=== PATIENT | female | born 1950 | race Caucasian/White ===

== ENCOUNTER 2020-10-11 08:01 | Outpatient (REF) | payer MEDICARE, SELFPAY ==
[2020-10-11 12:09] LABS: Thyroid Stimulating Hormone 1.07 uIU/mL (0.32-4.0)
== END 2020-10-11 08:02 | disposition home or self-care (01) ==
LOC: HO.HMGCLDS 08:01
PROVIDERS: PCP Internal Medicine; Visit Provider Internal Medicine Endocrinology, Diabetes & Metabolism
DX: E03.8 Other specified hypothyroidism (principal)
CPT/HCPCS: 36415; 84439; 84443

== ENCOUNTER → 2020-10-18 08:49 | Outpatient (BNVA) | payer MEDICARE, SELFPAY | PROVIDERS: PCP Internal Medicine; Referring Provider Internal Medicine; Visit Provider Internal Medicine Endocrinology, Diabetes & Metabolism | DX: Z76.89 Persons encountering health services in other specified circumstances (principal) | CPT/HCPCS: Q3014 ==

== ENCOUNTER 2021-04-11 07:48 | Outpatient (REF) | payer MEDICARE, SELFPAY ==
[2021-04-11 12:58] LABS: Free T4 (Free Thyroxine) 0.95 ng/dL (0.71-1.85); Thyroid Stimulating Hormone 1.12 uIU/mL (0.32-4.0)
== END 2021-04-11 07:49 | disposition home or self-care (01) ==
LOC: HO.HMGCLDS 07:48
PROVIDERS: PCP Internal Medicine; Visit Provider Internal Medicine Endocrinology, Diabetes & Metabolism
DX: E03.8 Other specified hypothyroidism (principal); E06.3 Autoimmune thyroiditis
CPT/HCPCS: 36415; 84439; 84443

== ENCOUNTER 2021-11-21 12:17 | Emergency (ER) | payer MEDICARE, SELFPAY ==
--- NOTE | ~2021-11-21 | CT_ITS ---
EXAMINATION: CT HEAD WITHOUT CONTRAST CLINICAL INFORMATION: Fall. Laceration to forehead. Headache. COMPARISON: Previous brain MRI August 2012 TECHNIQUE: Contiguous axial imaging was performed from the skull base to vertex without intravenous administration of contrast. This CT examination was performed using dose optimization techniques as appropriate, variously including the following: *Automated exposure control *Adjustment of mA and/or kV according to patient size (this includes techniques or standardized protocols for targeted exams where dose is matched to indication/reason for exam; i.e. extremities or head) *Use of iterative reconstruction technique DLP: 753 mGy-cm FINDINGS: There is no evidence of an extra-axial collection. There is no evidence of intra-axial or extra-axial hemorrhage. The ventricles and extra-axial CSF spaces are appropriate for age. Martinez-white matter differentiation is normal. No mass, mass effect or infarct is seen. Review of bone windows is normal. No skull fracture is seen. Visualized paranasal sinuses, mastoid air cells and middle ears are clear. There is soft tissue swelling over the left frontal bone. There is some soft tissue swelling and air seen over the bilateral midline frontal bones. CT/CT head/brain wo con IMPRESSION: No acute intracranial findings. No skull fracture. Soft tissue swelling over the frontal bones.
--- NOTE | ~2021-11-21 | CT_ITS ---
EXAMINATION: CT CERVICAL SPINE WITHOUT CONTRAST CLINICAL INFORMATION: Fall. Head injury. Neck pain. Rule out fracture. COMPARISON: None TECHNIQUE: Axial images through the cervical spine without contrast. Sagittal and coronal reconstructions on the technologist workstation were performed. This CT examination was performed using dose optimization techniques as appropriate, variously including the following: *Automated exposure control *Adjustment of mA and/or kV according to patient size (this includes techniques or standardized protocols for targeted exams where dose is matched to indication/reason for exam; i.e. extremities or head) *Use of iterative reconstruction technique DLP: 325 mGy-cm FINDINGS: Bone alignment is normal. No fracture or dislocation is seen. There is degenerative spondylosis and degenerative disc disease from C4-C5 to C6-C7. There are degenerative changes at the C1 dens articulation. There is bilateral facet arthritis. Prevertebral soft tissues are normal. There is bilateral carotid calcification. Visualized lung apices are clear. CT/CT cervical spine wo con IMPRESSION: Degenerative changes. No fracture or dislocation seen. Fleischner guidelines were followed.
[2021-11-21 12:32] VITALS: BP 139/66; PULSE 101; RESP 18; TEMP 36.8; O2SAT 100; BMI 25.8
--- NOTE | 2021-11-21 13:53 | ED_ITS ---
HPI - Fall General Chief Complaint: Fall Stated Complaint: Fall/head lac Time Seen by Provider: 11/21/21 12:28 Source: patient Mode of arrival: ambulatory Limitations: no limitations History of Present Illness HPI Narrative: 71-year-old female who presents emergency department for evaluation of a fall laceration to her forehead. The patient was walking her dog. She states she tripped and fell landing on her forehead. She denied any loss of consciousness. She states she was able to get up after the injury. She was brought to the emergency department by her brother. Here in the emergency department she has no complaints. She denies headache, nausea, vomiting, numbness, weakness, neck pain, chest pain, abdominal pain or extremity pain. The patient believes that her last tetanus shot was greater than 5 years prior but she is not certain. She is not on any blood thinners. complaint: fall Onset (ago): minute(s) (30) Fall from: standing Fall witnessed: no Place fall occurred: street Loss of consciousness: none Symptoms prior to fall: none Context: tripped/slipped Location of injury: head Associated symptoms (after fall): denies Related Data Home Medications Medication Instructions Recorded Confirmed fluoxetine 20 mg capsule mg PO 10/18/20 10/18/20 lamotrigine 200 mg tablet 200 mg PO BID 10/18/20 10/18/20 lorazepam 1 mg tablet 1 mg PO TID PRN 10/18/20 10/18/20 quetiapine 25 mg tablet 25 mg PO BEDTIME PRN 10/18/20 10/18/20 Previous Rx's Medication Instructions Recorded Levoxyl 112 mcg tablet 112 mcg PO DAILY 90 Days #60 tab NS 09/06/21 (levothyroxine) Allergies Allergy/AdvReac Type Severity Reaction Status Date / Time anasperine Allergy Unknown Unknown Uncoded 11/21/21 12:32 Review of Systems Review of Systems: Yes all other systems are reviewed and are negative COUNTS INCLUDE 234 BEDS AT THE [facility] Past Medical History COUNTS INCLUDE 234 BEDS AT THE [facility] Narrative: Past medical history: Depression, hypothyroidism. Past surgical history: Cholecystectomy, spinal surgery secondary to spinal stenosis. Social history: The patient denies tobacco, alcohol and drug use. Medical History Hypothyroidism Surgical History History of back surgery Hx of cholecystectomy Family History Family History (Updated 10/18/20 @ 08:11 by MIKE Cruz) Father Heart disease Mother Diabetes mellitus Social History Social History (Updated 10/18/20 @ 08:11 by MIKE Cruz) Advance Directives: No Advance Directives Information Provided: No Physical Exam Vital Signs: Vital Signs: Last Vital Signs Temp 98.2 F 11/21/21 15:22 Pulse 94 11/21/21 15:22 Resp 16 11/21/21 15:22 BP 119/58 L 11/21/21 15:22 Pulse Ox 96 11/21/21 15:22 BMI result Body Mass Index 25.8 Const: General: cooperative and no acute distress Orientation/co nsciousness: oriented to person and oriented to place Limitations: no limitations HENMT: Other: 13 cm C-shaped flap laceration to the forehead, it is not actively bleeding, she has tenderness with palpation around the area of the laceration with no hematoma and no depressed palpable skull fracture. Ears: external ears normal General nose exam: Normal external nose present Face and sinus: Yes normal facial exam Mouth: Normal oral and palatal mucosa present Throat: Yes posterior oropharynx normal Eyes: General: appearance normal, both eyes and all related structures Pupils: Equal, round and reactive pupils present Neck: Neck: Yes normal visual inspection, Yes no lymphadenopathy, Yes trachea midline and Yes supple Chest: Chest palpation & inspection: normal inspection of the chest and normal palpation of entire chest wall Resp: Effort & Inspection: normal respiratory effort and able to speak in c omplete sentences Auscultation: clear to auscultation bilaterally Cardio: Rate: regular rate Rhythm: regular rhythm Heart sounds: S1 normal heart sound present, S2 normal heart sound present and no murmurs GI: Inspection: Yes normal to inspection Palpation (GI): Soft to palpation, nontender and no guarding Auscultation: normal bowel sounds : General: Yes no CVA tenderness Back/Spine/Pelvis: Back: no CVA tenderness Skin: General skin exam: no rashes or lesions noted Neuro: General: oriented to person and oriented to place Cranial nerves: Yes CN's II-XII intact bilaterally and Yes Equal, round and reactive pupils present Cognition (Neuro): normal cognition Motor exam (neuro): 5/5 motor strength present throughout Extrem: General: Yes normal to inspection Psych: Appearance: grossly normal Speech and movement: Normal speech and movement present Affect: normal affect Attitude: cooperative Thought process: Normal thought process present Thought content: Normal thought content present Course Course Course Narrative: 71-year-old female who presents emergency department for evaluation of a trip and fall with a large flap laceration (12 cm) to her forehead. The patient had no loss of consciousness. She has no symptoms since the fall. Vital signs revealed an elevated pulse of 101 otherwise were unremarkable. Physical examination did reveal large flap laceration otherwise was unremarkable with a normal neurologic exam. Patient was ordered to get a Tdap vaccination IM. I also ordered a CT scan of the brain and cervical spine to rule out fracture/bleed. 1358: The patient's flap laceration was repaired by me, the patient required 15 Vicryl 5.0 internal stitches and 21 nylon 5.0 external stitches to close the wound. Patient tolerated the procedure well. CT scan of the head and cervical spine are still spending, the patient remained stable. 1529: CT scan of the head revealed soft tissue swelling over the frontal area but no acute fracture or bleed. CT scan of the cervical spine was consistent with degenerative arthritis otherwise unremarkable. The patient was discharged home. She was advised to contact her PCP to see if they can remove the stitches in 7-10 days, also refer her to the on-call surgeon in the event that her PCP is unable to remove the stitches or she can return to the emergency department. Procedures Laceration C-shaped flap laceration to forehead: Site: scalp and other (Forehead) Size (cm): 12 Description: flap Depth: involves muscle layer (Full skin thickness with exposure of underlying muscle/bone) Local Anesthetic: lidocaine 1% and bupivacaine 0.5% Amount of anesthesia used (mL): 10 Pre-repair: wound explored, irrigated extensively, deep structures intact and wound margins revised (Wound margins were undermined using scissors) Skin layer closed with: nylon Size (cm): 5-0 Number of sutures: 21 Technique: simple, interrupted Subcutaneous layer closed with: vicryl Size: 5-0 Number of sutures: 15 Technique: simple, interrupted Discharge Plan Discharge Clinical Impression: Fall, Complex laceration of forehead Patient Disposition: Home, Self-Care Instructions: Laceration (DC), Head Injury (ED) Additional Instructions: The CT scan of your head revealed no skull fracture and no bleeding in the brain. The CT scan of your neck revealed no broken bones. You had a complicated flap laceration to the scalp over your forehead. Your laceration was closed with 15 internal stitches and 21 external stitches. The external stitches will need to be removed in 7-10 days by your PCP. If your primary provider cannot remove the stitches, you then you can try our on-call surgeon (Dr. Braxton) to see if he can remove the stitches in his office or return to the emergency department. Apply bacitracin twice a day to the laceration until the stitches are removed. In order to reduce the scarring I want you to use vitamin-E. After the stitches are removed, purchased vitamin E capsules, break open the capsules and apply the liquid to the wound twice a day for 1 month. Vitamin-E slows down healing, scarring is caused by over healing. Try to keep sun off the wound since tanning the wound will also increase scarring. Follow-up with your doctor in 7-10 days. Please return to the emergency department if your symptoms get worse or if you develop any symptoms that are concerning to you. Please read the head injury instructions and the laceration instructions Prescriptions: No Action levothyroxine [Levoxyl] 112 mcg tablet 112 mcg PO DAILY 90 Days Qty: 60 0RF Rx Instructions: Dispense as written, brand medically necessary. Do not substitute. fluoxetine 20 mg capsule PO 0RF lamotrigine 200 mg tablet 200 mg PO BID 0RF lorazepam 1 mg tablet 1 mg PO TID PRN0RF quetiapine 25 mg tablet 25 mg PO BEDTIME PRN0RF Referrals: Joseluis Braxton MD [Physician] - 1 week
[2021-11-21] MEDS: Diphth,Pertus(ACell),Tet Adult 0.5 ML SYRINGE IM (14:09)
[2021-11-21] MEDS: Bacitracin Oint 14 GM TUBE 1 APPL TOPICAL (14:44)
[2021-11-21 15:22] VITALS: BP 119/58; PULSE 94; RESP 16; TEMP 36.8; O2SAT 96
--- NOTE | 2021-11-21 16:40 | PC.NURSE ---
HAIR CLEANED, AND DSD PLACED ON FOREHEAD LACERATION. NO ACTIVE BLEEDING GOOD WOUND APPROXIMATION, BACITRACIN NONSTICK WRAP
== END 2021-11-21 16:41 | disposition home or self-care (01) ==
PROVIDERS: Emergency Provider Emergency Medicine Emergency Medical Services; PCP Internal Medicine
DX: S01.81XA Laceration without foreign body of other part of head, initial encounter (principal); W01.0XXA Fall on same level from slipping, tripping and stumbling without subsequent striking against object, initial encounter; Y93.K1 Activity, walking an animal; Y92.480 Sidewalk as the place of occurrence of the external cause; Y99.9 Unspecified external cause status
CPT/HCPCS: 13132; 13133; 70450; 72125; 90471; 90715; 99283; 99284

== ENCOUNTER 2021-11-30 08:01 | Emergency (ER) | payer MEDICARE, SELFPAY ==
[2021-11-30 08:08] VITALS: BP 135/62; PULSE 88; RESP 17; TEMP 36.6; O2SAT 98; BMI 24.3
--- NOTE | 2021-11-30 09:02 | ED.GENADULT ---
HPI - General Adult General Chief complaint: General Medical Stated complaint: suture removal Time Seen by Provider: 11/30/21 08:22 Source: patient Mode of arrival: ambulatory History of Present Illness HPI narrative: 71-year-old female presenting to the ED for suture removal from forehead s/p mechanical slip and fall on 11/21. Patient was evaluated in our ED after incident where 21 external sutures were placed, imaging was unremarkable at that time. Patient denies complaints at present including fever, headache, nausea/vomiting, drainage from area, dehiscences. Onset (ago): day(s) Related Data Home Medications Medication Instructions Recorded Confirmed fluoxetine 20 mg capsule mg PO 10/18/20 10/18/20 lamotrigine 200 mg tablet 200 mg PO BID 10/18/20 10/18/20 lorazepam 1 mg tablet 1 mg PO TID PRN 10/18/20 10/18/20 quetiapine 25 mg tablet 25 mg PO BEDTIME PRN 10/18/20 10/18/20 Previous Rx's Medication Instructions Recorded Levoxyl 112 mcg tablet 112 mcg PO DAILY 90 Days #60 tab NS 09/06/21 (levothyroxine) Allergies Allergy/AdvReac Type Severity Reaction Status Date / Time anasperine Allergy Unknown Unknown Uncoded 11/21/21 12:32 Review of Systems Review of Systems: Constitutional: No Fever, No Chills ENT/Mouth: No Ear Pain, No Nasal Congestion, No sore throat, No Rhinorrhea, No Swallowing Difficulty Cardiovascular: No Chest Pain, No SOB Respiratory: No Cough, No Sputum, No Wheezing Gastrointestinal: No Nausea, No Vomiting, No Diarrhea, No Abdominal pain Genitourinary:No Dysuria, No Urinary Frequency, No Hematuria Musculoskeletal: No joint pain, No Myalgias, No Joint Swelling Skin: + Skin Lesions, No rash Neuro: No Weakness, No Numbness, No Paresthesias Yes all other systems are reviewed and are negative [facility] Past Medical History Attestation statement: The following information was validated with the patient. Medical History Hypothyroidism Surgical History History of back surgery Hx of cholecystectomy Family History Family History Father Heart disease Mother Diabetes mellitus Social History Social History Advance Directives: No Advance Directives Information Provided: Yes Physical Exam ED Vital Signs: Vital Signs - 24 hr 11/30/21 08:08 Temperature 97.9 F Pulse Rate 88 Respiratory Rate 17 Blood Pressure 135/62 Pulse Oximetry 98 BMI result Body Mass Index 24.3 Const General: cooperative and healthy appearing Orientation/consciousness: patient oriented x3 Limitations: no limitations HENMT Other: C-shaped laceration in noted to forehead with 21 sutures intact. Proper wound healing. No overlying cellulitis. No drainage. No fluctuance/induration Head: Yes normal to inspection Ears: hearing grossly normal bilaterally General nose exam: Normal external nose present Face and sinus: Yes normal facial exam Eyes General: appearance normal, both eyes and all related structures Eyelids: Yes eyelids normal Conjunctivae: conjunctivae normal Sclerae: sclerae normal EOM: EOMs intact bilaterally Neck Neck: Yes normal visual inspection and Yes no meningeal signs Resp Effort & Inspection: normal respiratory effort and no respiratory distress Auscultation: clear to auscultation bilaterally Cardio Rate: regular rate Heart sounds: S1 normal heart sound present and S2 normal heart sound present Skin Rashes: no rashes Wounds: no wounds Neuro General: patient oriented x3, gait normal, tone normal, moves all extremities, no meningeal signs and no focal motor deficits Gait exam (Neuro): Normal gait present Extrem General: Yes normal to inspection Procedures Procedure Narrative Procedure Narrative: Suture removal: 21 sutures removed from forehead. Mild central dehiscence, Steri-Strips applied. No overlying cellulitis/streaking, no drainage Medical Decision Making [facility] Narrative Medical decision making narrative: 71-year-old female presenting to the ED for suture removal from forehead s/p mechanical slip and fall on 11/21. On exam vital signs stable, NAD, 21 sutures intact to forehead, removed with mild dehiscence to central laceration. Steri-Strips applied. No overlying cellulitis. Discussed worrisome signs and symptoms and strict return precautions with patient. She verbalized understanding feel safe for discharge home at this time Medical Records Medical records reviewed: Yes I reviewed the patient's medical records. Lab Data Lab results reviewed: Yes I reviewed the patient's lab results. Discharge Plan Discharge Clinical Impression: Visit for suture removal, Skin wound closed with sterile strip Patient Disposition: Home, Self-Care Instructions: Stitches Removal (ED) Additional Instructions: Your stitches removed today in the emergency department, you may apply bacitracin or Neosporin and anti scar cream like Moderna Please avoid the sun as this will cause scarring, apply sunblock if you plan on being exposed to sunlight If area begins to look infected, is red, there is drainage or you have fever, headache, persistent nausea or vomiting please return to the emergency department Prescriptions: No Action levothyroxine [Levoxyl] 112 mcg tablet 112 mcg PO DAILY 90 Days Qty: 60 0RF Rx Instructions: Dispense as written, brand medically necessary. Do not substitute. fluoxetine 20 mg capsule PO 0RF lamotrigine 200 mg tablet 200 mg PO BID 0RF lorazepam 1 mg tablet 1 mg PO TID PRN0RF quetiapine 25 mg tablet 25 mg PO BEDTIME PRN0RF Referrals: Jami Mckeon MD [Primary Care Provider] - 2 days Eliezer Naranjo MD [Physician] - 2 days Interventions: ED Discharge Assessment Last Done: 11/30/21 09:24 Discharge Date/Time: 11/30/21 09:25
== END 2021-11-30 09:25 | disposition home or self-care (01) ==
PROVIDERS: Emergency Provider Emergency Medicine; PCP Internal Medicine
DX: Z48.02 Encounter for removal of sutures (principal); S01.81XD Laceration without foreign body of other part of head, subsequent encounter; W01.0XXD Fall on same level from slipping, tripping and stumbling without subsequent striking against object, subsequent encounter
CPT/HCPCS: 99283

== ENCOUNTER 2022-01-11 13:28 | Outpatient (REF) | payer MEDICARE, SELFPAY ==
[2022-01-11 16:58] LABS: Free T4 (Free Thyroxine) 1.18 ng/dL (0.71-1.85); Thyroid Stimulating Hormone 0.02 uIU/mL (0.32-4.0)
== END 2022-01-11 13:29 | disposition home or self-care (01) ==
LOC: HO.HMGCLDS 13:28
PROVIDERS: PCP Internal Medicine; Visit Provider Internal Medicine Endocrinology, Diabetes & Metabolism
DX: E03.8 Other specified hypothyroidism (principal); E06.3 Autoimmune thyroiditis
CPT/HCPCS: 36415; 84439; 84443

== ENCOUNTER 2022-02-28 13:53 | Outpatient (REF) | payer MEDICARE, SELFPAY ==
[2022-02-28 17:12] LABS: Free T4 (Free Thyroxine) 0.92 ng/dL (0.71-1.85); Thyroid Stimulating Hormone 0.11 uIU/mL (0.32-4.0)
== END 2022-02-28 13:54 | disposition home or self-care (01) ==
LOC: HO.HMGCLDS 13:53
PROVIDERS: Visit Provider Internal Medicine Endocrinology, Diabetes & Metabolism
DX: E03.8 Other specified hypothyroidism (principal); E06.3 Autoimmune thyroiditis
CPT/HCPCS: 36415; 84439; 84443

== ENCOUNTER 2022-03-26 10:32 | Outpatient (REF) | payer MEDICARE, SELFPAY ==
[2022-03-26 11:18] LABS: MANUAL DIFF FLAG NO
[2022-03-26 11:26] LABS: Basophils Absolute Auto 0.1 X10*3/uL (0.0-0.2); Basophils Percent Auto 0.9 % (0-2); Eosinophils Absolute Auto 0.2 X10*3/uL (0.0-0.4); Eosinophils Percent Auto 3.2 % (0-4); Hematocrit 40.1 % (37.0-47.0); Hemoglobin 13.2 g/dl (12.0-16.0); Imm Gran Abs Auto 0.02 X10*3/uL (0.00-0.03); Imm Gran Pct Auto 0.4 % (0.0-0.4); Lymphocytes Absolute Auto 1.4 X10*3/uL (1.2-4.9); Mean Corpuscular HGB Conc 32.9 g/dl (31.0-35.0); Mean Corpuscular Hemoglobin 31.1 pg (27.0-33.0); Mean Corpuscular Volume 94.6 fL (80.0-98.0); Mean Platelet Volume 9.6 fL (9.4-12.3); Monocytes Absolute Auto 0.5 X10*3/uL (0.1-1.2); Monocytes Percent Auto 9.7 % (2-11); Neutrophils Absolute Auto 3.4 x10*3/uL (2.0-8.3); Neutrophils Percent Auto 60.8 % (45-73); Platelet Count 255 X10*3/uL (160-400); Red Blood Count 4.24 X10*6/uL (4.20-5.50); White Blood Count 5.6 X10*3/uL (4.8-10.8)
[2022-03-26 11:55] LABS: Alanine Aminotransferase 6 U/L (0-31); Albumin Level 4.2 g/dL (3.5-5.0); Alkaline Phosphatase 90 U/L (39-117); Anion Gap 12 (12-20); Aspartate Amino Transferase 9 U/L (5-31); Bilirubin Total 0.7 mg/dL (0.0-1.0); Blood Urea Nitrogen 16 mg/dL (9-16); Calcium 9.3 mg/dL (8.4-10.2); Carbon Dioxide 27 mmol/L (22-29); Chloride 106 mmol/L (96-108); Cholesterol 186 mg/dL; Estimated Glomerular Filt Rate > 60; Glucose Fasting 99 mg/dL (60-99); HDL Cholesterol 60 mg/dL; LDL Cholesterol Calculated 108 mg/dl; Potassium 4.2 mmol/L (3.3-5.1); Sodium 141 mmol/L (135-145); Total Protein 6.6 g/dL (6.5-8.0); Triglycerides 91 mg/dL
[2022-03-26 12:23] LABS: Vitamin B12 228 pg/mL (200-900)
[2022-03-30 15:26] LABS: Vitamin D 25-OH, D2 <4 ng/mL; Vitamin D 25-OH, D3 33 ng/mL; Vitamin D 25-OH, Total 33 ng/mL (30-100)
== END 2022-03-26 10:33 | disposition home or self-care (01) ==
LOC: HO.HMGCLDS 10:32
PROVIDERS: PCP Internal Medicine; Visit Provider Internal Medicine
DX: Z00.01 Encounter for general adult medical examination with abnormal findings (principal); E03.8 Other specified hypothyroidism; Z86.39 Personal history of other endocrine, nutritional and metabolic disease
CPT/HCPCS: 36415; 80053; 80061; 82306; 82607; 85025

== ENCOUNTER → 2022-03-29 08:18 | Outpatient (BNVA) | payer MEDICARE, SELFPAY | PROVIDERS: PCP Internal Medicine; Visit Provider Internal Medicine Endocrinology, Diabetes & Metabolism | DX: E03.8 Other specified hypothyroidism (principal); E06.3 Autoimmune thyroiditis | CPT/HCPCS: 36415; 84439; 84443; 99212 ==

== ENCOUNTER 2022-03-29 08:54 | Outpatient (REF) | payer MEDICARE, SELFPAY ==
[2022-03-29 11:11] LABS: Free T4 (Free Thyroxine) 0.87 ng/dL (0.71-1.85); Thyroid Stimulating Hormone 0.29 uIU/mL (0.32-4.0)
== END 2022-03-29 08:55 | disposition home or self-care (01) ==
LOC: HO.10HDL 08:54
PROVIDERS: Visit Provider Internal Medicine Endocrinology, Diabetes & Metabolism
DX: Z13.89 Encounter for screening for other disorder (principal)
CPT/HCPCS: 36415; 84439; 84443

== ENCOUNTER 2022-04-03 12:29 | Outpatient (REF) | payer MEDICARE, SELFPAY ==
--- NOTE | ~2022-04-03 | MM_ITS ---
EXAMINATION: BONE DENSITOMETRY CLINICAL INDICATION: Menopause. COMPARISON: Baseline BD dated 01/27/2009. TECHNIQUE: Using a [employer] DXA System (software version: 13.1) manufactured by [employer], dual-energy x-ray absorptiometry was performed of the lumbar spine and left hip. The images are of good technical quality. Summary results are attached. FINDINGS: AP SPINE L1-L2 (excluding L3 and L4): The data of L1-L4 has been changed to exclude the L3 and L4 vertebral bodies, because degenerative changes at these levels may cause overestimation of lumbar spine density. Current: BMD 1.317 g/cm2, Z-score 2.6, T-score 1.3, normal, 5.1% decrease from baseline (<5% change is not significant). Baseline: BMD 1.388 g/cm2. LEFT FEMUR, NECK: Current: BMD 0.800 g/cm2, Z-score -0.2, T-score -1.7, osteopenia. LEFT FEMUR, TOTAL: Current: BMD 0.905 g/cm2, Z-score 0.5, T-score -0.8, normal. IDENTIFIED RISK FACTORS: Menopause, recurrent falls. HISTORY OF FRACTURE: None listed. MEDICATIONS: None listed. MM/XR DEXA axial skeleton IMPRESSION: 1. DIAGNOSIS: Osteopenia based on the lowest T-score value of -1.7 in the femoral neck applying World Health Organization criteria. 2. 10-YEAR FRACTURE RISK PREDICTION, FRAX: Major osteoporotic fracture (clinical spine, forearm, hip or shoulder) 10.8%. Hip fracture 1.9%. 3. Treatment Recommendations: NOF guidelines recommend consideration for treatment in postmenopausal women and men age 50 and older presenting with the following: -A hip or vertebral (clinical or morphometric) fracture. -T-score less than or equal to -2.5 at the femoral neck or spine after appropriate evaluation to exclude secondary causes. -Low bone mass at the hip or spine and a 10-year fracture probability by FRAX of greater than or equal to 3% for hip fracture or greater than or equal to 20% for major osteoporotic fracture based on the [place] adapted WHO algorithm. 4. Other Recommendations: All treatment decisions require clinical judgment and consideration of individual patient factors, including patient preferences, comorbidities, previous drug use, risk factors not captured in the FRAX model (e.g. frailty, falls, vitamin D deficiency, increased bone turnover, interval significant decline in bone density) and possible under or overestimation of fracture risk by FRAX. Additional medical evaluation for secondary cause of low bone mineral density may be appropriate. FUTURE SCAN RECOMMENDATION: People with diagnosed cases of osteoporosis or at high risk for fracture should have regular bone mineral density tests. For patients eligible for Medicare, routine testing is allowed once every 2 years. The testing frequency can be increased to one year for patients who have rapidly progressing disease, those who are receiving or discontinuing medical therapy to restore bone mass, or have additional risk factors.
--- NOTE | ~2022-04-03 | MM_ITS ---
EXAMINATION: MM SCREENING DIGITAL BREAST TOMOSYNTHESIS, BILATERAL CLINICAL INFORMATION: Screening. Asymptomatic. Benign right ultrasound-guided biopsy 10/06/2007 (fibroadenoma, no clip placed - measurements 1.2 x 0.6 x 1.0 cm). The lifetime risk of breast cancer based on the Tyrer-Cuzick Model is 6%. COMPARISON: Current exam is new baseline. Comparison is made with reports from prior purged imaging (no images for direct comparison): Mammography 01/27/2009, 10/01/2007, 09/22/2007, ultrasound right breast 10/01/2007, ultrasound-guided right breast biopsy 10/06/2007. TECHNIQUE: Digital breast tomosynthesis is performed in both the craniocaudal and mediolateral oblique views along with computer-aided detection (CAD). Synthesized 2D images are generated from the tomosynthesis. FINDINGS: There are scattered areas of fibroglandular density (ACR BI-RADS breast composition Category b). Left breast has a 1 cm probable intradermal mass with smooth margins posterior medial breast near the inframammary fold. The remainder of the breasts show no significant mass or architectural abnormality or abnormal calcification. The axilla are unremarkable. There is history of prior right breast biopsy 12:00 position in 2010 (fibroadenoma, no clips placed). MM/MM tomosynthesis screening BI IMPRESSION: Left: -Smooth 1 cm mass posterior inferior medial breast, likely intradermal lesion. Right: -No mammographic evidence of malignancy. ASSESSMENT: BI-RADS 0: Incomplete - Need Additional Imaging Evaluation RECOMMENDATION: 1. Targeted ultrasound left breast. 2. Radiology department staff will contact the patient for additional imaging. This patient's information was entered into a reminder system with a target due date for their next mammogram.
== END 2022-04-03 12:30 | disposition home or self-care (01) ==
LOC: HO.MAMMO 12:29
PROVIDERS: PCP Internal Medicine; Visit Provider Internal Medicine
DX: Z12.31 Encounter for screening mammogram for malignant neoplasm of breast (principal); Z13.820 Encounter for screening for osteoporosis; Z78.0 Asymptomatic menopausal state
CPT/HCPCS: 77063; 77067; 77080

== ENCOUNTER 2022-04-12 12:53 | Outpatient (REF) | payer MEDICARE, SELFPAY ==
--- NOTE | ~2022-04-12 | US_ITS ---
EXAMINATION: US DIAGNOSTIC ULTRASOUND BREAST, LEFT CLINICAL INFORMATION: Recall from new baseline mammography for smooth mass posterior inferior medial left breast, likely intradermal. COMPARISON: New baseline mammography 04/03/2022. TECHNIQUE: Ultrasound left breast is targeted to the area of mammographic interest using grayscale imaging and color Doppler without and with harmonics. FINDINGS: There is an intradermal hypoechoic circumscribed oval mass posterior inferior medial left breast measuring 1.1 x 0.6 x 1.0 cm. There are some heterogeneous internal echogenicity. Increased through-transmission of sound is present. There is claw sign with the deep dermis. There is no internal or peripheral color flow. Results are discussed with the patient at time of visit. The finding is consistent with intradermal cystic lesion, likely sebaceous cyst. Patient confirms that the finding has been present for several years and without significant change. If increasing, it would be amenable to simple surgical excision. US/US breast LT limited IMPRESSION: Cystic intradermal lesion posterior inferior medial left breast 1.1 cm consistent with sebaceous cyst. ASSESSMENT: BI-RADS 2: Benign RECOMMENDATION: 1. Patient may be managed based on the clinical impression. If clinically indicated, the lesion would be amenable to simple surgical excision. 2. Otherwise, routine annual screening mammography. This patient's information was entered into a reminder system with a target due date for their next mammogram.
== END 2022-04-12 12:54 | disposition home or self-care (01) ==
LOC: HO.MAMMO 12:53
PROVIDERS: PCP Internal Medicine; Visit Provider Internal Medicine
DX: N63.25 Unspecified lump in the left breast, overlapping quadrants (principal)
CPT/HCPCS: 76642

== ENCOUNTER 2022-05-15 11:38 | Outpatient (REF) | payer MEDICARE, SELFPAY ==
[2022-05-15 14:27] LABS: Free T4 (Free Thyroxine) 0.82 ng/dL (0.71-1.85); Thyroid Stimulating Hormone 1.72 uIU/mL (0.32-4.0)
== END 2022-05-15 11:39 | disposition home or self-care (01) ==
LOC: HO.HMGCLDS 11:38
PROVIDERS: PCP Internal Medicine; Visit Provider Internal Medicine Endocrinology, Diabetes & Metabolism
DX: E06.3 Autoimmune thyroiditis (principal); E03.8 Other specified hypothyroidism
CPT/HCPCS: 36415; 84439; 84443

== ENCOUNTER → 2022-09-27 08:52 | Outpatient (BNVA) | payer MEDICARE, SELFPAY | PROVIDERS: PCP Internal Medicine; Visit Provider Internal Medicine Endocrinology, Diabetes & Metabolism | DX: E03.8 Other specified hypothyroidism (principal); E06.3 Autoimmune thyroiditis | CPT/HCPCS: 99212 ==

== ENCOUNTER 2023-03-22 09:28 | Outpatient (REF) | payer MEDICARE, SELFPAY ==
[2023-03-22 11:24] LABS: MANUAL DIFF FLAG NO
[2023-03-22 11:27] LABS: Basophils Absolute Auto 0.1 X10*3/uL (0.0-0.2); Eosinophils Absolute Auto 0.2 X10*3/uL (0.0-0.4); Eosinophils Percent Auto 2.6 % (0-4); Hematocrit 41.5 % (37.0-47.0); Imm Gran Abs Auto 0.02 X10*3/uL (0.00-0.03); Imm Gran Pct Auto 0.3 % (0.0-0.4); Lymphocytes Absolute Auto 1.2 X10*3/uL (1.2-4.9); Lymphocytes Percent Auto 17.5 % (20-40); Mean Corpuscular HGB Conc 33.7 g/dl (31.0-35.0); Mean Corpuscular Hemoglobin 32.3 pg (27.0-33.0); Mean Corpuscular Volume 95.6 fL (80.0-98.0); Mean Platelet Volume 9.8 fL (9.4-12.3); Monocytes Absolute Auto 0.6 X10*3/uL (0.1-1.2); Neutrophils Absolute Auto 4.8 x10*3/uL (2.0-8.3); Neutrophils Percent Auto 70.6 % (45-73); Platelet Count 317 X10*3/uL (160-400); Red Blood Count 4.34 X10*6/uL (4.20-5.50); Red Cell Distribution Width 13.3 % (11.0-16.0); White Blood Count 6.9 X10*3/uL (4.8-10.8)
[2023-03-22 12:12] LABS: Alanine Aminotransferase 10 U/L (0-31); Albumin Level 4.3 g/dL (3.5-5.0); Alkaline Phosphatase 65 U/L (39-117); Anion Gap 16 (12-20); Aspartate Amino Transferase 14 U/L (5-31); Bilirubin Total 0.9 mg/dL (0.0-1.0); Blood Urea Nitrogen 20 mg/dL (9-16); Calcium 10.1 mg/dL (8.4-10.2); Carbon Dioxide 26 mmol/L (22-29); Chloride 103 mmol/L (96-108); Cholesterol 247 mg/dL; Estimated Glomerular Filt Rate 43; Glucose Fasting 95 mg/dL (60-99); HDL Cholesterol 62 mg/dL; LDL Cholesterol Calculated 165 mg/dl; Potassium 4.1 mmol/L (3.3-5.1); Sodium 141 mmol/L (135-145); Total Protein 7.2 g/dL (6.5-8.0); Triglycerides 100 mg/dL
[2023-03-22 12:21] LABS: TSH reflex Free T4 20.13 uIU/mL (0.32-4.0)
[2023-03-22 14:39] LABS: Free T4 (Free Thyroxine) 0.94 ng/dL (0.71-1.85)
== END 2023-03-22 09:29 | disposition home or self-care (01) ==
LOC: HO.HMGCLDS 09:28
PROVIDERS: PCP Internal Medicine; Visit Provider Internal Medicine
DX: Z00.01 Encounter for general adult medical examination with abnormal findings (principal); E03.8 Other specified hypothyroidism; F31.9 Bipolar disorder, unspecified; F41.1 Generalized anxiety disorder
CPT/HCPCS: 36415; 80053; 80061; 84439; 84443; 85025

== ENCOUNTER 2023-04-16 10:19 | Outpatient (REF) | payer MEDICARE, SELFPAY ==
--- NOTE | ~2023-04-16 | MM_ITS ---
EXAMINATION: MM SCREENING DIGITAL BREAST TOMOSYNTHESIS, BILATERAL CLINICAL INFORMATION: Screening. Asymptomatic. Patient has a known sebaceous cyst in the region of the left breast, 15 cm from the nipple. The lifetime risk of breast cancer based on the Tyrer-Cuzick Model is 4%. COMPARISON: Mammography: This study is compared with prior exams dating back to 2017. TECHNIQUE: Digital breast tomosynthesis is performed in both the craniocaudal and mediolateral oblique views along with computer-aided detection (CAD). Synthesized 2D images are generated from the tomosynthesis. FINDINGS: There are scattered areas of fibroglandular density (ACR BI-RADS breast composition Category b). There are no significant masses, abnormal calcifications, or other abnormalities. Scattered benign calcifications are present in each breast. The known sebaceous cyst in the medial aspect of the left breast is slightly larger. MM/MM tomosynthesis screening BI IMPRESSION: No mammographic evidence of malignancy. ASSESSMENT: BI-RADS BI-RADS 2 - Benign Findings RECOMMENDATION: Routine annual mammography screening. 1 year F/U This examination should not preclude the clinical evaluation of a suspicious palpable abnormality. This patient's information was entered into a reminder system with a target due date for their next mammogram.
== END 2023-04-16 10:20 | disposition home or self-care (01) ==
LOC: HO.MAMMO 10:19
PROVIDERS: PCP Internal Medicine; Visit Provider Internal Medicine
DX: Z12.31 Encounter for screening mammogram for malignant neoplasm of breast (principal)
CPT/HCPCS: 77063; 77067

== ENCOUNTER → 2023-04-16 11:00 | Outpatient (BNV) | payer MEDICARE, SELFPAY | PROVIDERS: PCP Internal Medicine; Visit Provider Radiology Diagnostic Radiology | DX: Z12.31 Encounter for screening mammogram for malignant neoplasm of breast (principal) | CPT/HCPCS: 77063; 77067 ==

== ENCOUNTER 2023-05-07 13:36 | Outpatient (REF) | payer MEDICARE, SELFPAY ==
[2023-05-07 17:20] LABS: TSH reflex Free T4 13.69 uIU/mL (0.32-4.0)
[2023-05-07 17:50] LABS: Free T4 (Free Thyroxine) 0.75 ng/dL (0.71-1.85)
== END 2023-05-07 13:37 | disposition home or self-care (01) ==
LOC: HO.HMGCLDS 13:36
PROVIDERS: PCP Internal Medicine; Visit Provider Internal Medicine
DX: E03.8 Other specified hypothyroidism (principal); E06.3 Autoimmune thyroiditis
CPT/HCPCS: 36415; 84439; 84443

== ENCOUNTER 2023-05-08 13:53 | Outpatient (AMB) | payer MEDICARE, SELFPAY ==
[2023-05-08 14:00] VITALS: BP 114/60; PULSE 94; O2SAT 93; BMI 30.3
--- NOTE | 2023-05-08 14:00 | MHC.PC.OV ---
Vital Signs 05/08/23 14:00 Height 5 ft 8 in Weight 199 lb 4 oz BMI 30.3 BP 114/60 Blood Pressure Location Rt brachial Position Sitting Pulse 94 Pulse Source Pulse Oximeter Pulse Oximetry (%) 93 Oxygen Delivery Method Room Air Intake Visit Reasons: Thyroid Allergies anasperine Allergy (Unknown, Uncoded 09/27/22 08:59) swelling Medication List - Last Reconciled 05/08/23 by Jami Mckeon MD fluoxetine 20 mg PO gabapentin 100 mg PO DAILY levothyroxine 75 mcg PO DAILY lorazepam 1 mg PO TID PRN Tobacco use date assessed: 05/08/23 Fall risk assessment: 1 Fall in past year Last assessed Fall Risk: 05/08/23 Dental Screening Dental Screen Date: 05/08/23 Did you have a dental visit in the last 12 months?: No Did you have a dental problem in the last 6 months where you did not have access to dental care?: No Was dental information given to patient?: No HPI Thyroid HPI Details TSH came back at 13.69 Patient is on levothyroxine 75 mcg She was seeing Dr. Richard and then she stopped going Patient is not taking medication as it is prescribed sometimes she take it in the afternoon sometimes in the morning sometimes at night Explained to patient that medication need to be taken on empty stomach and do not eat anything for 20 minutes at least so that the medication have a chance to be absorbed I am increasing the dose to 125 mcg as she tells me that she has been taking it regularly since March. Her TSH has improved from before but it is still very high. Side effect of hypothyroidism also discussed with the patient it seems as if she also have a very irregular sleep cycle which can be secondary to hypothyroidism Her LDL is also elevated, we will repeat that after TSH becomes normal. Patient is to repeat labs again in 6 weeks after starting 125 mcg of levothyroxine Follow-up 2 months [facility] Medical History Hypothyroidism Surgical History History of back surgery Hx of cholecystectomy Family History Father Heart disease Mother Diabetes mellitus Social History Housing: Other (mobile home) Patient Tobacco Use Status: Never used Tobacco e-Cigarette/Vaping Use: Never Used service: No Current occupational status: retired Cognitive needs: No Hearing needs: No Vision needs: No Questionnaire AUDIT C Alcohol Use Questionnaire (AUDIT-C) 1. How often do you have a drink containing alcohol?: Never 3. How often do you have six or more drinks on one occasion?: Never Total Score: 0 Score Reviewed/Action Taken: Yes Review of Systems Const Denies chills and Denies fever(s) ENT Denies epistaxis and Denies nasal discharge Card Denies chest pain Resp Denies chest congestion, Denies cough and Denies hemoptysis GI Denies diarrhea and Denies nausea Skin/Breast Denies rash Neuro Reports no additional complaints Psych Reports no additional complaints Endo Reports no additional complaints Physical exam (Primary Care) Vital Signs: Last Vital Signs Pulse 94 05/08/23 14:00 BP 114/60 05/08/23 14:00 Pulse Ox 93 05/08/23 14:00 Oxygen Delivery Method Room Air 05/08/23 14:00 BMI result Body Mass Index 30.3 Tobacco/Smoking Status: Tobacco use Status Tobacco use date assessed 05/08/23 05/08/23 14:01 Patient Tobacco Use Status Never used Tobacco 05/08/23 14:01 e-Cigarette/Vaping Use Never Used 05/08/23 14:01 Const General: cooperative, comfortable and no acute distress Orientation/consciousness: patient oriented x3 HENMT Head: Yes normocephalic Eyes General: appearance normal, both eyes and all related structures Neck Neck: Yes supple Resp Effort & Inspection: normal respiratory effort, no cough and no stridor Cardio Rhythm: regular rhythm Heart sounds: S1 normal heart sound present and S2 normal heart sound present Skin General skin exam: turgor normal Neuro General: patient oriented x3, tone normal and moves all extremities Extrem Right lower extremity: no edema Left lower extremity: no edema Assessment and Plan Assessment & Plan (1) Major depression, recurrent: Code(s): F33.9 - Major depressive disorder, recurrent, unspecified (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 Richard and then she stopped going Patient is not taking medication as it is prescribed sometimes she take it in the afternoon sometimes in the morning sometimes at night Explained to patient that medication need to be taken on empty stomach and do not eat anything for 20 minutes at least so that the medication have a chance to be absorbed I am increasing the dose to 125 mcg as she tells me that she has been taking it regularly since March. Her TSH has improved from before but it is still very high. Side effect of hypothyroidism also discussed with the patient it seems as if she also have a very irregular sleep cycle which can be secondary to hypothyroidism Her LDL is also elevated, we will repeat that after TSH becomes normal. Patient is to repeat labs again in 6 weeks after starting 125 mcg of levothyroxine Follow-up 2 months Orders: Orders TSH reflex Free T4 6 Weeks E03.9 - Hypothyroidism, unspecified Medications: Changed From levothyroxine 75 mcg PO DAILY 30 tabs 10RF To levothyroxine Take it on empty stomach and do not eat anything for 20 minutes 125 mcg PO DAILY 90 tabs 0RF 90 days Coding Level of Care Code Est Pt Level 4 (38806) Diagnoses Major depression, recurrent F33.9 Sleep-wake cycle disorder G47.20 Other specified hypothyroidism E03.8
== END 2023-05-08 14:27 | disposition home or self-care (01) ==
PROVIDERS: PCP Internal Medicine; Visit Provider Internal Medicine
DX: F33.9 Major depressive disorder, recurrent, unspecified (principal); G47.20 Circadian rhythm sleep disorder, unspecified type; E03.8 Other specified hypothyroidism
CPT/HCPCS: 99214

== ENCOUNTER 2023-06-26 12:26 | Outpatient (REF) | payer MEDICARE, SELFPAY ==
[2023-06-26 16:52] LABS: TSH reflex Free T4 0.04 uIU/mL (0.32-4.0)
[2023-06-26 19:07] LABS: Free T4 (Free Thyroxine) 1.15 ng/dL (0.71-1.85)
== END 2023-06-26 12:27 | disposition home or self-care (01) ==
LOC: HO.HMGCLDS 12:26
PROVIDERS: PCP Internal Medicine; Visit Provider Internal Medicine
DX: E03.9 Hypothyroidism, unspecified (principal)
CPT/HCPCS: 36415; 84439; 84443

== ENCOUNTER 2023-07-09 12:50 | Outpatient (AMB) | payer MEDICARE, SELFPAY ==
--- NOTE | 2023-07-09 12:58 | MHC.PC.OV ---
Vital Signs 07/09/23 12:59 Height 5 ft 8 in Weight 188 lb BMI 28.6 BP 110/64 Blood Pressure Location Rt brachial Position Sitting Pulse 104 H Pulse Source Pulse Oximeter Pulse Oximetry (%) 92 Oxygen Delivery Method Room Air Intake Visit Reasons: 2 month fu Allergies anasperine Allergy (Unknown, Uncoded 09/27/22 08:59) swelling Medication List - Last Reconciled 07/09/23 by Jami Mckeon MD fluoxetine 20 mg PO gabapentin 100 mg PO DAILY levothyroxine 100 mcg PO DAILY 90 days lorazepam 1 mg PO TID PRN Tobacco use date assessed: 07/09/23 Fall risk assessment: 1 Fall in past year Last assessed Fall Risk: 07/09/23 Dental Screening Dental Screen Date: 07/09/23 Did you have a dental visit in the last 12 months?: Yes Did you have a dental problem in the last 6 months where you did not have access to dental care?: No Was dental information given to patient?: Patient has dentist HPI 2 month fu HPI Details Patient is 73-year-old female with history of bipolar disorder Patient was seeing a psychiatrist who is no longer practicing Patient is taking Seroquel 300 mg at night and lorazepam 1 mg t.i.d. for years. Continued to feel jittery during the daytime. Recently she also found to have low TSH level and we adjusted her thyroid does Patient will repeat labs again end of next month. Meanwhile I have sent a gabapentin 300 mg she may take that 1 in the morning it will help her with her anxiety. Patient was notified that if she wants me to take over her psychiatric medications it is important that she be seen every 3 months for medication refill. Patient is aware of side effects like , this medication lorazepam, has a risk of being habit forming, slowing of relfexes, dizziness, and its controlled in nature, will need 3 M visit Patient says that she need to be reminded about her thyroid blood test for next month We will book a telemedicine visit for 2 weeks to see how she is doing with the gabapentin and will remind her regarding the blood test as well. Meanwhile I would recommend that she joint [employer] [facility] that will help her socialize and will help her with her depression symptoms. [facility] Medical History Hypothyroidism Surgical History History of back surgery Hx of cholecystectomy Family History Father Heart disease Mother Diabetes mellitus Social History Housing: Other (mobile home) Patient Tobacco Use Status: Never used Tobacco e-Cigarette/Vaping Use: Never Used service: No Current occupational status: retired Cognitive needs: No Hearing needs: No Vision needs: No Questionnaire PHQ-9 Over the last 2 weeks, how often have you been bothered by any of the following problems? 1. Little interest or pleasure in doing things: nearly every day 2. Feeling down, depressed, or hopeless: nearly every day 3. Trouble falling or staying asleep, or sleeping too much: more than half the days 4. Feeling tired or having little energy: nearly every day 5. Poor appetite or overeating: nearly every day 6. Feeling bad about yourself - or that you are a failure or have let yourself or your family down: nearly every day 7. Trouble concentrating on things, such as reading the newspaper or watching television: nearly every day 8. Moving or speaking so slowly that other people could have noticed. Or the opposite - being so fidgety or restless that you have been moving around a lot more than usual: nearly every day 9. Thoughts that you would be better off or of hurting yourself in some way: nearly every day Total score: 26 Depression Screening Interpretation: Positive Depression Screening Follow-up: Existing condition and In treatment Depression Screening Done: Yes [id number] - PHQ-9 Billing: Yes Source: Developed by Drs. Jason Malin, Yohana Fritz, Rei Trevino and colleagues, with an educational shonda from [employer]. Thrive Questionnaire Date Thrive assessed: 07/09/23 I am a: Patient What is your living situation today?: I have a steady place to live Within the past 12 months, did the food you bought not last and you didn't have the money to get more?: Never true Within the past 12 months, did you worry whether your food would run out before you got money to buy more?: Never true Do you have trouble paying for medicines?: No Do you have trouble getting transportation to medical appointments?: No Do you have trouble paying your heating and electricity bill?: No Do you have trouble taking care of your child, family member or friend?: No Do you have trouble with day-to-day activities such as bathing, preparing meals, shopping, managing finances, etc.?: No Are you currently unemployed and looking for a job?: No Are you interested in more education?: No Please select the resources that you would like help with: Food, Paying for medicine, Transportation, Utilities, Childcare, Care for elder or disabled, Daily support and Job search/training AUDIT C Alcohol Use Questionnaire (AUDIT-C) 1. How often do you have a drink containing alcohol?: Never 3. How often do you have six or more drinks on one occasion?: Never Total Score: 0 Score Reviewed/Action Taken: Yes BATSHEVA-7 AMB Questionnaire BATSHEVA-7 Date BATSHEVA - 7 assessed: 07/09/23 Source: Developed by Drs. Jason Malin, Yohana Fritz, Rei Trevino and colleagues, with an educational shonda from [employer]. BATSHEVA-7 Assessment Billing BATSHEVA-7 Assessment Tool: pt declined-do not bill Review of Systems Const Denies chills and Denies fever(s) ENT Denies epistaxis and Denies nasal discharge Card Denies chest pain Resp Denies chest congestion, Denies cough and Denies hemoptysis GI Denies diarrhea and Denies nausea Skin/Breast Denies rash Neuro Reports no additional complaints Psych Reports no additional complaints Endo Reports no additional complaints Physical exam (Primary Care) Vital Signs: Last Vital Signs Pulse 104 H 07/09/23 12:59 BP 110/64 07/09/23 12:59 Pulse Ox 92 07/09/23 12:59 Oxygen Delivery Method Room Air 07/09/23 12:59 BMI result Body Mass Index 28.6 Tobacco/Smoking Status: Tobacco use Status Tobacco use date assessed 07/09/23 07/09/23 13:02 Patient Tobacco Use Status Never used Tobacco 07/09/23 13:02 e-Cigarette/Vaping Use Never Used 07/09/23 13:02 PHQ-9: PHQ-9 Score PHQ-9: Total score 26 07/09/23 13:26 Depression Screening Interpretation: Positive Depression Screening Follow-up: Existing condition and In treatment Thrive Assessment: Date of Thrive Assessment Date Thrive assessed 07/09/23 07/09/23 13:26 Const General: cooperative, comfortable and no acute distress Orientation/consciousness: patient oriented x3 HENMT Head: Yes normocephalic Eyes General: appearance normal, both eyes and all related structures Neck Neck: Yes supple Resp Effort & Inspection: normal respiratory effort, no cough and no stridor Cardio Rhythm: regular rhythm Heart sounds: S1 normal heart sound present and S2 normal heart sound present Skin General skin exam: turgor normal Neuro General: patient oriented x3, tone normal and moves all extremities Extrem Right lower extremity: no edema Left lower extremity: no edema Assessment and Plan Assessment & Plan (1) Major depression, recurrent: Code(s): F33.9 - Major depressive disorder, recurrent, unspecified Qualifiers: Active/Remission status: in partial remission Qualified Code(s): F33.41 - Major depressive disorder, recurrent, in partial remission (2) Bipolar 1 disorder: Code(s): F31.9 - Bipolar disorder, unspecified (3) Anxiety, generalized: Code(s): F41.1 - Generalized anxiety disorder (4) Hypothyroidism: Code(s): E03.9 - Hypothyroidism, unspecified Qualifiers: 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 for years. Continued to feel jittery during the daytime. Recently she also found to have low TSH level and we adjusted her thyroid does Patient will repeat labs again end of next month. Meanwhile I have sent a gabapentin 300 mg she may take that 1 in the morning it will help her with her anxiety. Patient was notified that if she wants me to take over her psychiatric medications it is important that she be seen every 3 months for medication refill. Patient is aware of side effects like , this medication lorazepam, has a risk of being habit forming, slowing of relfexes, dizziness, and its controlled in nature, will need 3 M visit Patient says that she need to be reminded about her thyroid blood test for next month We will book a telemedicine visit for 2 weeks to see how she is doing with the gabapentin and will remind her regarding the blood test as well. Meanwhile I would recommend that she joint [employer] that will help her socialize and will help her with her depression symptoms. Orders: Orders Complete Blood Count Auto Diff Today E03.9 - Hypothyroidism, unspecified, F31.9 - Bipolar disorder, unspecified, F33.9 - Major depressive disorder, recurrent, unspecified, F41.1 - Generalized anxiety disorder Comprehensive Met. Panel Today E03.9 - Hypothyroidism, unspecified, F31.9 - Bipolar disorder, unspecified, F33.9 - Major depressive disorder, recurrent, unspecified, F41.1 - Generalized anxiety disorder LDL Cholesterol Direct Today E03.9 - Hypothyroidism, unspecified, F31.9 - Bipolar disorder, unspecified, F33.9 - Major depressive disorder, recurrent, unspecified, F41.1 - Generalized anxiety disorder TSH reflex Free T4 Today E03.9 - Hypothyroidism, unspecified, F31.9 - Bipolar disorder, unspecified, F33.9 - Major depressive disorder, recurrent, unspecified, F41.1 - Generalized anxiety disorder Medications: New gabapentin 300 mg PO DAILY 30 caps 0RF Coding Level of Care Code Est Pt Level 4 (93136) Diagnoses Recurrent major depressive disorder, in partial remission F33.41 Active/Remission status: in partial remission Bipolar 1 disorder F31.9 Anxiety, generalized F41.1 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
[2023-07-09 12:59] VITALS: BP 110/64; PULSE 104; O2SAT 92; BMI 28.6
== END 2023-07-09 13:51 | disposition home or self-care (01) ==
PROVIDERS: PCP Internal Medicine; Visit Provider Internal Medicine
DX: F31.9 Bipolar disorder, unspecified (principal); F41.1 Generalized anxiety disorder; E03.8 Other specified hypothyroidism; E06.3 Autoimmune thyroiditis
CPT/HCPCS: 99214

== ENCOUNTER 2023-08-01 08:16 | Outpatient (AMB) | payer MEDICARE, SELFPAY ==
--- NOTE | 2023-08-01 08:35 | A.OFFPC_ITS ---
Intake Visit Reasons: 2 week fu ([phone]) Allergies anasperine Allergy (Unknown, Uncoded 09/27/22 08:59) swelling Medication List - Last Reconciled 08/01/23 by Jami Mckeon MD fluoxetine 20 mg PO gabapentin 300 mg PO DAILY levothyroxine 100 mcg PO DAILY 90 days lorazepam 1 mg PO TID PRN Tobacco use date assessed: 08/01/23 Fall risk assessment: 1 Fall in past year Last assessed Fall Risk: 08/01/23 Dental Screening Dental Screen Date: 08/01/23 Did you have a dental visit in the last 12 months?: Yes Did you have a dental problem in the last 6 months where you did not have access to dental care?: No Was dental information given to patient?: Patient has dentist HPI 2 week fu ([phone]) HPI Details Patient is 73-year-old female with history of bipolar disorder this is telemed Video f.u Patient is having bad day as her dog is not doing well She was weeping when I initially started talking to her and then she calmed down Patient was seeing a psychiatrist who is no longer practicing Patient is taking Seroquel 300 mg at night and lorazepam 1 mg t.i.d. for years. Continued to feel jittery during the daytime. I started her on gabapentin 300 mg at night she did while with this medication I am adding 1 gabapentin the morning as Hypothyroidism: Pneumonia patient to repeat labs on a just does Her psychiatric medications were filled 3 months f/u 3 months PFSH Medical History Hypothyroidism Surgical History History of back surgery Hx of cholecystectomy Family History Father Heart disease Mother Diabetes mellitus Social History Housing: Other (mobile home) Patient Tobacco Use Status: Never used Tobacco e-Cigarette/Vaping Use: Never Used service: No Current occupational status: retired Cognitive needs: No Hearing needs: No Vision needs: No Questionnaire Thrive Questionnaire Date Thrive assessed: 07/09/23 AUDIT C Alcohol Use Questionnaire (AUDIT-C) 1. How often do you have a drink containing alcohol?: Never 3. How often do you have six or more drinks on one occasion?: Never Total Score: 0 Score Reviewed/Action Taken: Yes BATSHEVA-7 AMB Questionnaire BATSHEVA-7 Date BATSHEVA - 7 assessed: 07/09/23 Source: Developed by Drs. Jason Malin, Yohana Fritz, Rei Trevino and colleagues, with an educational shonda from [employer]. Review of Systems Const Denies chills and Denies fever(s) ENT Denies epistaxis and Denies nasal discharge Card Denies chest pain Resp Denies chest congestion, Denies cough and Denies hemoptysis GI Denies diarrhea and Denies nausea Skin/Breast Denies rash Neuro Reports no additional complaints Psych Reports no additional complaints Endo Reports no additional complaints Physical exam (Primary Care) Tobacco/Smoking Status: Tobacco use Status Tobacco use date assessed 08/01/23 08/01/23 08:36 Patient Tobacco Use Status Never used Tobacco 08/01/23 08:36 e-Cigarette/Vaping Use Never Used 08/01/23 08:36 Thrive Assessment: Date of Thrive Assessment Date Thrive assessed 07/09/23 08/01/23 08:36 Telehealth Telehealth Location of provider rendering services: practice address Location of patient: address on file Patient Identification confirmed using: Name, : Yes Telehealth method: voice only Patient verbally consented to treatment: Yes Patient verbally consented to billing insurance company: Yes Patient informed of any privacy concerns related to visit: Yes Assessment and Plan Assessment & Plan (1) Major depression, recurrent: Code(s): F33.9 - Major depressive disorder, recurrent, unspecified Qualifiers: Active/Remission status: in partial remission Qualified Code(s): F33.41 - Major depressive disorder, recurrent, in partial remission (2) Bipolar 1 disorder: Code(s): F31.9 - Bipolar disorder, unspecified (3) Anxiety, generalized: Code(s): F41.1 - Generalized anxiety disorder (4) Hypothyroidism: Code(s): E03.9 - Hypothyroidism, unspecified Qualifiers: 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 for years. Continued to feel jittery during the daytime. I started her on gabapentin 300 mg at night she did while with this medication I am adding 1 gabapentin the morning as Hypothyroidism: Pneumonia patient to repeat labs on a just does Her psychiatric medications were filled 3 months f/u 3 months Medications: Changed From lorazepam 1 mg PO TID PRN To lorazepam 1 mg PO TID PRN 90 tabs 0RF anxiety 30 days From fluoxetine 20 mg PO To fluoxetine 20 mg PO BID 180 caps 0RF 90 days From gabapentin 300 mg PO DAILY 30 caps 0RF To gabapentin 300 mg PO BID 180 caps 0RF 90 days Refilled levothyroxine Take it on empty stomach and do not eat anything for 20 minutes 100 mcg PO DAILY 90 tabs 0RF 90 days Coding Level of Care Code Tele Est Pt Level 4 (21103) Diagnoses Recurrent major depressive disorder, in partial remission F33.41 Active/Remission status: in partial remission Bipolar 1 disorder F31.9 Anxiety, generalized F41.1 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
== END 2023-08-01 14:07 | disposition home or self-care (01) ==
LOC: HO.HMGC 08:16
PROVIDERS: PCP Internal Medicine; Visit Provider Internal Medicine
DX: F31.9 Bipolar disorder, unspecified (principal); F41.1 Generalized anxiety disorder; E03.8 Other specified hypothyroidism; E06.3 Autoimmune thyroiditis
CPT/HCPCS: 99443

== ENCOUNTER 2023-08-05 14:46 | Outpatient (REF) | payer MEDICARE, SELFPAY ==
[2023-08-05 15:51] LABS: MANUAL DIFF FLAG NO
[2023-08-05 16:07] LABS: Basophils Absolute Auto 0.1 X10*3/uL (0.0-0.2); Eosinophils Absolute Auto 0.2 X10*3/uL (0.0-0.4); Eosinophils Percent Auto 4.5 % (0-4); Hematocrit 40.3 % (37.0-47.0); Hemoglobin 13.4 g/dl (12.0-16.0); Imm Gran Abs Auto 0.01 X10*3/uL (0.00-0.03); Imm Gran Pct Auto 0.2 % (0.0-0.4); Lymphocytes Absolute Auto 1.7 X10*3/uL (1.2-4.9); Lymphocytes Percent Auto 32.9 % (20-40); Mean Corpuscular HGB Conc 33.3 g/dl (31.0-35.0); Mean Corpuscular Hemoglobin 30.7 pg (27.0-33.0); Mean Corpuscular Volume 92.2 fL (80.0-98.0); Mean Platelet Volume 9.6 fL (9.4-12.3); Monocytes Absolute Auto 0.5 X10*3/uL (0.1-1.2); Monocytes Percent Auto 9.1 % (2-11); Neutrophils Absolute Auto 2.7 x10*3/uL (2.0-8.3); Neutrophils Percent Auto 52.3 % (45-73); Platelet Count 296 X10*3/uL (160-400); Red Blood Count 4.37 X10*6/uL (4.20-5.50); Red Cell Distribution Width 12.6 % (11.0-16.0); White Blood Count 5.1 X10*3/uL (4.8-10.8)
[2023-08-05 16:23] LABS: Alanine Aminotransferase 10 U/L (0-31); Alkaline Phosphatase 83 U/L (39-117); Anion Gap 12 (12-20); Aspartate Amino Transferase 12 U/L (5-31); Bilirubin Total 0.5 mg/dL (0.0-1.0); Blood Urea Nitrogen 16 mg/dL (9-16); Calcium 9.6 mg/dL (8.4-10.2); Carbon Dioxide 27 mmol/L (22-29); Chloride 107 mmol/L (96-108); Estimated Glomerular Filt Rate 55; Glucose Random 90 mg/dL (60-115); Potassium 3.8 mmol/L (3.3-5.1); Sodium 142 mmol/L (135-145); Total Protein 6.8 g/dL (6.5-8.0)
[2023-08-05 16:38] LABS: TSH reflex Free T4 0.21 uIU/mL (0.32-4.0)
[2023-08-05 17:10] LABS: Free T4 (Free Thyroxine) 0.85 ng/dL (0.71-1.85)
[2023-08-07 05:58] LABS: LDL Cholesterol Direct 135 mg/dL (<100)
== END 2023-08-05 14:47 | disposition home or self-care (01) ==
LOC: HO.HMGCLDS 14:46
PROVIDERS: PCP Internal Medicine; Visit Provider Internal Medicine
DX: E03.9 Hypothyroidism, unspecified (principal); F31.9 Bipolar disorder, unspecified; F41.1 Generalized anxiety disorder
CPT/HCPCS: 36415; 80053; 83721; 84439; 84443; 85025

== ENCOUNTER 2023-10-11 12:14 | Outpatient (AMB) | payer MEDICARE, SELFPAY ==
[2023-10-11 12:18] VITALS: BP 112/66; PULSE 101; O2SAT 96; BMI 28.1
--- NOTE | 2023-10-11 12:18 | MHC.PC.OV ---
Vital Signs 10/11/23 12:18 Height 5 ft 8 in Weight 185 lb BMI 28.1 BP 112/66 Blood Pressure Location Rt brachial Position Sitting Pulse 101 H Pulse Source Pulse Oximeter Pulse Oximetry (%) 96 Oxygen Delivery Method Room Air Intake Visit Reasons: 3 month fu Allergies anasperine Allergy (Unknown, Uncoded 09/27/22 08:59) swelling Medication List - Last Reconciled 10/11/23 by Jami Mckeon MD fluoxetine 20 mg PO BID 90 days gabapentin 300 mg PO BID 90 days levothyroxine 88 mcg PO DAILY 90 days lorazepam 1 mg PO TID PRN 30 days Tobacco use date assessed: 10/11/23 Fall risk assessment: No Falls in past year Last assessed Fall Risk: 10/11/23 Dental Screening Dental Screen Date: 10/11/23 Did you have a dental visit in the last 12 months?: Yes Did you have a dental problem in the last 6 months where you did not have access to dental care?: No Was dental information given to patient?: Patient has dentist HPI 3 month fu HPI Details Patient is 73-year-old female with history of bipolar disorder Presenting with severe depression and anxiety off and on and also difficulty sleeping She is doing very well taking Seroquel 300 mg at night Lorazepam 1 mg 3 times a day Fluoxetine 20 mg 2 times a day And gabapentin 300 mg b.i.d. Home medication refill sent Patient also have hypothyroidism her TSH level was elevated in July we adjusted the medication to 88 mcg She was supposed to have labs done 6 weeks after which she forgot She will be having labs done today. Follow-up 3 months [facility] Medical History Hypothyroidism Surgical History History of back surgery Hx of cholecystectomy Family History Father Heart disease Mother Diabetes mellitus Social History Housing: Other (mobile home) Patient Tobacco Use Status: Never used Tobacco e-Cigarette/Vaping Use: Never Used service: No Current occupational status: retired Cognitive needs: No Hearing needs: No Vision needs: No Questionnaire Thrive Questionnaire Date Thrive assessed: 07/09/23 AUDIT C Alcohol Use Questionnaire (AUDIT-C) 1. How often do you have a drink containing alcohol?: Never 3. How often do you have six or more drinks on one occasion?: Never Total Score: 0 Score Reviewed/Action Taken: Yes BATSHEVA-7 AMB Questionnaire BATSHEVA-7 Date BATSHEVA - 7 assessed: 07/09/23 Source: Developed by Drs. Jason Malin, Yohana Fritz, Rei Trevino and colleagues, with an educational shonda from [employer]. Review of Systems Const Denies chills and Denies fever(s) ENT Denies epistaxis and Denies nasal discharge Card Denies chest pain Resp Denies chest congestion, Denies cough and Denies hemoptysis GI Denies diarrhea and Denies nausea Skin/Breast Denies rash Neuro Reports no additional complaints Psych Reports no additional complaints Endo Reports no additional complaints Physical exam (Primary Care) Vital Signs: Last Vital Signs Pulse 101 H 10/11/23 12:18 BP 112/66 10/11/23 12:18 Pulse Ox 96 10/11/23 12:18 Oxygen Delivery Method Room Air 10/11/23 12:18 BMI result Body Mass Index 28.1 Tobacco/Smoking Status: Tobacco use Status Tobacco use date assessed 10/11/23 10/11/23 12:21 Patient Tobacco Use Status Never used Tobacco 10/11/23 12:21 e-Cigarette/Vaping Use Never Used 10/11/23 12:21 Thrive Assessment: Date of Thrive Assessment Date Thrive assessed 07/09/23 10/11/23 12:21 Const General: cooperative, comfortable and no acute distress Orientation/consciousness: patient oriented x3 HENMT Head: Yes normocephalic Eyes General: appearance normal, both eyes and all related structures Neck Neck: Yes supple Resp Effort & Inspection: normal respiratory effort, no cough and no stridor Cardio Rhythm: regular rhythm Heart sounds: S1 normal heart sound present and S2 normal heart sound present Skin General skin exam: turgor normal Neuro General: patient oriented x3, tone normal and moves all extremities Extrem Right lower extremity: no edema Left lower extremity: no edema Assessment and Plan Assessment & Plan (1) Bipolar 1 disorder: Code(s): F31.9 - Bipolar disorder, unspecified (2) Major depression, recurrent: Code(s): F33.9 - Major depressive disorder, recurrent, unspecified Qualifiers: Active/Remission status: in partial remission Qualified Code(s): F33.41 - Major depressive disorder, recurrent, in partial remission (3) Anxiety, generalized: Code(s): F41.1 - Generalized anxiety disorder (4) Hypothyroidism: Code(s): E03.9 - Hypothyroidism, unspecified Qualifiers: 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 Home medication refill sent Patient also have hypothyroidism her TSH level was elevated in July we adjusted the medication to 88 mcg She was supposed to have labs done 6 weeks after which she forgot She will be having labs done today. Follow-up 3 months Medications: Changed From quetiapine 100 mg PO BEDTIME To quetiapine 300 mg PO BEDTIME 90 days 90 tabs 0RF Refilled fluoxetine 20 mg PO BID 90 days 180 caps 0RF gabapentin 300 mg PO BID 90 days 180 caps 0RF levothyroxine Take it on empty stomach and do not eat anything for 20 minutes 88 mcg PO DAILY 90 days 90 tabs 0RF lorazepam 1 mg PO TID 30 days PRN 90 tabs 0RF anxiety Coding Level of Care Code Est Pt Level 4 (05743) Diagnoses Bipolar 1 disorder F31.9 Recurrent major depressive disorder, in partial remission F33.41 Active/Remission status: in partial remission Anxiety, generalized F41.1 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
== END 2023-10-11 12:53 | disposition home or self-care (01) ==
PROVIDERS: PCP Internal Medicine; Visit Provider Internal Medicine
DX: F33.41 Major depressive disorder, recurrent, in partial remission (principal); F41.1 Generalized anxiety disorder; E03.8 Other specified hypothyroidism; E06.3 Autoimmune thyroiditis
CPT/HCPCS: 99214

== ENCOUNTER 2023-10-11 12:47 | Outpatient (REF) | payer MEDICARE, SELFPAY | END 2023-10-11 12:48 | disposition home or self-care (01) | LOC: HO.HMGCLDS 12:47 | PROVIDERS: PCP Internal Medicine; Visit Provider Internal Medicine | DX: E03.8 Other specified hypothyroidism (principal) | CPT/HCPCS: 36415; 84443 ==

== ENCOUNTER 2023-11-21 22:22 | Emergency (ER) | payer MEDICARE, SELFPAY ==
--- NOTE | ~2023-11-21 | CT_ITS ---
EXAMINATION: CT facial bones wo IV con, CT head/brain wo IV con, CT cervical spine wo IV con CLINICAL INFORMATION: Reason for Exam fall, L sided pain COMPARISON: CT head and cervical spine 11/21/2021 TECHNIQUE: Contiguous axial imaging was performed from the skull base to vertex without intravenous contrast. Sagittal and coronal reformatted images were obtained. Helical noncontrast CT imaging was acquired through the facial bones and source images were reviewed along with axial reconstructions and sagittal and coronal MPRs. CT images of the cervical spine were acquired without intravenous contrast. This CT examination was performed using dose optimization techniques as appropriate, variously including the following: * Automated exposure control * Adjustment of mA and/or kV according to patient size (this includes techniques or standardized protocols for targeted exams where dose is matched to indication/reason for exam; i.e. extremities or head) Use of iterative reconstruction technique DLP: 1269.64 mGy-cm mGy-cm FINDINGS: CT HEAD: Stable rounded, partially calcified extra-axial focus in the parasagittal left frontal lobe which may represent a small meningioma. There is no evidence of acute intracranial hemorrhage. No mass-effect or ventricular shift is noted. No acute, territorial loss of machado-white differentiation. The ventricles and sulci are appropriate in size and configuration for the patient's stated age. Intracranial atherosclerotic calcification is noted. No depressed calvarial fracture. Osteoma along the left parietal calvarium. CT MAXILLOFACIAL: The pterygoid plates and zygomatic arches are intact. The globes are unremarkable. The orbits including the orbital floors are intact. The mandible is intact and both temporomandibular joints are located. Left sphenoid sinus mucus retention cyst/polyp. Trace mucus retention cyst/polyp in the left maxillary sinus with additional trace scattered paranasal sinus mucosal thickening. The mastoid air cells are well-aerated. Stable osseous remodeling along the right superior lateral orbit. CT CERVICAL SPINE: No prevertebral soft tissue swelling. The craniocervical junction is intact. The cervical lordosis is preserved. There is no significant spondylolisthesis. Vertebral body heights are normal without acute compression fracture. No suspicious osseous lesion. There is multilevel cervical spondylosis. Atrophic thyroid gland. CT/CT cervical spine wo IV con IMPRESSION: No acute intracranial hemorrhage. Stable subcentimeter extra-axial lesion along the parasagittal left frontal convexity which likely represents a meningioma. No acute, displaced fracture of the facial bones or cervical spine.
--- NOTE | 2023-11-21 22:32 | ECG_ITS ---
Test Reason : FALL Blood Pressure : / mmHG Vent. Rate : 094 BPM Atrial Rate : 094 BPM P-R Int : 208 ms QRS Dur : 074 ms QT Int : 380 ms P-R-T Axes : 051 031 053 degrees QTc Int : 475 ms Normal sinus rhythm Low voltage QRS Borderline ECG No previous ECGs available Referred By: Maite Ruiz Electronically Signed By:Marcelino Pang
--- NOTE | 2023-11-21 22:33 | ED.FALL ---
HPI - Fall General Chief Complaint: Fall Stated Complaint: Fall on face, slurred speech, questioning stroke Time Seen by Provider: 11/21/23 22:26 Source: patient and EMS Mode of arrival: EMS Limitations: altered mental status History of Present Illness HPI Narrative: Patient is a 73-year-old female who presents emergency department via EMS for evaluation after a fall. Upon asking patient why she presents to the emergency department today she states ?I was watching TV, I thought a show that off, maybe I did not? she then mentions a vague story about attempting to get out of bed and suddenly falling. She can not provide me much further history than that. She states that she typically does get weak at night. She reports that she was able to crawl to a phone to call 911. Reports that she lives alone. Endorses head strike with pain to the left side of her face and left lateral neck. Denies any numbness or tingling. Denies chest pain or shortness of breath. Denies dizziness/headache. EMS had expressed concern about slurred speech, at the time my examination she is speaking clearly. Related Data Previous Rx's Medication Instructions Recorded fluoxetine 20 mg capsule 20 mg PO BID 90 days #180 caps 10/11/23 gabapentin 300 mg capsule 300 mg PO BID 90 days #180 caps 10/11/23 levothyroxine 88 mcg tablet 88 mcg PO DAILY 90 days #90 tabs 10/11/23 quetiapine 300 mg tablet 300 mg PO BEDTIME 90 days #90 tabs 10/11/23 lorazepam 1 mg tablet 1 mg PO TID PRN anxiety 30 days 11/15/23 #90 tabs Allergies Allergy/AdvReac Type Severity Reaction Status Date / Time anasperine Allergy Unknown swelling Uncoded 09/27/22 08:59 Review of Systems Review of Systems: Yes all other systems are reviewed and are negative [facility] Past Medical History Attestation statement: The following information was validated with the patient. Source: old records reviewed Medical History Hypothyroidism Surgical History History of back surgery Hx of cholecystectomy Family History Family History Father Heart disease Mother Diabetes mellitus Social History Social History Housing: Other (mobile home) Patient Tobacco Use Status: Never used Tobacco Smoked in Last 30 Days: No e-Cigarette/Vaping Use: Never Used Use of substances other than those prescribed or required for medical reasons: No Advance Directives: No Advance Directives Information Provided: No service: No Current occupational status: retired Cognitive needs: No Hearing needs: No Vision needs: No Physical Exam Vital Signs: Vital Signs: Last Vital Signs Temp 97.7 F 11/21/23 22:54 Pulse 101 H 11/22/23 00:41 Resp 15 11/22/23 00:41 BP 125/80 11/22/23 00:41 Pulse Ox 96 11/22/23 00:41 O2 Del Method Room Air 11/22/23 00:41 BMI result Body Mass Index 26.4 Appearance: Alert.?Oriented to person, place and time. No acute distress.?Normal affect. Head: Normocephalic Eyes: Pupils equal, round and reactive to light. EOMI. Conjunctiva and sclera normal? No Love sign noted. No raccoon eyes noted ENT: No septal hematoma, nares patent bilaterally. External auditory canal normal tympanic membrane pearly machado and intact bilaterally. Dentition normal, no fractured teeth. No lesions or lacerations of oropharynx. Uvula midline. Moist mucous membranes. Neck: Normal inspection.? Neck supple.??No palpable tenderness, step-off, deformities. CVS: Heart sounds normal. Normal heart rate and rhythm.? Pulses normal.?? Respiratory: No respiratory distress.? Lung sounds clear to auscultation bilaterally?? Abdomen: Soft and non-tender. Normoactive bowel sounds. ?? Skin: Skin warm and dry.? Normal skin color.? Normal skin turgor.?? Extremities: No lower extremity edema.? Neuro: Moves all extremities spontaneously. Sensation intact bilaterally. CN II-XII intact. No focal neuro deficits. NIH Stroke Scale Internal: Initial- Upon Arrival Level of Consciousness: Alert Level of Consciousness Questions: Answers both questions correctly Level of Consciousness Commands: Performs both tasks correctly Best Gaze: Normal Visual: No visual loss Facial Palsy: Normal Motor Arm (Right): No drift Motor Arm (Left): No drift Motor Leg (Right): No drift Motor Leg (Left): No drift Limb Ataxia: Absent Sensory: Normal Best Language: No aphasia Dysarthia: Normal Extinction and Inattention: No abnormality Score: 0 Course Reevaluation(s) Reevaluation #1: CBC and CMP are overall unremarkable. EKG without acute ischemic changes. COVID-19/influ[address] head cervical spine inpatient bones are without acute pathology. She still does not recall events preceding the fall, she states ?no maybe I was going to bed or something . Attempted to make contact with her primary contact, brother, left voicemail for call back, hoping to determine whether at baseline she has any memory issues. She denies any additional falls recently. Ambulatory with steady gait up and down the delvalle in the department. Pending urinalysis at this time. Plan to have patient remain in the emergency department overnight under physician observation, for case management evaluation, pending collateral information from family reguarding mentation Time: 01:23 Medical Decision Making Medical Decision Making MDM Narrative: Patient is a 73-year-old female with past medical history of hypothyroidism, anxiety, bipolar, depression who presents to the emergency department for evaluation after a fall, etiology is unclear, patient is unable to provide me a clear history of the events surrounding the fall, concern for possible syncope, seizure, mechanical fall. Will obtain CBC to evaluate for leukocytosis/ anemia, CMP and lipase to evaluate for abnormal electrolytes /abnormal renal function/ abnormal hepatic/biliary function, EKG and ischemia/arrhythmia, CT head and cervical spine to evaluate for ICH, SDH, infarct, fracture, subluxation, Chest x-ray to evaluate for consolidation/ infiltrate/ mass/ pulmonary congestion and Urinalysis, viral screening. Differential Diagnosis Differential Diagnoses: The differential diagnosis associated with the presentation includes (As noted above) Admission/Observation Consideration of admission/observation: Escalation of care including admission/observation considered (See narrative above and course narrative for further detail) Lab Data MDM Lab Attestation statement: I reviewed the patient's lab results. (See course narrative) 11/21/23 22:41 11/21/23 22:41 Labs: Lab Results 11/21/23 Range/Units 22:41 WBC 3.4 L (4.8-10.8) X10*3/uL RBC 4.22 (4.20-5.50) X10*6/uL Hgb 13.3 (12.0-16.0) g/dl Hct 39.0 (37.0-47.0) % MCV 92.4 (80.0-98.0) fL MCH 31.5 (27.0-33.0) pg MCHC 34.1 (31.0-35.0) g/dl RDW 13.2 (11.0-16.0) % Plt Count 190 D (160-400) X10*3/uL MPV 10.2 (9.4-12.3) fL Immature Gran % (Auto) 0.3 (0.0-0.4) % Neut % (Auto) 54.3 (45-73) % Lymph % (Auto) 31.2 (20-40) % [place] % (Auto) 9.9 (2-11) % Eos % (Auto) 2.6 (0-4) % Baso % (Auto) 1.7 (0-2) % Lymph # (Auto) 1.1 L (1.2-4.9) X10*3/uL [place] # (Auto) 0.3 (0.1-1.2) X10*3/uL Eos # (Auto) 0.1 (0.0-0.4) X10*3/uL Baso # (Auto) 0.1 (0.0-0.2) X10*3/uL Abs Immat Gran (auto) 0.01 (0.00-0.03) X10*3/uL Absolute Neuts (auto) 1.9 L (2.0-8.3) x10*3/uL Absolute Nucleated RBC 0.000 (0.0-0.012) X10*3/uL Nucleated RBC % (auto) 0.0 (0.0-0.2) /100WBC PT 11.8 (11.1-13.3) SEC INR 1.0 (0.9-1.1) Sodium 139 (135-145) mmol/L Potassium 3.8 (3.3-5.1) mmol/L Chloride 104 (96-108) mmol/L Carbon Dioxide 26 (22-29) mmol/L Anion Gap 13 (12-20) BUN 17 H (9-16) mg/dL Creatinine 1.10 (0.5-1.4) mg/dL Estim Creat Clear Calc 50.9 Estimated GFR 49 Random Glucose 113 (60-115) mg/dL Calcium 9.6 (8.4-10.2) mg/dL Total Bilirubin 0.5 (0.0-1.0) mg/dL AST 11 (5-31) U/L ALT 6 (0-31) U/L Alkaline Phosphatase 69 (39-117) U/L Total Protein 6.5 (6.5-8.0) g/dL Albumin 3.9 (3.5-5.0) g/dL COVID-19 (COLT) Negative (Negative) COVID-19 Clin Com See Note Influenza Type A (LISSA) Negative (Negative) Influenza Type B (LISSA) Negative (Negative) Influenza A & B Note See Note Independent Interpretation I performed an independent interpretation of an: EKG and CT Scan (No fracture, no ICH) Interpretation: Rate: 94 Rhythm:? Normal sinus rhythm [place]:? Normal Normal P waves.? Normal NASIM.?? Normal QRS complex.?? ST T wave :??No ST elevation, no ST depression The study has been interpreted contemporaneously by me. Radiology Impression Discussion of test interpretation with radiology: I have reviewed the radiologist's reading. Radiologist Impression: CT/CT head/brain wo IV con IMPRESSION: No acute intracranial hemorrhage. Stable subcentimeter extra-axial lesion along the parasagittal left frontal convexity which likely represents a meningioma. No acute, displaced fracture of the facial bones or cervical spine. Independent Historian Clinical information obtained from an independent historian. History obtained from or confirmed by: EMS External Record Review External record reviewed: Outpatient record Critical Care Time Critical Care Time Critical Care Time: Yes Total Critical Care Time: 35 Attestation: I personally attest to this critical care time spent taking care of the patient exclusive of all other billable procedures was approximately 35 minutes including initial evaluation of patient, ordering tests, x-ray interpretation, EKG interpretation, medical consultation, documentation, re-evaluation. Discharge Plan Discharge Clinical Impression: Fall Patient Disposition: Still a Patient Prescriptions: No Action lorazepam 1 mg tablet 1 mg PO TID PRN (Reason: anxiety) 30 Days Qty: 90 0RF fluoxetine 20 mg capsule 20 mg PO BID 90 Days Qty: 180 0RF gabapentin 300 mg capsule 300 mg PO BID 90 Days Qty: 180 0RF levothyroxine 88 mcg tablet 88 mcg PO DAILY 90 Days Qty: 90 0RF Rx Instructions: Take it on empty stomach and do not eat anything for 20 minutes quetiapine 300 mg tablet 300 mg PO BEDTIME 90 Days Qty: 90 0RF
[2023-11-21 22:48] LABS: MANUAL DIFF FLAG NO
[2023-11-21 22:49] VITALS: BP 138/70; BP 92/62; PULSE 90; PULSE 96; RESP 16; TEMP 36.5; O2SAT 96; O2SAT 99; BMI 26.4
[2023-11-21 22:49] LABS: Basophils Absolute Auto 0.1 X10*3/uL (0.0-0.2); Basophils Percent Auto 1.7 % (0-2); Eosinophils Absolute Auto 0.1 X10*3/uL (0.0-0.4); Eosinophils Percent Auto 2.6 % (0-4); Hemoglobin 13.3 g/dl (12.0-16.0); Imm Gran Abs Auto 0.01 X10*3/uL (0.00-0.03); Imm Gran Pct Auto 0.3 % (0.0-0.4); Lymphocytes Absolute Auto 1.1 X10*3/uL (1.2-4.9); Lymphocytes Percent Auto 31.2 % (20-40); Mean Corpuscular HGB Conc 34.1 g/dl (31.0-35.0); Mean Corpuscular Hemoglobin 31.5 pg (27.0-33.0); Mean Corpuscular Volume 92.4 fL (80.0-98.0); Mean Platelet Volume 10.2 fL (9.4-12.3); Monocytes Absolute Auto 0.3 X10*3/uL (0.1-1.2); Monocytes Percent Auto 9.9 % (2-11); Neutrophils Absolute Auto 1.9 x10*3/uL (2.0-8.3); Neutrophils Percent Auto 54.3 % (45-73); Platelet Count 190 X10*3/uL (160-400); Red Blood Count 4.22 X10*6/uL (4.20-5.50); Red Cell Distribution Width 13.2 % (11.0-16.0); White Blood Count 3.4 X10*3/uL (4.8-10.8)
[2023-11-21 22:54] VITALS: BP 138/70; PULSE 96; RESP 16; TEMP 36.5; O2SAT 96
[2023-11-21 22:55] LABS: Prothrombin Time 11.8 SEC (11.1-13.3)
--- NOTE | 2023-11-21 22:59 | MHC.EDTECH ---
This Tech assumed care of this PT upon arrival. EKG completed and handed to a provided. REd fall precaution wristband and red socks put on pt. pt connected to a collar separator
[2023-11-21 23:02] LABS: Alanine Aminotransferase 6 U/L (0-31); Albumin Level 3.9 g/dL (3.5-5.0); Alkaline Phosphatase 69 U/L (39-117); Anion Gap 13 (12-20); Aspartate Amino Transferase 11 U/L (5-31); Bilirubin Total 0.5 mg/dL (0.0-1.0); Blood Urea Nitrogen 17 mg/dL (9-16); Calcium 9.6 mg/dL (8.4-10.2); Carbon Dioxide 26 mmol/L (22-29); Chloride 104 mmol/L (96-108); Creatinine Clr Calc Pharmacy 50.9; Estimated Glomerular Filt Rate 49; Glucose Random 113 mg/dL (60-115); Potassium 3.8 mmol/L (3.3-5.1); Sodium 139 mmol/L (135-145); Total Protein 6.5 g/dL (6.5-8.0)
[2023-11-21 23:04] LABS: COVID-19 Test Negative (Negative); IDNOW Serial# 58CA691E; IDNOW Serial# 6674DD1D; Influenza A Negative (Negative); Influenza B2 Negative (Negative)
--- NOTE | 2023-11-22 00:40 | PC.NURSE ---
C Collar removed, per [employer]IST. Pt resting comfortably in bed at this time
[2023-11-22 00:41] VITALS: BP 125/80; PULSE 101; RESP 15; O2SAT 96
--- NOTE | 2023-11-22 00:52 | PC.NURSE ---
Pt ambulated with tech with no complications. Steady gait, strong balance.
[2023-11-22 06:00] VITALS: BP 120/74; PULSE 77; RESP 14; TEMP 36.3; O2SAT 100
--- NOTE | 2023-11-22 08:54 | PC.NURSE ---
Resumed care of patient, she is currently sleeping, awaiting CM for a safe dispo home at this time.
[2023-11-22 09:13] VITALS: BP 120/74; PULSE 77; O2SAT 100
[2023-11-22 09:33] LABS: Appearance Urine Clear; Color Urine Yellow; Glucose Urine UA Negative (Negative); Leukocyte Esterase Urine Moderate (2+) (Negative); Nitrite Urine Negative (Negative); PH 5.5 (5.0-9.0); UMIC TRIGGER UACC YES; Urine Blood Negative (Negative); Urine Ketones Negative (Negative); Urine Protein Negative (Neg-Trace)
[2023-11-22 09:35] LABS: Bacteria Urine None Seen (None Seen); Hyaline Casts Urine 0-2 /LPF (0-2); RBC Urine 0-2 /HPF (0-2); UACC Culture Trigger YES
[2023-11-22 09:53] VITALS: BP 109/64; PULSE 77; RESP 14; TEMP 36.6; O2SAT 95
--- NOTE | 2023-11-22 09:57 | MHC.CM.ED ---
Addendum entered by Sona Alexander 11/22/23 13:57: [facility] is having difficulty finding a billable code. Referral broadcasted in [facility]. [facility] is able to accept patient. Original Note: Received case management consult overnight. Patient came to the ER due to a fall and found to have slurred speech. Work up essentially negative. Physical therapy eval completed. Home services are recommended. Met with patient in regards to discharge planning. Patient lives alone, ambulates independently and had no services prior to coming to the hospital. PCP verified. Patient feels she can safely go home and is agreeable to referral to [facility]. Lyft will be arranged for patient to get home. Patient, Cesia RN and Patty AUGUSTINE aware. Continue to monitor for d/c needs.
== END 2023-11-22 10:33 | disposition home or self-care (01) ==
PROVIDERS: Nurse Practitioner Family; Emergency Provider Emergency Medicine; PCP Internal Medicine
DX: R51.9 Headache, unspecified (principal); M54.2 Cervicalgia; Z91.81 History of falling; R29.700 NIHSS score 0; Z11.52 Encounter for screening for COVID-19; E03.9 Hypothyroidism, unspecified; F41.9 Anxiety disorder, unspecified; F31.9 Bipolar disorder, unspecified; Z79.899 Other long term (current) drug therapy
CPT/HCPCS: 70450; 70486; 72125; 80053; 81001; 85025; 85610; 87086; 87502; 87635; 93005; 97162; 99285

== ENCOUNTER → 2023-11-21 22:32 | Outpatient (BNV) | payer MEDICARE, SELFPAY | PROVIDERS: Emergency Provider Emergency Medicine; PCP Internal Medicine; Visit Provider Internal Medicine Cardiovascular Disease | DX: R94.31 Abnormal electrocardiogram [ECG] [EKG] (principal) | CPT/HCPCS: 93010 ==

== ENCOUNTER 2024-01-08 14:26 | Outpatient (AMB) | payer MEDICARE, SELFPAY ==
--- NOTE | 2024-01-08 14:29 | MHC.PC.OV ---
Vital Signs 01/08/24 14:30 Height 5 ft 8 in Weight 162 lb BMI 24.6 BP 116/76 Blood Pressure Location Rt brachial Position Sitting Pulse 88 Pulse Source Pulse Oximeter Pulse Oximetry (%) 98 Oxygen Delivery Method Room Air Intake Visit Reasons: 6 month fu Allergies anasperine Allergy (Unknown, Uncoded 09/27/22 08:59) swelling Medication List - Last Reconciled 01/08/24 by Jami Mckeon MD fluoxetine 20 mg PO BID 90 days gabapentin 300 mg PO BID 90 days levothyroxine 88 mcg PO DAILY 90 days lorazepam 1 mg PO TID PRN 30 days quetiapine 300 mg PO BEDTIME 90 days Tobacco use date assessed: 01/08/24 Fall risk assessment: 2 + Falls in past year Last assessed Fall Risk: 01/08/24 Dental Screening Dental Screen Date: 01/08/24 Did you have a dental visit in the last 12 months?: Yes Did you have a dental problem in the last 6 months where you did not have access to dental care?: No Was dental information given to patient?: Patient has dentist HPI 6 month fu HPI Details Patient is 73-year-old female with history of bipolar disorder Patient is doing well came in today for her regular follow-up appointment Presenting with severe depression and anxiety off and on and also difficulty sleeping She is doing very well taking Seroquel 300 mg at night Lorazepam 1 mg 3 times a day Fluoxetine 20 mg 2 times a day And gabapentin 300 mg b.i.d. medication refill sent Hypothyroidism: Continue levothyroxine 88 mcg Recently she had labs done reviewed Follow-up 3 months [facility] Medical History Hypothyroidism Surgical History History of back surgery Hx of cholecystectomy Family History Father Heart disease Mother Diabetes mellitus Social History Housing: Other (mobile home) Patient Tobacco Use Status: Never used Tobacco e-Cigarette/Vaping Use: Never Used service: No Current occupational status: retired Cognitive needs: No Hearing needs: No Vision needs: No Questionnaire PHQ-9 Over the last 2 weeks, how often have you been bothered by any of the following problems? 1. Little interest or pleasure in doing things: not at all 2. Feeling down, depressed, or hopeless: not at all 3. Trouble falling or staying asleep, or sleeping too much: not at all 4. Feeling tired or having little energy: not at all 5. Poor appetite or overeating: not at all 6. Feeling bad about yourself - or that you are a failure or have let yourself or your family down: not at all 7. Trouble concentrating on things, such as reading the newspaper or watching television: not at all 8. Moving or speaking so slowly that other people could have noticed. Or the opposite - being so fidgety or restless that you have been moving around a lot more than usual: not at all 9. Thoughts that you would be better off or of hurting yourself in some way: not at all Total score: 0 Depression Screening Interpretation: Negative Depression Screening Done: Yes 13539 - PHQ-9 Billing: Yes Source: Developed by Drs. Jason Malin, Yohana Fritz, Rei Trevino and colleagues, with an educational shonda from [employer]. Thrive Questionnaire Date Thrive assessed: 01/08/24 I am a: Patient What is your living situation today?: I have a steady place to live Within the past 12 months, did the food you bought not last and you didn't have the money to get more?: Never true Within the past 12 months, did you worry whether your food would run out before you got money to buy more?: Never true Do you have trouble paying for medicines?: No Do you have trouble getting transportation to medical appointments?: No Do you have trouble paying your heating and electricity bill?: No Do you have trouble taking care of your child, family member or friend?: No Do you have trouble with day-to-day activities such as bathing, preparing meals, shopping, managing finances, etc.?: No Are you currently unemployed and looking for a job?: No Are you interested in more education?: No Please select the resources that you would like help with: None Currently or been in a relationship where the following occur: no concerns reported THRIVE Score: 0 BATSHEVA-7 AMB Questionnaire BATSHEVA-7 Date BATSHEVA - 7 assessed: 01/08/24 Feeling nervous, anxious, or on edge: 0 = Not at all Not being able to stop or control worryin = Not at all Worrying too much about different things: 0 = Not at all Trouble relaxin = Not at all Being so restless that it is hard to sit still: 0 = Not at all Becoming easily annoyed or irritable: 0 = Not at all Feeling afraid as if something awful might happen: 0 = Not at all Total BATSHEVA-7 score (0-4 normal; 5-9 mild; 10-14 moderate; 15-21 severe): 0 Source: Developed by Drs. Jason Malin, Yohana Fritz, Rei Trevino and colleagues, with an educational shonda from [employer]. BATSHEVA-7 Assessment Billing BATSHEVA-7 Assessment Tool: BATSHEVA-7 Assessment 70860 Review of Systems Const Denies chills and Denies fever(s) ENT Denies epistaxis and Denies nasal discharge Card Denies chest pain Resp Denies chest congestion, Denies cough and Denies hemoptysis GI Denies diarrhea and Denies nausea Skin/Breast Denies rash Neuro Reports no additional complaints Psych Reports no additional complaints Endo Reports no additional complaints Physical exam (Primary Care) Vital Signs: Last Vital Signs Pulse 88 01/08/24 14:30 BP 116/76 01/08/24 14:30 Pulse Ox 98 01/08/24 14:30 Oxygen Delivery Method Room Air 01/08/24 14:30 BMI result Body Mass Index 24.6 Tobacco/Smoking Status: Tobacco use Status Tobacco use date assessed 01/08/24 01/08/24 14:31 Patient Tobacco Use Status Never used Tobacco 01/08/24 14:31 e-Cigarette/Vaping Use Never Used 01/08/24 14:31 PHQ-9: PHQ-9 Score PHQ-9: Total score 0 01/08/24 14:48 Depression Screening Interpretation: Negative Thrive Assessment: Date of Thrive Assessment Date Thrive assessed 01/08/24 01/08/24 14:48 Currently or been in a relationship where the following occur: no concerns reported Const General: cooperative, comfortable and no acute distress Orientation/consciousness: patient oriented x3 HENMT Head: Yes normocephalic Eyes General: appearance normal, both eyes and all related structures Neck Neck: Yes supple Resp Effort & Inspection: normal respiratory effort, no cough and no stridor Cardio Rhythm: regular rhythm Heart sounds: S1 normal heart sound present and S2 normal heart sound present Skin General skin exam: turgor normal Neuro General: patient oriented x3, tone normal and moves all extremities Extrem Right lower extremity: no edema Left lower extremity: no edema Assessment and Plan Assessment & Plan (1) Bipolar 1 disorder: Code(s): F31.9 - Bipolar disorder, unspecified (2) Major depression, recurrent: Code(s): F33.9 - Major depressive disorder, recurrent, unspecified Qualifiers: Active/Remission status: in partial remission Qualified Code(s): F33.41 - Major depressive disorder, recurrent, in partial remission (3) Anxiety, generalized: Code(s): F41.1 - Generalized anxiety disorder (4) Hypothyroidism: Code(s): E03.9 - Hypothyroidism, unspecified Qualifiers: 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 medication refill sent Hypothyroidism: Continue levothyroxine 88 mcg Recently she had labs done reviewed Follow-up 3 months Medications: Refilled gabapentin 300 mg PO BID 180 caps 0RF 90 days levothyroxine Take it on empty stomach and do not eat anything for 20 minutes 88 mcg PO DAILY 90 tabs 0RF 90 days lorazepam 1 mg PO TID PRN 90 tabs 0RF anxiety 30 days quetiapine 300 mg PO BEDTIME 90 tabs 0RF 90 days Coding Level of Care Code Est Pt Level 3 (19899) Diagnoses Bipolar 1 disorder F31.9 Recurrent major depressive disorder, in partial remission F33.41 Active/Remission status: in partial remission Anxiety, generalized F41.1 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
[2024-01-08 14:30] VITALS: BP 116/76; PULSE 88; O2SAT 98; BMI 24.6
== END 2024-01-08 17:13 | disposition home or self-care (01) ==
PROVIDERS: PCP Internal Medicine; Visit Provider Internal Medicine
DX: F31.9 Bipolar disorder, unspecified (principal); F41.1 Generalized anxiety disorder; E03.8 Other specified hypothyroidism; E06.3 Autoimmune thyroiditis
CPT/HCPCS: 99213

== ENCOUNTER 2024-04-08 13:14 | Outpatient (AMB) | payer MEDICARE, SELFPAY ==
[2024-04-08 13:22] VITALS: BP 118/60; PULSE 102; O2SAT 96; BMI 27.3
--- NOTE | 2024-04-08 13:22 | MHC.PC.OV ---
Vital Signs 04/08/24 13:22 Height 5 ft 8 in Weight 179 lb 6 oz BMI 27.3 BP 118/60 Blood Pressure Location Rt brachial Position Sitting Pulse 102 H Pulse Source Pulse Oximeter Pulse Oximetry (%) 96 Oxygen Delivery Method Room Air Intake Visit Reasons: 3M F/u Allergies anasperine Allergy (Unknown, Uncoded 09/27/22 08:59) swelling Medication List - Last Reconciled 04/08/24 by Jami Mckeon MD fluoxetine 20 mg PO BID 90 days gabapentin 300 mg PO BID 90 days levothyroxine 88 mcg PO DAILY 90 days lorazepam 1 mg PO TID PRN 30 days quetiapine 300 mg PO BEDTIME 90 days Tobacco use date assessed: 04/08/24 Fall risk assessment: No Falls in past year Last assessed Fall Risk: 04/08/24 Dental Screening Dental Screen Date: 04/08/24 Did you have a dental visit in the last 12 months?: Yes Did you have a dental problem in the last 6 months where you did not have access to dental care?: No Was dental information given to patient?: Patient has dentist HPI 3M F/u HPI Details Patient is 73-year-old female with history of bipolar disorder Last set of labs reviewed again, new set of lab order placed to be done before next visit in 3 months Patient is doing well came in today for her regular follow-up appointment Presenting with severe depression and anxiety off and on and also difficulty sleeping She is doing very well taking Seroquel 300 mg at night Lorazepam 1 mg 3 times a day Fluoxetine 20 mg 2 times a day And gabapentin 300 mg b.i.d. medication refill sent Hypothyroidism: Continue levothyroxine 88 mcg Follow-up 3 months [facility] Medical History Hypothyroidism Surgical History History of back surgery Hx of cholecystectomy Family History Father Heart disease Mother Diabetes mellitus Social History Housing: Other (mobile home) Patient Tobacco Use Status: Never used Tobacco e-Cigarette/Vaping Use: Never Used service: No Current occupational status: retired Cognitive needs: No Hearing needs: No Vision needs: No Questionnaire Thrive Questionnaire Date Thrive assessed: 01/08/24 AUDIT C Alcohol Use Questionnaire (AUDIT-C) 1. How often do you have a drink containing alcohol?: Never 3. How often do you have six or more drinks on one occasion?: Never Total Score: 0 Score Reviewed/Action Taken: Yes BATSHEVA-7 AMB Questionnaire BATSHEVA-7 Date BATSHEVA - 7 assessed: 01/08/24 Source: Developed by Drs. Jason Malin, Yohana Fritz, Rei Trevino and colleagues, with an educational shonda from [employer]. Review of Systems Const Denies chills and Denies fever(s) ENT Denies epistaxis and Denies nasal discharge Card Denies chest pain Resp Denies chest congestion, Denies cough and Denies hemoptysis GI Denies diarrhea and Denies nausea Skin/Breast Denies rash Neuro Reports no additional complaints Psych Reports no additional complaints Endo Reports no additional complaints Physical exam (Primary Care) Vital Signs: Last Vital Signs Pulse 102 H 04/08/24 13:22 BP 118/60 04/08/24 13:22 Pulse Ox 96 04/08/24 13:22 Oxygen Delivery Method Room Air 04/08/24 13:22 BMI result Body Mass Index 27.3 Tobacco/Smoking Status: Tobacco use Status Tobacco use date assessed 04/08/24 04/08/24 13:25 Patient Tobacco Use Status Never used Tobacco 04/08/24 13:25 e-Cigarette/Vaping Use Never Used 04/08/24 13:25 Thrive Assessment: Date of Thrive Assessment Date Thrive assessed 01/08/24 04/08/24 13:25 Const General: cooperative, comfortable and no acute distress Orientation/consciousness: patient oriented x3 HENNY Head: Yes normocephalic Eyes General: appearance normal, both eyes and all related structures Neck Neck: Yes supple Resp Effort & Inspection: normal respiratory effort, no cough and no stridor Cardio Rhythm: regular rhythm Heart sounds: S1 normal heart sound present and S2 normal heart sound present Skin General skin exam: turgor normal Neuro General: patient oriented x3, tone normal and moves all extremities Extrem Right lower extremity: no edema Left lower extremity: no edema Assessment and Plan Assessment & Plan (1) Bipolar 1 disorder: Code(s): F31.9 - Bipolar disorder, unspecified (2) Major depression, recurrent: Code(s): F33.9 - Major depressive disorder, recurrent, unspecified Qualifiers: Active/Remission status: in partial remission Qualified Code(s): F33.41 - Major depressive disorder, recurrent, in partial remission (3) Anxiety, generalized: Code(s): F41.1 - Generalized anxiety disorder (4) Other specified hypothyroidism: Code(s): E03.8 - Other specified hypothyroidism Plan Patient is 73-year-old female with history of bipolar disorder Last set of labs reviewed again, new set of lab order placed to be done before next visit in 3 months Patient is doing well came in today for her regular follow-up appointment Presenting with severe depression and anxiety off and on and also difficulty sleeping She is doing very well taking Seroquel 300 mg at night Lorazepam 1 mg 3 times a day Fluoxetine 20 mg 2 times a day And gabapentin 300 mg b.i.d. medication refill sent Hypothyroidism: Continue levothyroxine 88 mcg Follow-up 3 months Orders: Orders TSH reflex Free T4 Today E03.8 - Other specified hypothyroidism, F31.9 - Bipolar disorder, unspecified, F33.41 - Major depressive disorder, recurrent, in partial remission, F41.1 - Generalized anxiety disorder Complete Blood Count Auto Diff Today E03.8 - Other specified hypothyroidism, F31.9 - Bipolar disorder, unspecified, F33.41 - Major depressive disorder, recurrent, in partial remission, F41.1 - Generalized anxiety disorder Comprehensive [place]. Panel Fast Today E03.8 - Other specified hypothyroidism, F31.9 - Bipolar disorder, unspecified, F33.41 - Major depressive disorder, recurrent, in partial remission, F41.1 - Generalized anxiety disorder Lipid Panel Today E03.8 - Other specified hypothyroidism, F31.9 - Bipolar disorder, unspecified, F33.41 - Major depressive disorder, recurrent, in partial remission, F41.1 - Generalized anxiety disorder Medications: Refilled levothyroxine Take it on empty stomach and do not eat anything for 20 minutes 88 mcg PO DAILY 90 days 90 tabs 0RF quetiapine 300 mg PO BEDTIME 90 days 90 tabs 0RF fluoxetine 20 mg PO BID 90 days 180 caps 0RF gabapentin 300 mg PO BID 90 days 180 caps 0RF lorazepam 1 mg PO TID 30 days PRN 90 tabs 1RF anxiety Coding Level of Care Code Est Pt Level 4 (54293) Complex EM visit Add On G2211 Diagnoses Bipolar 1 disorder F31.9 Recurrent major depressive disorder, in partial remission F33.41 Active/Remission status: in partial remission Anxiety, generalized F41.1 Other specified hypothyroidism E03.8
== END 2024-04-08 13:49 | disposition home or self-care (01) ==
PROVIDERS: PCP Internal Medicine; Visit Provider Internal Medicine
DX: E03.8 Other specified hypothyroidism (principal); F31.9 Bipolar disorder, unspecified; F41.1 Generalized anxiety disorder
CPT/HCPCS: 99214; G2211

== ENCOUNTER 2024-04-30 14:48 | Outpatient (REF) | payer MEDICARE, SELFPAY ==
--- NOTE | ~2024-04-30 | MM_ITS ---
EXAMINATION: MM SCREENING DIGITAL BREAST TOMOSYNTHESIS, BILATERAL CLINICAL INFORMATION: Screening. Asymptomatic. The patient has a history of ultrasound-guided biopsy in 2006 showing a right fibroadenoma located in the 12:00 position. At that time the mass was 12 mm in greatest dimension and no biopsy clip was placed. COMPARISON: Mammography: This study is compared with prior exams dating back to TECHNIQUE: Digital breast tomosynthesis is performed in both the craniocaudal and mediolateral oblique views along with computer-aided detection (CAD). Synthesized 2D images are generated from the tomosynthesis. FINDINGS: There are scattered areas of fibroglandular density (ACR BI-RADS breast composition Category b). There are no significant masses, abnormal calcifications, or other abnormalities. Bilateral, benign calcifications are present in each breast. MM/MM tomosynthesis screening BI IMPRESSION: No mammographic evidence of malignancy. ASSESSMENT: BI-RADS BI-RADS 2 - Benign Findings RECOMMENDATION: Routine annual mammography screening. 1 year F/U This examination should not preclude the clinical evaluation of a suspicious palpable abnormality. This patient's information was entered into a reminder system with a target due date for their next mammogram.
== END 2024-04-30 14:49 | disposition home or self-care (01) ==
LOC: HO.MAMMO 14:48
PROVIDERS: PCP Internal Medicine; Visit Provider Internal Medicine
DX: Z12.31 Encounter for screening mammogram for malignant neoplasm of breast (principal)
CPT/HCPCS: 77063; 77067

== ENCOUNTER → 2024-04-30 16:00 | Outpatient (BNV) | payer MEDICARE, SELFPAY | PROVIDERS: PCP Internal Medicine; Visit Provider Radiology Diagnostic Radiology | DX: Z12.31 Encounter for screening mammogram for malignant neoplasm of breast (principal) | CPT/HCPCS: 77063; 77067 ==

== ENCOUNTER 2024-07-06 07:27 | Outpatient (REF) | payer MEDICARE, SELFPAY ==
[2024-07-06 10:23] LABS: MANUAL DIFF FLAG NO
[2024-07-06 10:34] LABS: Basophils Absolute Auto 0.1 X10*3/uL (0.0-0.2); Basophils Percent Auto 1.4 % (0-2); Eosinophils Absolute Auto 0.2 X10*3/uL (0.0-0.4); Eosinophils Percent Auto 5.4 % (0-4); Hematocrit 38.6 % (37.0-47.0); Hemoglobin 12.4 g/dl (12.0-16.0); Imm Gran Abs Auto 0.01 X10*3/uL (0.00-0.03); Imm Gran Pct Auto 0.2 % (0.0-0.4); Lymphocytes Absolute Auto 1.8 X10*3/uL (1.2-4.9); Mean Corpuscular HGB Conc 32.1 g/dl (31.0-35.0); Mean Corpuscular Hemoglobin 31.2 pg (27.0-33.0); Mean Corpuscular Volume 97.2 fL (80.0-98.0); Mean Platelet Volume 9.8 fL (9.4-12.3); Monocytes Absolute Auto 0.5 X10*3/uL (0.1-1.2); Monocytes Percent Auto 11.7 % (2-11); Neutrophils Absolute Auto 1.7 x10*3/uL (2.0-8.3); Neutrophils Percent Auto 40.3 % (45-73); Platelet Count 237 X10*3/uL (160-400); Red Blood Count 3.97 X10*6/uL (4.20-5.50); Red Cell Distribution Width 13.1 % (11.0-16.0); White Blood Count 4.3 X10*3/uL (4.8-10.8)
[2024-07-06 10:58] LABS: Alanine Aminotransferase 9 U/L (0-31); Alkaline Phosphatase 89 U/L (39-117); Anion Gap 11 (12-20); Aspartate Amino Transferase 14 U/L (5-31); Bilirubin Total 0.3 mg/dL (0.0-1.0); Blood Urea Nitrogen 26 mg/dL (9-16); Calcium 9.3 mg/dL (8.4-10.2); Carbon Dioxide 26 mmol/L (22-29); Chloride 107 mmol/L (96-108); Cholesterol 229 mg/dL (<200); Estimated Glomerular Filt Rate 50; Glucose Fasting 102 mg/dL (60-99); HDL Cholesterol 57 mg/dL (>40); LDL Cholesterol Calculated 130 mg/dL (<100); Potassium 3.8 mmol/L (3.3-5.1); Sodium 140 mmol/L (135-145); Total Protein 6.9 g/dL (6.5-8.0); Triglycerides 214 mg/dL (<150)
[2024-07-06 11:20] LABS: TSH reflex Free T4 13.22 uIU/mL (0.32-4.0)
[2024-07-06 11:59] LABS: Free T4 (Free Thyroxine) 0.74 ng/dL (0.71-1.85)
== END 2024-07-06 07:28 | disposition home or self-care (01) ==
LOC: HO.HMGCLDS 07:27
PROVIDERS: PCP Internal Medicine; Visit Provider Internal Medicine
DX: F33.41 Major depressive disorder, recurrent, in partial remission (principal); E03.8 Other specified hypothyroidism
CPT/HCPCS: 36415; 80053; 80061; 84439; 84443; 85025

== ENCOUNTER 2024-07-08 14:44 | Outpatient (AMB) | payer MEDICARE, SELFPAY ==
--- NOTE | 2024-07-08 14:51 | MHC.PC.OV ---
Vital Signs 07/08/24 14:52 Height 5 ft 8 in Weight 198 lb 4 oz BMI 30.1 BP 118/64 Blood Pressure Location Rt brachial Position Sitting Pulse 100 Pulse Source Pulse Oximeter Pulse Oximetry (%) 95 Oxygen Delivery Method Room Air Intake Visit Reasons: 3M F/u Allergies anasperine Allergy (Unknown, Uncoded 09/27/22 08:59) swelling Medication List - Last Reconciled 07/08/24 by Jami Mckeon MD fluoxetine 20 mg PO BID 90 days gabapentin 300 mg PO BID 90 days levothyroxine 88 mcg PO DAILY 90 days lorazepam 1 mg PO TID PRN 30 days quetiapine 300 mg PO BEDTIME 90 days Tobacco use date assessed: 07/08/24 Fall risk assessment: No Falls in past year Last assessed Fall Risk: 07/08/24 Dental Screening Dental Screen Date: 07/08/24 Did you have a dental visit in the last 12 months?: Yes Did you have a dental problem in the last 6 months where you did not have access to dental care?: No Was dental information given to patient?: Patient has dentist HPI 3M F/u HPI Details Patient is 74-year-old female with history of bipolar disorder Labs done last month reviewed TSH level is very high Patient is on levothyroxine 88 mcg she says that she is taking it daily on empty stomach I am adjusting to dose to 100 mcg of levothyroxine She will repeat labs again in 6 weeks Patient also have nephropathy GFR is 50 we are keeping track of that Electrolytes are within normal limit Patient is doing well offer no complaints today She has severe depression and anxiety off and on and also difficulty sleeping She is doing very well taking Seroquel 300 mg at night Lorazepam 1 mg 3 times a day Fluoxetine 20 mg 2 times a day And gabapentin 300 mg b.i.d. medication refill sent Follow-up 3 months [facility]PL[facility] Medical History Hypothyroidism Surgical History History of back surgery Hx of cholecystectomy Family History Father Heart disease Mother Diabetes mellitus Social History Housing: Other (mobile home) Patient Tobacco Use Status: Never used Tobacco e-Cigarette/Vaping Use: Never Used service: No Current occupational status: retired Cognitive needs: No Hearing needs: No Vision needs: No Questionnaire Thrive Questionnaire Date Thrive assessed: 01/08/24 AUDIT C Alcohol Use Questionnaire (AUDIT-C) 1. How often do you have a drink containing alcohol?: Never 3. How often do you have six or more drinks on one occasion?: Never Total Score: 0 Score Reviewed/Action Taken: Yes BATSHEVA-7 AMB Questionnaire BATSHEVA-7 Date BATSHEVA - 7 assessed: 01/08/24 Source: Developed by Drs. Jason Malin, Yohana Fritz, Rei Trevino and colleagues, with an educational shonda from [employer]. Review of Systems Const Denies chills and Denies fever(s) ENT Denies epistaxis and Denies nasal discharge Card Denies chest pain Resp Denies chest congestion, Denies cough and Denies hemoptysis GI Denies diarrhea and Denies nausea Skin/Breast Denies rash Neuro Reports no additional complaints Psych Reports no additional complaints Endo Reports no additional complaints Physical exam (Primary Care) Vital Signs: Last Vital Signs Pulse 100 07/08/24 14:52 BP 118/64 07/08/24 14:52 Pulse Ox 95 07/08/24 14:52 Oxygen Delivery Method Room Air 07/08/24 14:52 BMI result Body Mass Index 30.1 Tobacco/Smoking Status: Tobacco use Status Tobacco use date assessed 07/08/24 07/08/24 14:54 Patient Tobacco Use Status Never used Tobacco 07/08/24 14:54 e-Cigarette/Vaping Use Never Used 07/08/24 14:54 Thrive Assessment: Date of Thrive Assessment Date Thrive assessed 01/08/24 07/08/24 14:54 Const General: cooperative, comfortable and no acute distress Orientation/consciousness: patient oriented x3 HENMT Head: Yes normocephalic Eyes General: appearance normal, both eyes and all related structures Neck Neck: Yes supple Resp Effort & Inspection: normal respiratory effort, no cough and no stridor Cardio Rhythm: regular rhythm Heart sounds: S1 normal heart sound present and S2 normal heart sound present Skin General skin exam: turgor normal Neuro General: patient oriented x3, tone normal and moves all extremities Extrem Right lower extremity: no edema Left lower extremity: no edema Results Reviewed Results Reviewed: Laboratory Tests 07/06/24 07:37 Fasting Glucose 102 H LDL Cholesterol, Calc 130 H TSH 13.22 H Coding Level of Care Code Est Pt Level 4 (59951) Complex EM visit Add On G2211 Diagnoses Other specified hypothyroidism E03.8 Bipolar 1 disorder F31.9 Anxiety, generalized F41.1 Recurrent major depressive disorder, in partial remission F33.41 Active/Remission status: in partial remission Nephropathy N28.9 Impaired fasting blood sugar R73.01 Assessment & Plan Assessment & Plan (1) Other specified hypothyroidism: Code(s): E03.8 - Other specified hypothyroidism Category: Medical (2) Bipolar 1 disorder: Code(s): F31.9 - Bipolar disorder, unspecified Category: Medical (3) Anxiety, generalized: Code(s): F41.1 - Generalized anxiety disorder Category: Medical (4) Major depression, recurrent: Code(s): F33.9 - Major depressive disorder, recurrent, unspecified Category: Medical Qualifiers: Active/Remission status: in partial remission Qualified Code(s): F33.41 - Major depressive disorder, recurrent, in partial remission (5) Nephropathy: Code(s): N28.9 - Disorder of kidney and ureter, unspecified Category: Medical (6) Impaired fasting blood sugar: Code(s): R73.01 - Impaired fasting glucose Category: Medical Plan Patient is 74-year-old female with history of bipolar disorder Labs done last month reviewed TSH level is very high Patient is on levothyroxine 88 mcg she says that she is taking it daily on empty stomach I am adjusting to dose to 100 mcg of levothyroxine She will repeat labs again in 6 weeks Patient also have nephropathy GFR is 50 we are keeping track of that Electrolytes are within normal limit Patient is doing well offer no complaints today She has severe depression and anxiety off and on and also difficulty sleeping She is doing very well taking Seroquel 300 mg at night Lorazepam 1 mg 3 times a day Fluoxetine 20 mg 2 times a day And gabapentin 300 mg b.i.d. medication refill sent Follow-up 3 months Orders: Orders TSH reflex Free T4 6 Weeks E03.8 - Other specified hypothyroidism, E06.3 - Autoimmune thyroiditis Hemoglobin A1c Today R73.01 - Impaired fasting glucose Basic Metabolic Panel Today N28.9 - Disorder of kidney and ureter, unspecified Medications: Refilled levothyroxine Take it on empty stomach and do not eat anything for 20 minutes 100 mcg PO DAILY 90 days 90 tabs 0RF fluoxetine 20 mg PO BID 90 days 180 caps 0RF gabapentin 300 mg PO BID 90 days 180 caps 0RF lorazepam 1 mg PO TID 30 days PRN 90 tabs 2RF anxiety quetiapine 300 mg PO BEDTIME 90 days 90 tabs 0RF Discontinued levothyroxine Take it on empty stomach and do not eat anything for 20 minutes Discontinued Reason: Doctor's Order 88 mcg PO DAILY 90 days 90 tabs 0RF
[2024-07-08 14:52] VITALS: BP 118/64; PULSE 100; O2SAT 95; BMI 30.1
== END 2024-07-08 15:47 | disposition home or self-care (01) ==
PROVIDERS: PCP Internal Medicine; Visit Provider Internal Medicine
DX: E03.8 Other specified hypothyroidism (principal); F31.9 Bipolar disorder, unspecified; F41.1 Generalized anxiety disorder; N28.9 Disorder of kidney and ureter, unspecified; R73.01 Impaired fasting glucose

== ENCOUNTER → 2024-07-08 14:44 | Outpatient (BNVA) | payer MEDICARE, SELFPAY | PROVIDERS: PCP Internal Medicine; Visit Provider Internal Medicine | DX: E03.8 Other specified hypothyroidism (principal); F41.1 Generalized anxiety disorder; F33.41 Major depressive disorder, recurrent, in partial remission; N28.9 Disorder of kidney and ureter, unspecified; R73.01 Impaired fasting glucose; Z79.899 Other long term (current) drug therapy | CPT/HCPCS: 99212 ==

== ENCOUNTER 2024-08-17 12:11 | Outpatient (REF) | payer MEDICARE, SELFPAY ==
[2024-08-17 13:35] LABS: Estimated Average Glucose 105 mg/dL; Hemoglobin A1C 114.1063 umol/L; Hemoglobin A1c % 5.3 % (<6.0); Total Hemoglobin (HGBA1C) 3303.6471 umol/L
[2024-08-17 13:59] LABS: Anion Gap 9 (12-20); Blood Urea Nitrogen 22 mg/dL (9-16); Calcium 8.8 mg/dL (8.4-10.2); Carbon Dioxide 26 mmol/L (22-29); Chloride 108 mmol/L (96-108); Estimated Glomerular Filt Rate 55; Glucose Random 91 mg/dL (60-115); Potassium 4.3 mmol/L (3.3-5.1); Sodium 139 mmol/L (135-145)
[2024-08-17 14:18] LABS: TSH reflex Free T4 3.36 uIU/mL (0.32-4.0)
== END 2024-08-17 12:12 | disposition home or self-care (01) ==
LOC: HO.HMGCLDS 12:11
PROVIDERS: PCP Internal Medicine; Visit Provider Internal Medicine
DX: N28.9 Disorder of kidney and ureter, unspecified (principal); R73.01 Impaired fasting glucose; E03.8 Other specified hypothyroidism; E06.3 Autoimmune thyroiditis
CPT/HCPCS: 36415; 80048; 83036; 84443

== ENCOUNTER 2024-10-21 10:41 | Outpatient (AMB) | payer MEDICARE, SELFPAY ==
[2024-10-21 10:44] VITALS: BP 118/60; PULSE 83; O2SAT 93; BMI 31.1
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
== END 2024-10-21 11:07 | disposition home or self-care (01) ==
PROVIDERS: PCP Internal Medicine; Visit Provider Internal Medicine
DX: E03.8 Other specified hypothyroidism (principal); F31.9 Bipolar disorder, unspecified; F41.1 Generalized anxiety disorder; N28.9 Disorder of kidney and ureter, unspecified; R73.01 Impaired fasting glucose

== ENCOUNTER → 2024-10-21 10:41 | Outpatient (BNVA) | payer MEDICARE, SELFPAY | PROVIDERS: PCP Internal Medicine; Visit Provider Internal Medicine | DX: F31.9 Bipolar disorder, unspecified (principal); F41.1 Generalized anxiety disorder; G89.4 Chronic pain syndrome; E03.8 Other specified hypothyroidism; N28.9 Disorder of kidney and ureter, unspecified; R73.01 Impaired fasting glucose | CPT/HCPCS: 96127; 99212 ==

== ENCOUNTER 2025-01-22 14:13 | Outpatient (AMB) | payer MEDICARE, SELFPAY ==
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
[2025-01-22 14:24] VITALS: BP 110/66; PULSE 96; O2SAT 95; BMI 30.5
== END 2025-01-22 15:03 | disposition home or self-care (01) ==
LOC: HO.HMCC 14:13
PROVIDERS: PCP Internal Medicine; Visit Provider Internal Medicine
DX: R73.01 Impaired fasting glucose (principal); F41.1 Generalized anxiety disorder; F31.9 Bipolar disorder, unspecified; E03.8 Other specified hypothyroidism; N28.9 Disorder of kidney and ureter, unspecified

== ENCOUNTER → 2025-01-22 14:13 | Outpatient (BNVA) | payer MEDICARE, SELFPAY | PROVIDERS: PCP Internal Medicine; Visit Provider Internal Medicine | DX: F33.41 Major depressive disorder, recurrent, in partial remission (principal); F41.1 Generalized anxiety disorder; E03.8 Other specified hypothyroidism; N28.9 Disorder of kidney and ureter, unspecified; R73.01 Impaired fasting glucose | CPT/HCPCS: 96127; 99212 ==

== ENCOUNTER 2025-01-23 11:09 | Outpatient (REF) | payer MEDICARE, SELFPAY ==
[2025-01-23 13:45] LABS: MANUAL DIFF FLAG NO
[2025-01-23 13:49] LABS: Basophils Absolute Auto 0.1 X10*3/uL (0.0-0.2); Basophils Percent Auto 1.4 % (0-2); Eosinophils Absolute Auto 0.2 X10*3/uL (0.0-0.4); Eosinophils Percent Auto 4.6 % (0-4); Hematocrit 39.9 % (37.0-47.0); Hemoglobin 13.4 g/dl (12.0-16.0); Imm Gran Abs Auto 0.01 X10*3/uL (0.00-0.03); Imm Gran Pct Auto 0.3 % (0.0-0.4); Lymphocytes Absolute Auto 1.1 X10*3/uL (1.2-4.9); Lymphocytes Percent Auto 29.5 % (20-40); Mean Corpuscular HGB Conc 33.6 g/dl (31.0-35.0); Mean Corpuscular Hemoglobin 31.2 pg (27.0-33.0); Mean Corpuscular Volume 92.8 fL (80.0-98.0); Mean Platelet Volume 9.6 fL (9.4-12.3); Monocytes Absolute Auto 0.4 X10*3/uL (0.1-1.2); Monocytes Percent Auto 11.1 % (2-11); Neutrophils Percent Auto 53.1 % (45-73); Platelet Count 264 X10*3/uL (160-400); Red Cell Distribution Width 13.3 % (11.0-16.0); White Blood Count 3.7 X10*3/uL (4.8-10.8)
[2025-01-23 13:59] LABS: Estimated Average Glucose 108 mg/dL; Hemoglobin A1C 117.7231 umol/L; Hemoglobin A1c % 5.4 % (<6.0); Total Hemoglobin (HGBA1C) 3327.2284 umol/L
[2025-01-23 14:10] LABS: Creatinine Urine 84.13 mg/dL; Microalbum/Creatinine Ratio Ur 9.5 ug/mg cr (<30)
[2025-01-23 14:28] LABS: Alanine Aminotransferase < 6 U/L (0-31); Anion Gap 13 (12-20); Aspartate Amino Transferase 17 U/L (5-31); Bilirubin Total 0.8 mg/dL (0.0-1.0); Blood Urea Nitrogen 17 mg/dL (9-16); Calcium 9.2 mg/dL (8.4-10.2); Carbon Dioxide 24 mmol/L (22-29); Chloride 107 mmol/L (96-108); Estimated Glomerular Filt Rate 53; Glucose Random 97 mg/dL (60-115); Sodium 140 mmol/L (135-145); TSH reflex Free T4 0.87 uIU/mL (0.32-4.0); Total Protein 6.8 g/dL (6.5-8.0)
[2025-01-23 14:48] LABS: Alkaline Phosphatase 90 U/L (39-117)
[2025-01-25 12:52] LABS: LDL Cholesterol Direct 151 mg/dL (<100)
== END 2025-01-23 11:10 | disposition home or self-care (01) ==
LOC: HO.HMGCLDS 11:09
PROVIDERS: PCP Internal Medicine; Visit Provider Internal Medicine
DX: R73.01 Impaired fasting glucose (principal); N28.9 Disorder of kidney and ureter, unspecified; F33.41 Major depressive disorder, recurrent, in partial remission; F41.1 Generalized anxiety disorder; E03.8 Other specified hypothyroidism
CPT/HCPCS: 36415; 80053; 82043; 82570; 83036; 83721; 84443; 85025

== ENCOUNTER 2025-02-10 15:05 | Outpatient (AMB) | payer MEDICARE, SELFPAY ==
--- NOTE | 2025-02-10 17:00 | MHC.OFFVISPS ---
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 My insides have a horrible feeling, they churn . Reports a long history of depression- has worked with Dr. Lilly for 36 years prior to his intermediate. Reports I don't feel I have ever reached a point with the depression where I felt relief, I cannot enjoy anything, I cannot do anything without feeling this way (describes apprehension, anxiety, fear of something going wrong). Reports no regime has been helpful. Reports she lives alone, in 2021, no living children (son age 14), one brother in [place] whom she is close with. Reports a few friends, they shop, have meals out and enjoy each others company. [place], where she describes the neighborhood as decreasing-has had 3 neighbors recently pass away so community feeling has decreased Reports sleep 12am-12pm, tends not to want to face getting up so she remains in bed most of the time, but does not sleep all of that time in bed. Appetite is intact. Pt reports food helps my feelings, it decreases the tension, but I am cutting back on sweets Denies SI,HI,AH,VH. Discussed feeling lonely, having no one to be with. Expressed interest in getting out, identified senior programs, but I would like them to be active . Is anxious to be in her home as she has fallen x 2 out of bed (states the bed if uneven) and since neighbors are not available worries what to do if she needs help. Enjoys working on adult [employer] books, collecting knick knacks as well. Well engaged today and interested in treatment. HPI Narrative: PHQ-9 [id number] Past Psychiatric History: IP: Denies hx OP: Dr. Lilly for 36 years until his intermediate Therapy: Denies and has no interest in this Denies hx of mary, paranoia, perceptual disturbances, psychotic sx Trials: Gabapentin, Prozac, Seroquel, Lorazepam Panic attacks: No Agoraphobia: No Separation anxiety disorder: No Social phobia: Yes Specific phobia: No Hypochondriasis: No Body dysmorphic disorder: No Obsessive compulsive disorder: No Generalized anxiety: Yes Post traumatic stress disorder: Yes Acute stress disorder: No Previous psychiatric history: Yes Previous inpatient psychiatric hospitalization: No Other previous psychiatric treatment programs: none History of suicidal ideation: No History of suicide attempt: No Medically hospitalized: No History of self injurious behavior: No History of violence: No Current/previous psychiatrist: Hx of work with Dr. Lilly for 36 years Current/previous therapist: None Subjective Subjective Subjective Medication Compliance: Yes Side effects from medications: No Review of Systems Medical Review of Systems: unchanged Review of Systems Review of Systems hypothyroidism Denies sx today Psychiatric: Reports as per HPI, Reports anxiety, Reports depression and Reports anhedonia Mental Status Exam Mental Status Exam Patient Appearance: Appropriate Patient Orientation: Person, Place, Time and Situation Level of Consciousness: Alert Patient Behavior: Appropriate, Talkative, Cooperative and Good Eye Contact Mood Description: Depressed and Anxious Affect Description: Anxious and Apprehensive Patient Cognition Impaired: No Ability to Follow Directions: Good Speech Pattern: Spontaneous Speech Memory Description: Intact Hallucinations: None Delusions: Not Present Thought Process: Intact and Goal Oriented Thought Content: positive for Suicidal Ideation (denies) Depressive Symptoms: Increased Anxiety, Changes in Appetite (increase), Sleeping More Than Usual and Increased Fatigue Judgement: Good Assessment and Plan Assessment & Plan (1) Anxiety and depression: Code(s): F41.9 - Anxiety disorder, unspecified; F32.A - Depression, unspecified Plan 74 yo female, history of anxiety, depression, bipolar disorder. Pt reports a long history of medication trials, currently using Fluoxetine, Gabapentin, Lorazepam, Quetiapine along with a detention treatment relationship with her psychiatrist who has retired. Today she identifies symptoms of anxiety, depression, apprehension. She would like to make some medicine changes and is interested in resources to assist her in increased social connection in her community which she believes will decrease symptoms as well. Counseling and coordination of Care Pt. Self Management counseling: Other self-help group, Exercise, Light exposure, Maintenance-social rhythm, Nutrition education and improvement, Sleep hygiene, General coping skills and Social skills training Details-Self Mgmt counseling: Pt is interested in attending active senior center activities. Pt has fallen out of bed at home x 2. She is interested in obtaining life line services if they are cost effective for her limited budget Discussed sleep hygiene, coping skills, developing social connections, mild exercise and exposure to light and her dietary goals. Medication management counseling: Effectiveness, Side effects, Dosing range and Duration Details-Med Mgmt counseling: Will begin Escitalopram 5 mg daily to address depressive, anxious, social anxiety sx with goal to switch from Fluoxetine or augment fluoxetine if initial dosing is effective. Continue Fluoxetine, Quetiapine, Lorazepam, Gabapentin Follow up appt 03/10/25. Diagnosis and Prognosis Counseling: Impact of diagnosis on life functions and Impact of family relationship Details: I spent [] minutes reviewing the record, seeing the patient and documenting in the medical record. Counseling provided to the patient/caregiver as outlined below. Addressed patient/caregiver concerns regarding current medication regime including effective adherence. Addressed patient/caregiver concerns regarding diagnosis and prognosis including accuracy of diagnosis, prognosis over time, impact of diagnosis. Addressed patient/caregiver concerns regarding impact of recent stressors. [facility] Medical History Hypothyroidism Surgical History History of back surgery Hx of cholecystectomy Family History Father Heart disease Mother Diabetes mellitus Social History Housing: Other (mobile home) Patient Tobacco Use Status: Never used Tobacco e-Cigarette/Vaping Use: Never Used service: No Current occupational status: retired Cognitive needs: No Hearing needs: No Vision needs: No Social History: Shelly was born in [place], [place]. She was raised by her grandmother since 8 weeks of age, stating my mother did not want a daughter . Reports aunt intervened as mother was starving her, so she went to live with her grandmother. Mother left pt and her two brothers, pt does not recall meeting mother but did receive a letter from mother prior to her . One brother lives in [place] and although he has lost his he has done well and is well. Pt is very proud of him. Other brother lives in [place] and has worked as a principal. She reports, he lives in the past . Mother had two more children that pt has never met, I was told she was a good mother with them. Grandmother was stable, but pt could not talk with her. Uncle was a great support and pt knew she was loved by her uncle. Reports difficulty in school- left before she finished, at age 20 and had one child, a son, who of an aneurysm at age 14. The couple , they remain in contact. Met second , states she knew him for about 1.5 months before they . They were together 36 years-he of an [place] in 2021. He had 2 children from a previous marriage who are not in contact as they live a great distance. 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 Substance History: Denies Caffeine-just started to drink coffee, has ~2 cans of diet soda daily Trauma History: Affirms Coding Level of Care Code Psych Diag Eval w/Med (13986) Diagnoses Anxiety and depression F41.9; F32.A
== END 2025-02-10 16:47 | disposition home or self-care (01) ==
LOC: HO.HOP 15:05
PROVIDERS: PCP Internal Medicine; Visit Provider Clinical Nurse Specialist Psychiatric/Mental Health, Adult
DX: F41.9 Anxiety disorder, unspecified (principal); F32.A Depression, unspecified
CPT/HCPCS: 90792

== ENCOUNTER → 2025-02-10 15:05 | Outpatient (BNVA) | payer MEDICARE, SELFPAY | PROVIDERS: PCP Internal Medicine; Visit Provider Clinical Nurse Specialist Psychiatric/Mental Health, Adult | DX: F41.9 Anxiety disorder, unspecified (principal); F32.A Depression, unspecified; Z71.89 Other specified counseling | CPT/HCPCS: 90792 ==

== ENCOUNTER 2025-03-10 15:54 | Outpatient (AMB) | payer MEDICARE, SELFPAY ==
--- NOTE | 2025-03-12 11:52 | MHC.OFFVISPS ---
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 HPI Narrative: 03/10/25 appt. Pt reports she is tolerating transition to Lexapro from Prozac. Will increase Lexapro to 10 mg, decrease Prozac to 20 mg today. Pt reports my insides are still shakey . She believes this to be more of a psychosocial issue than a medicine issue, although continues to feel a racing in her stomach when out . Identifies emptiness at home and feeling lonely. Identifies her brother and two friends as supports, But I feel as if I am not living . Reports great support from one friend who includes her in all family outings/celebrations-reports feeling very fulfilled when attending these events. Discussed her worries-states when was alive I worried about him dying Nothing helped with that. Currently worries about finding her car in the parking lot, getting lost on the way home, having an accident, getting to [facility] tomorrow to picker feeder her friend, going to the mall next week with friends. Reports a visit to [facility] and found that people were too old , not active . I just have too much emptiness . Also worries about what will happen if she becomes ill. Discussed possible interventions-pt is willing to trial therapy, close to her home. She is also willing to trial day programs, if they are active and close to home. She would prefer transportation be provided. She is not interested in longterm progams due to finances but is willing to trial what is available to help her to connect with peers. Past Psychiatric History: IP: Jaies hx OP: Dr. Lilly for 36 years until his fpc Therapy: Denies and has no interest in this Denies hx of mary, paranoia, perceptual disturbances, psychotic sx Trials: Gabapentin, Prozac, Seroquel, Lorazepam Subjective Subjective Subjective Medication Compliance: Yes Side effects from medications: No Review of Systems Medical Review of Systems: unchanged Mental Status Exam Mental Status Exam Patient Appearance: Appropriate Patient Orientation: Person, Place, Time and Situation Level of Consciousness: Alert Patient Behavior: Appropriate, Talkative, Cooperative and Good Eye Contact Mood Description: Depressed and Anxious Affect Description: Anxious and Apprehensive Patient Cognition Impaired: No Ability to Follow Directions: Good Speech Pattern: Spontaneous Speech Memory Description: Intact Hallucinations: None Delusions: Not Present Thought Process: Intact and Goal Oriented Thought Content: positive for Suicidal Ideation (denies) Depressive Symptoms: Increased Anxiety, Changes in Appetite (increase), Sleeping More Than Usual and Increased Fatigue Judgement: Good Assessment and Plan Assessment & Plan (1) Major depression, recurrent: Status: Acute Qualifiers: Active/Remission status: in partial remission Qualified Code(s): F33.41 - Major depressive disorder, recurrent, in partial remission Code(s): F33.9 - Major depressive disorder, recurrent, unspecified Plan Increase Escitalopram to 10 mg daily Decrease Fluoxetine to 20 mg daily Medications: Discontinued fluoxetine Discontinued Reason: Patient no longer taking 20 mg PO BID 90 days 180 caps 0RF escitalopram oxalate Discontinued Reason: Patient no longer taking 5 mg PO DAILY 30 days 30 tabs 0RF Counseling and coordination of Care Diagnosis and Prognosis Counseling: Impact of diagnosis on life functions Details: I spent [] minutes reviewing the record, seeing the patient and documenting in the medical record. Counseling provided to the patient/caregiver as outlined below. Addressed patient/caregiver concerns regarding current medication regime including effective adherence. Addressed patient/caregiver concerns regarding diagnosis and prognosis including accuracy of diagnosis, prognosis over time, impact of diagnosis. Addressed patient/caregiver concerns regarding impact of recent stressors. PFSH Medical History Hypothyroidism Surgical History History of back surgery Hx of cholecystectomy Family History Father Heart disease Mother Diabetes mellitus Social History Housing: Other (mobile home) Patient Tobacco Use Status: Never used Tobacco e-Cigarette/Vaping Use: Never Used service: No Current occupational status: retired Cognitive needs: No Hearing needs: No Vision needs: No Social History: Shelly was born in [place], [place]. She was raised by her grandmother since 8 weeks of age, stating my mother did not want a daughter . Reports aunt intervened as mother was starving her, so she went to live with her grandmother. Mother left pt and her two brothers, pt does not recall meeting mother but did receive a letter from mother prior to her . One brother lives in [place] and although he has lost his he has done well and is well. Pt is very proud of him. Other brother lives in [place] and has worked as a principal. She reports, he lives in the past . Mother had two more children that pt has never met, I was told she was a good mother with them. Grandmother was stable, but pt could not talk with her. Uncle was a great support and pt knew she was loved by her uncle. Reports difficulty in school- left before she finished, at age 20 and had one child, a son, who of an aneurysm at age 14. The couple , they remain in contact. Met second , states she knew him for about 1.5 months before they . They were together 36 years-he of an [place] in 2021. He had 2 children from a previous marriage who are not in contact as they live a great distance. 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 Substance History: Denies Caffeine-just started to drink coffee, has ~2 cans of diet soda daily Trauma History: Affirms Coding Level of Care Code Est Pt Level 3 (34951) Diagnoses Recurrent major depressive disorder, in partial remission F33.41 Active/Remission status: in partial remission
== END 2025-03-10 17:08 | disposition home or self-care (01) ==
LOC: HO.HOP 15:54
PROVIDERS: PCP Internal Medicine; Visit Provider Clinical Nurse Specialist Psychiatric/Mental Health, Adult
DX: F33.41 Major depressive disorder, recurrent, in partial remission (principal)
CPT/HCPCS: 99213

== ENCOUNTER → 2025-03-10 15:54 | Outpatient (BNVA) | payer MEDICARE, SELFPAY | PROVIDERS: PCP Internal Medicine; Visit Provider Clinical Nurse Specialist Psychiatric/Mental Health, Adult | DX: F33.41 Major depressive disorder, recurrent, in partial remission (principal) | CPT/HCPCS: 99212 ==

== ENCOUNTER → 2025-04-02 15:30 | Outpatient (BNVA) | payer MEDICARE, SELFPAY | PROVIDERS: PCP Internal Medicine; Visit Provider Clinical Nurse Specialist Psychiatric/Mental Health, Adult | DX: F41.1 Generalized anxiety disorder (principal); F31.9 Bipolar disorder, unspecified | CPT/HCPCS: 99212 ==

== ENCOUNTER 2025-04-15 17:25 | Outpatient (AMB) | payer MEDICARE, SELFPAY ==
--- NOTE | 2025-04-23 14:01 | MHC.OFFVISPS ---
Intake Intake Visit Reasons: f/u consultation Board Filler Required: No Allergies anasperine Allergy (Unknown, Uncoded 09/27/22 08:59) swelling Medication List - Last Reconciled 04/23/25 by Nathalie Buitrago APRN fluoxetine (Prozac) 20 mg PO BID gabapentin 300 mg PO BID 90 days levothyroxine 100 mcg PO DAILY 90 days lorazepam 1 mg PO TID PRN 4 days quetiapine 300 mg PO BEDTIME 90 days HPI- Psychiatric Chief Complaint: f/u consultation Intake Note: Shelly reports not feeling too bad today. It has been a good day. Reports she has been active with social engagements, spending time with friends, celebrating holiday with friends for the long weekend. I think this depression is not about my medicines, but it might be about me being lonely. Discussed pt looking at [facility] which she is willing to do. They meet some of pt's criteria-close to home, providing transport to and from the [place], field trips, activities. Pt will call to make an appt to tour the center, She is concerned that there may be too many people there and this may be overwhelming. Team is working with pt on referrals. She reports she plans to talk with Adriana on 04/16 to continue discussion and is considering [facility] for therapy referral. Review of medications. Escitalopram has stopped. Pt reports she is thinking of stopping Fluoxetine as well. She was encouraged not to do this as recent decrease did appear to increase some symptoms. She will consider. HPI Past Psychiatric History: IP: Denies hx OP: Dr. Lilly for 36 years until his assisted Therapy: Denies and has no interest in this Denies hx of mary, paranoia, perceptual disturbances, psychotic sx Trials: Gabapentin, Prozac, Seroquel, Lorazepam Subjective Subjective Subjective Medication Compliance: Yes Side effects from medications: No Review of Systems Medical Review of Systems: unchanged Review of Systems Review of Systems Denies Mental Status Exam Mental Status Exam Narrative: Telephone call Patient Orientation: Person, Place, Time and Situation Level of Consciousness: Alert Patient Behavior: Appropriate, Talkative and Cooperative Mood Description: Appropriate Affect Description: Appropriate Patient Cognition Impaired: No Ability to Follow Directions: Good Speech Pattern: Spontaneous Speech Memory Description: Intact Hallucinations: None Delusions: Not Present Thought Process: Intact Thought Content: positive for Intact and positive for Suicidal Ideation (denies) Depressive Symptoms: Thoughts of /Suicide (denies) Judgement: Good Assessment and Plan Assessment & Plan (1) Bipolar 1 disorder: Status: Acute Code(s): F31.9 - Bipolar disorder, unspecified (2) Anxiety, generalized: Status: Acute Code(s): F41.1 - Generalized anxiety disorder Plan Shelly identifies lonliness as a basis for depressive sx and reports she does not believe medications can help this. She has stopped Escitalopram and is considering stopping Fluoxetine, however she was encouraged not to stop as when Fluoxetine was decreased for Escitalopram trial she reported increase in symptoms. She has interest in [employer] and [facility] appt with [facility] for a trial of psychothe has encouraged her to return and try the program again on another day. She will consider. Counseling and coordination of Care Details: I spent [] minutes reviewing the record, seeing the patient and documenting in the medical record. Counseling provided to the patient/caregiver as outlined below. Addressed patient/caregiver concerns regarding current medication regime including effective adherence. Addressed patient/caregiver concerns regarding diagnosis and prognosis including accuracy of diagnosis, prognosis over time, impact of diagnosis. Addressed patient/caregiver concerns regarding impact of recent stressors. PFSH Medical History Hypothyroidism Surgical History History of back surgery Hx of cholecystectomy Family History Father Heart disease Mother Diabetes mellitus Social History Housing: Other (mobile home) Patient Tobacco Use Status: Never used Tobacco e-Cigarette/Vaping Use: Never Used service: No Current occupational status: retired Cognitive needs: No Hearing needs: No Vision needs: No Social History: Shelly was born in [place], [place]. She was raised by her grandmother since 8 weeks of age, stating my mother did not want a daughter . Reports aunt intervened as mother was starving her, so she went to live with her grandmother. Mother left pt and her two brothers, pt does not recall meeting mother but did receive a letter from mother prior to her . One brother lives in [place] and although he has lost his he has done well and is well. Pt is very proud of him. Other brother lives in [place] and has worked as a principal. She reports, he lives in the past . Mother had two more children that pt has never met, I was told she was a good mother with them. Grandmother was stable, but pt could not talk with her. Uncle was a great support and pt knew she was loved by her uncle. Reports difficulty in school- left before she finished, at age 20 and had one child, a son, who of an aneurysm at age 14. The couple , they remain in contact. Met second , states she knew him for about 1.5 months before they . They were together 36 years-he of an [place] in 2021. He had 2 children from a previous marriage who are not in contact as they live a great distance. 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 Substance History: Denies Caffeine-just started to drink coffee, has ~2 cans of diet soda daily Trauma History: Affirms Coding Level of Care Code Est Pt Level 4 (15766) Diagnoses Bipolar 1 disorder F31.9 Anxiety, generalized F41.1
== END 2025-04-15 17:25 | disposition home or self-care (01) ==
LOC: HO.HOP 17:25
PROVIDERS: PCP Internal Medicine; Visit Provider Clinical Nurse Specialist Psychiatric/Mental Health, Adult
DX: F31.9 Bipolar disorder, unspecified (principal); F41.1 Generalized anxiety disorder
CPT/HCPCS: 99214

== ENCOUNTER → 2025-04-15 17:25 | Outpatient (BNVA) | payer MEDICARE, SELFPAY | PROVIDERS: PCP Internal Medicine; Visit Provider Clinical Nurse Specialist Psychiatric/Mental Health, Adult | DX: F41.1 Generalized anxiety disorder (principal); F31.9 Bipolar disorder, unspecified | CPT/HCPCS: 99212 ==

== ENCOUNTER 2025-04-28 12:57 | Outpatient (AMB) | payer MEDICARE, SELFPAY ==
--- NOTE | 2025-04-28 13:02 | A.OFFPC_ITS ---
Vital Signs 04/28/25 13:11 Height 5 ft 8 in Weight 198 lb 2 oz BMI 30.1 BP 110/64 Blood Pressure Location Lt brachial Position Sitting Pulse 90 Pulse Source Pulse Oximeter Pulse Oximetry (%) 95 Intake Visit Reasons: 3 months f/up Allergies anasperine Allergy (Unknown, Uncoded 09/27/22 08:59) swelling Medication List - Last Reconciled 04/28/25 by Jami Mckeon MD fluoxetine (Prozac) 20 mg PO BID gabapentin 300 mg PO BID 90 days levothyroxine 100 mcg PO DAILY 90 days lorazepam 1 mg PO TID PRN 4 days quetiapine 300 mg PO BEDTIME 90 days Tobacco use date assessed: 10/21/24 Fall risk assessment: No Falls in past year Last assessed Fall Risk: 04/28/25 Dental Screening Dental Screen Date: 10/21/24 HPI 3 months f/up HPI Details Subjective - The patient is a 74-year-old female pr esenting with anxiety and a medication management query. - Reports feeling a little bit jittery. - Current medications which were discuss ed include lorazepam 1 mg three times daily for anxiety, and gabapentin 300 mg twice daily. - Medication confusion noted around quet iapine prescription, taken at bedtime, which the patient initially thought was stopped. - Progress notes include discussions abo ut fluoxetine, previously taken 2x daily, planned reduction to once daily. - No reported onset date but patient men tions being on fluoxetine for an extended period. - Reports previous directions by a provi tracy indicating fluoxetine twice daily for anxiety control. - Concerns related to lorazepam and fluo xetine use include potential anxiety increase if discontinued. Medications - Lorazepam 1 mg, three times daily for anxiety. - Quetiapine, bedtime. Initially misunde rstood as stopped but confirmed active. - Gabapentin 300 mg, twice daily (indica tion not specified directly). - Fluoxetine (Prozac) 20 mg, previously three tablets daily, awaiting adjusted instructions (anxiety). Diagnostic results - Labs reveal slightly elevated choleste rol levels, 151, preferred to keep below 130. Stress The patient experiences anxiety, described as jittery, with stress management not directly explored. However, reliance on medications such as lorazepam suggests medication-assisted coping mechanisms. Past Psychiatric History The patient has a history of anxiety, managed with lorazepam, fluoxetine, and previously mentioned involvement with a nurse psychiatrist. Throughout the course of treatment, medication adjustments have been made. Although the patient currently seems stable apart from the reported jittery feeling, Counseling I explained the role of fluoxetine in managing anxiety and advised continuation to prevent anxiety exacerbation, emphasizing the importance of adhering to the twice-daily prescription. Patient Instructions - Continue taking lorazepam 1 mg, three times a day. - Continue taking gabapentin 300 mg, twi ce daily. - Continue quetiapine once daily at bedt chely. - Continue fluoxetine as per prior instr uctions, consult if altering dosage. - Monitor diet due to slightly elevated cholesterol. - Follow up in three months. Review of Systems - General: No fever no chills - Neurological: No headaches no dizzine ss - Ear nose throat: No sore throat no he aring difficulty no ear pain - Cardiovascular : No syncope, no chest pain, no palpitations - Gastrointestinal: No nausea vomiting or diarrhea - Endocrine: No polyuria polydipsia no heat intolerance - Genitourinary: No dysuria , no blood in urine Physical Exam General: No acute distress HEENT: No acute findings Neck: Supple Respiratory system: Able to talk in full sentences, no audible wheeze Cardiovascular: S1-S2 regular in rate and rhythm Gastrointestinal: bowel sounds positive no pain Extremities: no new findings 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 x3 motor sensory intact Skin: Normal turgor psychiatry: Answers appropriately, makes eye contact, reports feeling jittery PFSH Medical History Hypothyroidism Surgical History History of back surgery Hx of cholecystectomy Family History Father Heart disease Mother Diabetes mellitus Social History Housing: Other (mobile home) Patient Tobacco Use Status: Never used Tobacco e-Cigarette/Vaping Use: Never Used service: No Current occupational status: retired Cognitive needs: No Hearing needs: No Vision needs: No Questionnaire Thrive Questionnaire Date Thrive assessed: 10/21/24 BATSHEVA-7 AMB Questionnaire BATSHEVA-7 Date BATSHEVA - 7 assessed: 01/22/25 Source: Developed by Drs. Jason Malin, Yohana Fritz, Rei Trevino and colleagues, with an educational shonda from [employer]. Physical exam (Primary Care) Vital Signs: Last Vital Signs Pulse 90 04/28/25 13:11 BP 110/64 04/28/25 13:11 Pulse Ox 95 04/28/25 13:11 BMI result Body Mass Index 30.1 Tobacco/Smoking Status: Tobacco use Status Tobacco use date assessed 10/21/24 04/28/25 13:02 Patient Tobacco Use Status Never used Tobacco 04/28/25 13:02 e-Cigarette/Vaping Use Never Used 04/28/25 13:02 Thrive Assessment: Date of Thrive Assessment Date Thrive assessed 10/21/24 04/28/25 13:02 Coding Level of Care Code Est Pt Level 4 (68469) Complex EM visit Add On G2211 Diagnoses Recurrent major depressive disorder, in partial remission F33.41 Active/Remission status: in partial remission Anxiety, generalized F41.1 Bipolar 1 disorder F31.9 Other specified hypothyroidism E03.8 Assessment & Plan Assessment & Plan (1) Major depression, recurrent: Code(s): F33.9 - Major depressive disorder, recurrent, unspecified Category: Medical Qualifiers: Active/Remission status: in partial remission Qualified Code(s): F33.41 - Major depressive disorder, recurrent, in partial remission (2) Anxiety, generalized: Code(s): F41.1 - Generalized anxiety disorder Category: Medical (3) Bipolar 1 disorder: Code(s): F31.9 - Bipolar disorder, unspecified Category: Medical (4) Other specified hypothyroidism: Code(s): E03.8 - Other specified hypothyroidism Category: Medical Plan Subjective - The patient is a 74-year-old female presenting with anxiety and a medication management query. - Reports feeling a little bit jittery. - Current medications which were discussed include lorazepam 1 mg three times daily for anxiety, and gabapentin 300 mg twice daily. - Medication confusion noted around quetiapine prescription, taken at bedtime, which the patient initially thought was stopped. - Progress notes include discussions about fluoxetine, previously taken 2x daily, planned reduction to once daily. - No reported onset date but patient mentions being on fluoxetine for an extende d period. - Reports previous directions by a provider indicating fluoxetine twice daily for anxiety control. - Concerns related to lorazepam and fluoxetine use include potential anxiety increase if discontinued. Medications - Lorazepam 1 mg, three times daily for anxiety. - Quetiapine, bedtime. Initially misunderstood as stopped but confirmed active. - Gabapentin 300 mg, twice daily (indication not specified directly). - Fluoxetine (Prozac) 20 mg, previously three tablets daily, awaiting adjusted instructions (anxiety). Diagnostic results - Labs reveal slightly elevated cholesterol levels, 151, preferred to keep below 130. Past Psychiatric History The patient has a history of anxiety, managed with lorazepam, fluoxetine, and previously mentioned involvement with a nurse psychiatrist. Throughout the course of treatment, medication adjustments have been made. Although the patient currently seems stable apart from the reported jittery feeling, Counseling I explained the role of fluoxetine in managing anxiety and advised continuation to prevent anxiety exacerbation, emphasizing the importance of adhering to the twice-daily prescription. Patient Instructions - Continue taking lorazepam 1 mg, three times a day. - Continue taking gabapentin 300 mg, twice daily. - Continue quetiapine once daily at bedtime. - Continue fluoxetine as per prior instructions, consult if altering dosage. - Monitor diet due to slightly elevated cholesterol. - Follow up in three months.
[2025-04-28 13:11] VITALS: BP 110/64; PULSE 90; O2SAT 95; BMI 30.1
== END 2025-04-28 13:43 | disposition home or self-care (01) ==
LOC: HO.HMCC 12:57
PROVIDERS: PCP Internal Medicine; Visit Provider Internal Medicine
DX: F41.1 Generalized anxiety disorder (principal); F31.9 Bipolar disorder, unspecified; E03.8 Other specified hypothyroidism

== ENCOUNTER → 2025-04-28 12:57 | Outpatient (BNVA) | payer MEDICARE, SELFPAY | PROVIDERS: PCP Internal Medicine; Visit Provider Internal Medicine | DX: F33.41 Major depressive disorder, recurrent, in partial remission (principal); F41.1 Generalized anxiety disorder; E03.8 Other specified hypothyroidism | CPT/HCPCS: 99212 ==

== ENCOUNTER 2025-05-18 11:45 | Outpatient (AMB) | payer MEDICARE, SELFPAY ==
--- NOTE | 2025-05-18 11:55 | A.OFFPC_ITS ---
Vital Signs 05/18/25 11:56 Height 5 ft 8 in Weight 198 lb BMI 30.1 BP 118/70 Blood Pressure Location Lt brachial Position Sitting Respiration 16 Pulse 82 Pulse Source Pulse Oximeter Temp 97.5 F Temp Source Oral Pulse Oximetry (%) 95 Oxygen Delivery Method Room Air Intake Visit Reasons: med management Allergies anasperine Allergy (Unknown, Uncoded 05/18/25 11:59) swelling Medication List - Last Reconciled 05/18/25 by Jami Mckeon MD fluoxetine (Prozac) 20 mg PO BID gabapentin 300 mg PO BID 90 days levothyroxine 100 mcg PO DAILY 90 days lorazepam 1 mg PO TID PRN 4 days quetiapine 300 mg PO BEDTIME 90 days Tobacco use date assessed: 05/18/25 Fall risk assessment: No Falls in past year Last assessed Fall Risk: 05/18/25 Dental Screening Dental Screen Date: 05/18/25 Did you have a dental visit in the last 12 months?: Yes Did you have a dental problem in the last 6 months where you did not have access to dental care?: No Was dental information given to patient?: Patient has dentist HPI med management HPI Details Chief Complaint The patient reports severe anxiety and racing thoughts. History of Present Illness The patient is a 75-year-old female presenting with anxiety. Anxiety: - The patient describes a significant in crease in anxiety symptoms, including racing thoughts and a constant state of shakiness. - She reports difficulty in performing d aily activities and requires caution whi le walking due to her anxious state. - The anxiety appears to exacerbate with out clear alleviating factors reported. Medical History: - Anxiety - Hypothyroidism Medications: - Fluoxetine, twice daily, for anxiety - Gabapentin 300 mg, twice daily, for an xiety - Levothyroxine 100 mcg, for hypothyroid ism Problem List - Generalized Anxiety Disorder - Hypothyroidism - difficulty sleeping at night - obesity Patient Instructions - Take the new medication, buspirone, as prescribed: one tablet every eight hours. - Continue all other current medications as currently prescribed. - Expect a follow-up phone call in three weeks to assess progress. Review of Systems - General: No fever no chills - Neurological: No headaches no dizziness - Ear nose throat: No sore throat no hearing difficulty no ear pain - Cardiovascular: No syncope, no chest pain, no palpitations - Gastrointestinal: No nausea vomiting or diarrhea - Endocrine: No polyuria polydipsia no heat intolerance - Genitourinary: No dysuria , no blood in urine Physical Exam - General: No acute distress - HEENT: No acute findings - Neck: Supple - Respiratory system: Able to talk in f ull sentences, no audible wheeze - Cardiovascular: S1-S2 regular in rate and rhythm - Gastrointestinal: No pain - Extremities: No new findings - 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 motor se nsory intact - Skin: Normal turgor PFSH Medical History Hypothyroidism Surgical History History of back surgery Hx of cholecystectomy Family History Father Heart disease Mother Diabetes mellitus Social History Housing: Other (mobile home) Patient Tobacco Use Status: Never used Tobacco e-Cigarette/Vaping Use: Never Used service: No Current occupational status: retired Cognitive needs: No Hearing needs: No Vision needs: No Questionnaire Thrive Questionnaire Date Thrive assessed: 10/21/24 BATSHEVA-7 AMB Questionnaire BATSHEVA-7 Date BATSHEVA - 7 assessed: 01/22/25 Source: Developed by Drs. Jason Malin, Yohana Fritz, Rei Trevino and colleagues, with an educational shonda from [employer]. Physical exam (Primary Care) Vital Signs: Last Vital Signs Temp 97.5 F 05/18/25 11:56 Pulse 82 05/18/25 11:56 Resp 16 05/18/25 11:56 BP 118/70 05/18/25 11:56 Pulse Ox 95 05/18/25 11:56 Oxygen Delivery Method Room Air 05/18/25 11:56 BMI result Body Mass Index 30.1 Tobacco/Smoking Status: Tobacco use Status Tobacco use date assessed 05/18/25 05/18/25 12:00 Patient Tobacco Use Status Never used Tobacco 05/18/25 12:00 e-Cigarette/Vaping Use Never Used 05/18/25 12:00 Thrive Assessment: Date of Thrive Assessment Date Thrive assessed 10/21/24 05/18/25 12:00 Coding Level of Care Code Est Pt Level 4 (16674) Complex EM visit Add On G2211 Diagnoses Recurrent major depressive disorder, in partial remission F33.41 Active/Remission status: in partial remission Anxiety, generalized F41.1 Bipolar 1 disorder F31.9 Other specified hypothyroidism E03.8 Assessment & Plan Assessment & Plan (1) Major depression, recurrent: Code(s): F33.9 - Major depressive disorder, recurrent, unspecified Category: Medical Qualifiers: Active/Remission status: in partial remission Qualified Code(s): F33.41 - Major depressive disorder, recurrent, in partial remission (2) Anxiety, generalized: Code(s): F41.1 - Generalized anxiety disorder Category: Medical (3) Bipolar 1 disorder: Code(s): F31.9 - Bipolar disorder, unspecified Category: Medical (4) Other specified hypothyroidism: Code(s): E03.8 - Other specified hypothyroidism Category: Medical Plan Chief Complaint The patient reports severe anxiety and racing thoughts. History of Present Illness The patient is a 75-year-old female presenting with anxiety. Patient has a history of bipolar disorder Anxiety: - The patient describes a significant increase in anxiety symptoms, including racing thoughts and a constant state of shakiness. - She reports difficulty in performing daily activities and requires caution while walking due to her anxious state. - The anxiety appears to exacerbate without clear alleviating factors reported. Medical History: - Anxiety - Hypothyroidism Medications: - Fluoxetine, twice daily, for anxiety - Gabapentin 300 mg, twice daily, for anxiety - Levothyroxine 100 mcg, for hypothyroidism Problem List - Generalized Anxiety Disorder - Hypothyroidism - difficulty sleeping at night - obesity - bipolar disorder Patient Instructions - Take the new medication, buspirone, as prescribed: one tablet every eight hours. - Continue all other current medications as currently prescribed. - Expect a follow-up phone call in three weeks to assess progress. Medications: New buspirone 10 mg PO TID 90 tabs 0RF 30 days Refilled fluoxetine (Prozac) 20 mg PO BID 60 caps 0RF
[2025-05-18 11:56] VITALS: BP 118/70; PULSE 82; RESP 16; TEMP 36.4; O2SAT 95; BMI 30.1
== END 2025-05-18 12:50 | disposition home or self-care (01) ==
LOC: HO.HMCC 11:46
PROVIDERS: PCP Internal Medicine; Visit Provider Internal Medicine
DX: F41.1 Generalized anxiety disorder (principal); F31.9 Bipolar disorder, unspecified; E03.8 Other specified hypothyroidism

== ENCOUNTER → 2025-05-18 11:45 | Outpatient (BNVA) | payer MEDICARE, SELFPAY | PROVIDERS: PCP Internal Medicine; Visit Provider Internal Medicine | DX: F33.41 Major depressive disorder, recurrent, in partial remission (principal); F41.1 Generalized anxiety disorder; E03.8 Other specified hypothyroidism | CPT/HCPCS: 99212 ==

== ENCOUNTER 2025-05-30 15:13 | Emergency (ER) | payer MEDICARE, SELFPAY ==
--- NOTE | ~2025-05-30 | CT_ITS ---
CLINICAL HISTORY: severe diarrhea, lower abdominal tendernes CT abdomen and pelvis with contrast Comparison: None provided Findings: Small hiatal hernia. Diffuse esophageal mural thickening, nonspecific. Atelectasis. Hepatomegaly with steatosis. Thickening of the adrenal glands, nonspecific. Bilateral hypodense renal cysts. Mild right-sided hydronephrosis without obstructive calculus. Fluid-filled bowel. No bowel obstruction. Fat containing umbilical hernia. Normal appendix. Scattered colonic diverticulosis without diverticulitis or colitis. Circumferential bladder wall thickening. Osteopenia with diffuse multilevel spondylosis. Multilevel Schmorl's nodes. Diffuse atheromatous plaque disease throughout the aorta and branch vessels, without aneurysmal dilatation. Postcholecystectomy. IMPRESSION: 1. Mild right-sided hydronephrosis without obstructive calculus. 2. Circumferential bladder wall thickening may be related to degree of underdistention or mild cystitis. This document has been electronically signed by: Matt Vernon MD on 05/30/2025 19:34:34
[2025-05-30 15:25] VITALS: BP 130/70; PULSE 85; RESP 18; TEMP 36.3; O2SAT 97; BMI 28.8
--- NOTE | 2025-05-30 15:25 | ED_ITS ---
HPI - General Adult General Chief complaint: General Medical Stated complaint: abd pain, vomit, diarrhea Time Seen by Provider: 05/30/25 16:57 History of Present Illness ED Provider: Robson Garcia MD HPI narrative: 75-year-old female who reports lower abdominal discomfort and diarrhea with urgency loose stool passing in his past several days. No recent sick contacts travel or antibiotics no prior C diff. points to the suprapubic region region but denies dysuria or flank pain Related Data Previous Rx's ?Medication ?Instructions ?Recorded gabapentin 300 mg capsule 300 mg PO BID 90 days #180 c aps 03/10/25 lorazepam 1 mg tablet 1 mg PO TID PRN anxiety 4 da ys #12 03/10/25 tabs quetiapine 300 mg tablet 300 mg PO BEDTIME 90 days #9 0 tabs 03/10/25 levothyroxine 100 mcg tablet 100 mcg PO DAILY 90 days #90 tabs 03/30/25 buspirone 10 mg tablet 10 mg PO TID 30 days #90 tab s 05/18/25 fluoxetine 20 mg capsule (Prozac) 20 mg PO BID #60 cap s 05/18/25 dicyclomine 20 mg tablet 20 mg PO BID PRN abdominal p ain 05/30/25 #10 tabs Allergies Allergy/AdvReac Type Severity Reaction Status Date / Time anasperine Allergy Unknown swelling Uncoded 05/30/25 15:28 PMFSH Past Medical History Medical History Hypothyroidism Surgical History History of back surgery Hx of cholecystectomy Family History Family History Father Heart disease Mother Diabetes mellitus Social History Social History Housing: Other (mobile home) Patient Tobacco Use Status: Never used Tobacco Smoked in Last 30 Days: No e-Cigarette/Vaping Use: Never Used Use of substances other than those prescribed or required for medical reasons: No Advance Directives: No Advance Directives Information Provided: Yes service: No Current occupational status: retired Cognitive needs: No Hearing needs: No Vision needs: No Physical Exam ED Exam Exam: EXAM: Gen: Alert, awake, well appearing, well hydrated. Head: Atraumatic Eyes: Anicteric, Normal conjunctiva. ENT: Moist mucosa, no pallor. ? Neck: Supple. Skin: ?No observable rash or bruising on exposed or examined skin Respiratory: Breathing comfortably, No distress.Clear to auscultation bilaterally, symmetric chest expansion, No wheeze, rales, ronchi. Cardiovascular: Regular rate and rhythm. No murmurs or rub. Well perfused periphery, warm extremities. No edema. ? Abdominal: Mild tenderness across the lower abdomen, obese. No visible or palpable or hernia or mass Soft, no objective distension. No palpable masses or obvious organomegaly. ?No guarding, no rebound tenderness or other peritoneal findings. : No flank tenderness. Neuro: Alert. Gross movement of all extremities intact. ? Psych: Calm. Cooperative. MSK: No grossly visible deformity. Vital signs: See flowsheet Vital Signs: Vital Signs - 24 hr 05/30/25 15:25 05/30/25 18:43 05/30/25 20:25 Temperature 97.3 F 98.2 F 98.2 F Pulse Rate 85 96 96 Respiratory Rate 18 16 16 Blood Pressure 130/70 150/81 H 150/81 H Pulse Oximetry 97 99 99 Oxygen Delivery Method Room Air Room Air Room Air BMI result Body Mass Index 28.8 Course Course Course Narrative: RME, this is a rapid medical exam performed by Julio C Cordova please refer to primary provider for complete H&P- 75-year-old female presents for evaluation abdominal pain, nausea vomiting and diarrhea. Denies any recent travel outside [place], in any antibiotics recently. Plan for labs, urinalysis and stool studies. Reevaluation(s) Reevaluation #1: I reexamined the patient after the CT results we discussed the results she was reassured by this. Patient did not have any urinalysis findings, fever dysuria or other clinical suggestion of UTI despite suggestion of possible bladder wall thickening. Unclear cause or relevance of mild hydronephrosis seen in the right side which in my interpretation is very very mild and of unlikely clinical significance this can be followed up as outpatient by her primary provider. Medications Administered Discontinued Medications Generic Name Dose Route Start Last Admin Trade Name Freq PRN Reason Stop Dose Admin Dicyclomine HCl 20 mg 05/30/25 17:49 05/30/25 18:03 Dicyclomine Hcl 10 Mg Capsule PO 05/30/25 17:50 20 mg ONCE ONE Administration Lactated Ringer's 1,000 mls @ 999 mls/hr 05/30/25 18:00 05/30/25 19:31 Lr IV 05/30/25 19:00 Infused .Q1H1M ELLIOTT Infusion Iohexol 100 ml 05/30/25 18:55 05/30/25 19:03 Iohexol 350 Mg/Ml 100 Ml Infus..Btl IV 05/30/25 18:56 85 ml ONCE ONE Administration Loperamide HCl 2 mg 05/30/25 17:49 05/30/25 18:03 Loperamide Hcl 2 Mg Capsule PO 05/30/25 17:50 2 mg ONCE ONE Administration Ondansetron HCl 4 mg 05/30/25 17:49 05/30/25 18:03 Ondansetron Odt 4 Mg Tab.Rapdis TRANSLINGU 05/30/25 17:50 4 mg ONCE ONE Administration Medical Decision Making Medical Decision Making MDM Narrative: Medical Decision Making: This is a 75-year-old female with a history of cholecystectomy with lower abdominal pain and diarrhea with frequency. No recent antibiotics, travel, unusual foods or sick contacts. Abdomen minimally tender in the lower abdomen ski CT scan does not show acute pathology though there is mild hydronephrosis and perhaps mild bladder wall thickening. There was no urinalysis suggestion of UTI or she has no kidney stone history unclear the clinical level relevance of mild hydronephrosis right side. Preliminary Favored Differential Diagnosis: UTI, colitis, diverticulitis, infectious, inflammatory or food-borne colitis among additional considered etiologies Testing Interpreted Independently: ?See below for details Radiology or Lab testing Results Reviewed: ?See below for details Consults: ?See below for details Independent Historians/External Chart Reviews: ?See below for details Social Determinants of Health Impacting MDM/Planning: ?See below for details Differential Diagnosis Differential Diagnoses: The differential diagnosis associated with the presentation includes Preliminary Favored Differential Diagnosis: UTI, colitis, diverticulitis, infectious, inflammatory or food-borne colitis among additional considered etiologies Lab Data [facility] Lab Attestation statement: I reviewed the patient's lab results. 05/30/25 15:50 05/30/25 15:50 Labs: Lab Results 08/24/25 08/24/25 Range/Units 15:50 19:22 WBC 10.1 (4.8-10.8) X10*3/uL RBC 4.52 (4.20-5.50) X10*6/uL Hgb 13.9 (12.0-16.0) g/dl Hct 39.4 (37.0-47.0) % MCV 87.2 (80.0-98.0) fL MCH 30.8 (27.0-33.0) pg MCHC 35.3 H (31.0-35.0) g/dl RDW 13.1 (11.0-16.0) % Plt Count 317 (160-400) X10*3/uL MPV 9.2 L (9.4-12.3) fL Immature Gran % (Auto) 0.3 (0.0-0.4) % Neut % (Auto) 77.0 H (45-73) % Lymph % (Auto) 12.7 L (20-40) % [place] % (Auto) 9.3 (2-11) % Eos % (Auto) 0.2 (0-4) % Baso % (Auto) 0.5 (0-2) % Lymph # (Auto) 1.3 (1.2-4.9) X10*3/uL [place] # (Auto) 0.9 (0.1-1.2) X10*3/uL Eos # (Auto) 0.0 (0.0-0.4) X10*3/uL Baso # (Auto) 0.1 (0.0-0.2) X10*3/uL Abs Immat Gran (auto) 0.03 (0.00-0.03) X10*3/uL Absolute Neuts (auto) 7.8 (2.0-8.3) x10*3/uL Absolute Nucleated RBC 0.000 (0.0-0.012) X10*3/uL Nucleated RBC % (auto) 0.0 (0.0-0.2) /100WBC Sodium 140 (135-145) mmol/L Potassium 3.3 (3.3-5.1) mmol/L Chloride 104 (96-108) mmol/L Carbon Dioxide 24 (22-29) mmol/L Anion Gap 15 (12-20) BUN 17 H (9-16) mg/dL Creatinine 1.03 (0.5-1.4) mg/dL Estim Creat Clear Calc 53.1 Estimated GFR 52 Random Glucose 107 (60-115) mg/dL Calcium 9.8 D (8.4-10.2) mg/dL Total Bilirubin 1.0 (0.0-1.0) mg/dL AST 31 (5-31) U/L ALT 16 (0-31) U/L Alkaline Phosphatase 95 (39-117) U/L Total Protein 7.5 (6.5-8.0) g/dL Albumin 4.8 (3.5-5.0) g/dL Lipase 13 (8-78) U/L Urine Color Yellow Urine Appearance Clear Urine pH 6.0 (5.0-9.0) Ur Specific [place] 1.025 (1.005-1.025) Urine Protein Negative (Neg-Trace) mg/dL Urine Glucose (UA) Negative (Negative) mg/dL Urine Ketones 40 (Negative) mg/dL Urine Blood Negative (Negative) Urine Nitrite Negative (Negative) Ur Leukocyte Esterase Small (1+) H (Negative) Urine RBC 0-2 (0-2) /HPF Urine WBC 0-5 (0-5) /HPF Ur Squamous Epith Cells 3-5 (0-2) /HPF Urine Bacteria None Seen (None Seen) Hyaline Casts 11-20 (0-2) /LPF Radiology Impression Discussion of test interpretation with radiology: I have reviewed the radiologist's reading. Radiologist Impression: No acute findings on CT Discharge Plan Discharge Clinical Impression: Diarrhea, Hydronephrosis Patient Disposition: Home, Self-Care Instructions: Acute Diarrhea (ED) Additional Instructions: _ DISCHARGE DIAGNOSES: Diarrhea and abdominal pain of unclear cause HISTORY OF PRESENTATION: Diarrhea and abdominal pain and EMERGENCY DEPARTMENT COURSE,TESTS, TREATMENTS: While in the ED today [04] DISCHARGE MEDICATIONS: ?[We have made no changes to your regular medication regimen] we have added medicine for abdominal spasms FOLLOW-UP: ?Call your primary or general physician soon as possible to discuss your symptoms, your ED visit and to discuss follow up plans Call your primary doctor INSTRUCTIONS ?& RETURN PRECAUTIONS: If any symptoms change first call your primary physician, if it is after-hours your primary doctors office should have a provider director digital communications you can speak with. If the symptoms are severe or very concerning to you then call 911 or return to the ED. Robson Garcia MD Emergency Physician [facility] Prescriptions: New dicyclomine 20 mg tablet 20 mg PO BID PRN (Reason: abdominal pain) Qty: 10 0RF No Action gabapentin 300 mg capsule 300 mg PO BID 90 Days Qty: 180 0RF lorazepam 1 mg tablet 1 mg PO TID PRN (Reason: anxiety) 4 Days Qty: 12 0RF Rx Instructions: Contact your psychiatrist for further refills quetiapine 300 mg tablet 300 mg PO BEDTIME 90 Days Qty: 90 0RF levothyroxine 100 mcg tablet 100 mcg PO DAILY 90 Days Qty: 90 0RF Rx Instructions: Take it on empty stomach and do not eat anything for 20 minutes fluoxetine [Prozac] 20 mg capsule 20 mg PO BID Qty: 60 0RF buspirone 10 mg tablet 10 mg PO TID 30 Days Qty: 90 0RF Interventions: ED Discharge Assessment Last Done: 05/30/25 20:25 Discharge Date/Time: 05/30/25 20:25 Print Language: Mosotho
[2025-05-30 15:59] LABS: MANUAL DIFF FLAG NO
[2025-05-30 16:01] LABS: Hematocrit 39.4 % (37.0-47.0); Hemoglobin 13.9 g/dl (12.0-16.0); Imm Gran Abs Auto 0.03 X10*3/uL (0.00-0.03); Imm Gran Pct Auto 0.3 % (0.0-0.4); Lymphocytes Absolute Auto 1.3 X10*3/uL (1.2-4.9); Mean Corpuscular HGB Conc 35.3 g/dl (31.0-35.0); Mean Corpuscular Hemoglobin 30.8 pg (27.0-33.0); Mean Corpuscular Volume 87.2 fL (80.0-98.0); NRBC Abs Auto 0.000 X10*3/uL (0.0-0.012); NRBC Pct Auto 0.0 /100WBC (0.0-0.2); Platelet Count 317 X10*3/uL (160-400); Red Blood Count 4.52 X10*6/uL (4.20-5.50); White Blood Count 10.1 X10*3/uL (4.8-10.8)
[2025-05-30 16:19] LABS: Alanine Aminotransferase 16 U/L (0-31); Albumin Level 4.8 g/dL (3.5-5.0); Alkaline Phosphatase 95 U/L (39-117); Anion Gap 15 (12-20); Aspartate Amino Transferase 31 U/L (5-31); Blood Urea Nitrogen 17 mg/dL (9-16); Calcium 9.8 mg/dL (8.4-10.2); Carbon Dioxide 24 mmol/L (22-29); Chloride 104 mmol/L (96-108); Creatinine Clr Calc Pharmacy 53.1; Estimated Glomerular Filt Rate 52; Lipase 13 U/L (8-78); Potassium 3.3 mmol/L (3.3-5.1); Sodium 140 mmol/L (135-145); Total Protein 7.5 g/dL (6.5-8.0)
[2025-05-30] MEDS: Lactated Ringers 1,000 ML 999 ML IV (18:02)
[2025-05-30 18:43] VITALS: BP 150/81; PULSE 96; RESP 16; TEMP 36.8; O2SAT 99
[2025-05-30] MEDS: iohexoL 350 MG/ML 100 ML INFUS..BTL IV (19:03)
[2025-05-30 19:28] LABS: Appearance Urine Clear; Glucose Urine UA Negative (Negative); PH 6.0 (5.0-9.0); Specific Gravity - Urine 1.025 (1.005-1.025); UMIC TRIGGER UACC YES
[2025-05-30 19:45] LABS: UACC Culture Trigger YES
[2025-05-30 20:25] VITALS: BP 150/81; PULSE 96; RESP 16; TEMP 36.8; O2SAT 99
== END 2025-05-30 20:25 | disposition home or self-care (01) ==
PROVIDERS: Physician Assistant; Emergency Provider Emergency Medicine; PCP Internal Medicine
DX: R10.9 Unspecified abdominal pain (principal); R19.7 Diarrhea, unspecified; N13.30 Unspecified hydronephrosis
CPT/HCPCS: 36415; 74177; 80053; 81001; 83690; 85025; 87086; 96360; 99284; 99285; J7120; Q9967

== ENCOUNTER → 2025-05-30 17:49 | Outpatient (BNV) | payer MEDICARE, SELFPAY | PROVIDERS: Emergency Provider Emergency Medicine; PCP Internal Medicine; Visit Provider Radiology Diagnostic Radiology | DX: N13.30 Unspecified hydronephrosis (principal) | CPT/HCPCS: 74177 ==

== ENCOUNTER 2025-06-09 08:13 | Outpatient (AMB) | payer MEDICARE, SELFPAY ==
[2025-06-09 08:18] VITALS: BP 122/72; PULSE 78; O2SAT 97; BMI 29.6
--- NOTE | 2025-06-09 08:18 | A.OFFPC_ITS ---
Vital Signs 06/09/25 08:18 Height 5 ft 7 in Weight 189 lb BMI 29.6 BP 122/72 Blood Pressure Location Lt brachial Position Sitting Pulse 78 Pulse Source Pulse Oximeter Pulse Oximetry (%) 97 Oxygen Delivery Method Room Air Intake Visit Reasons: HDF ~ Post hospital discharge FU Allergies anasperine Allergy (Unknown, Uncoded 06/09/25 08:18) swelling Medication List - Last Reconciled 06/09/25 by Jami Mckeon MD buspirone 10 mg PO TID 30 days fluoxetine (Prozac) 20 mg PO BID gabapentin 300 mg PO BID 90 days levothyroxine 100 mcg PO DAILY 90 days quetiapine 300 mg PO BEDTIME 90 days Tobacco use date assessed: 05/18/25 Fall risk assessment: No Falls in past year Last assessed Fall Risk: 06/09/25 Dental Screening Dental Screen Date: 05/18/25 HPI HDF ~ Post hospital discharge FU HPI Details Patient is 75-year-old female came in today for emergency room visit follow-up Dated 05/30/2025 She presented with lower abdominal discomfort and diarrhea with urgency loose stool passing for past several days. Patient has a history of cholecystectomy She had no history of any recent sick contacts, antibiotic or travel On abdominal exam in emergency room she had mild tenderness across the lower abdomen but no guarding or rebound Her blood pressure was 1 30 x 70 which later on increased to 150 x [address] scan of abdomen as well as urine analysis CT scan did not show any acute pathology other than mild hydronephrosis and perhaps mild bladder wall thickening. Urinalysis did not show any signs of UTI Her lab values showed white count of 13.9 hematocrit 39.4 Electrolytes stable Liver enzymes stable After evaluation and IV fluid patient was discharged with a diagnosis of diarrhea and abdominal pain of unclear cause She was given a script of dicyclomine 20 mg tablets 10 count Her other regular medications are Gabapentin 300 mg b.i.d. Quetiapine 300 mg at bedtime Levothyroxine 100 mcg Fluoxetine 20 mg Buspirone 10 mg t.i.d. She came in today for a follow-up appointment Patient suffers from severe anxiety and severe depression She was under care of psych med prescriber at [facility], however she does not want to go back to their care anymore She is off lorazepam Hydronephrosis: - Imaging revealed mild hydronephrosis w ithout identifiable calculi. - Thickness of bladder wall noted to be slightly increased. Anxiety and Depression: - The patient reports improvement in moo d and overall well-being over the past week. Now taking buspirone 10 mg t.i.d. along with fluoxetine Diarrhea: - The patient experienced diarrhea but r eports feeling better now. - Previously prescribed dicyclomine for abdominal cramping related to meals, but did not take it recently due to symptom improvement. Problem List - Diarrhea resolved - Mild hydronephrosis - Anxiety and Depression - bladder wall thickening - history of IBS Patient Instructions - Continue current medications as prescr ibed and monitor symptoms. - Consult with a urologist for further e valuation of hydronephrosis. - Report any changes in symptoms or new discomforts. - you may cancel appointment for next mo nth, and return in three-month for fo llow-up appointment Review of Systems - General: No fever no chills - Neurological: No headaches no dizziness - Ear nose throat: No sore throat no hearing difficulty no ear pain - Cardiovascular: No syncope, no chest pain, no palpitations - Gastrointestinal: No nausea vomiting or diarrhea - Endocrine: No polyuria polydipsia no heat intolerance - Genitourinary: No dysuria , no blood in urine Physical Exam General: No acute distress HEENT: No acute findings Neck: Supple Respiratory system: Able to talk in full sentences, no audible wheeze Cardiovascular: S1-S2 regular in rate and rhythm Gastrointestinal: No pain with palpation, continued to have cramping off and on lower abdomen Extremities: No new findings [employer]AGE [employer] H[employer] 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: Alert awake oriented x3 motor sensory intact Skin: Normal turgor [facility] Medical History Hypothyroidism Surgical History History of back surgery Hx of cholecystectomy Family History Father Heart disease Mother Diabetes mellitus Social History Housing: Other (mobile home) Patient Tobacco Use Status: Never used Tobacco e-Cigarette/Vaping Use: Never Used service: No Current occupational status: retired Cognitive needs: No Hearing needs: No Vision needs: No Questionnaire Thrive Questionnaire Date Thrive assessed: 10/21/24 BATSHEVA-7 AMB Questionnaire BATSHEVA-7 Date BATSHEVA - 7 assessed: 01/22/25 Source: Developed by Drs. Jason Malin, Yohana Fritz, Rei Trevino and colleagues, with an educational shonda from [employer]. Physical exam (Primary Care) Vital Signs: Last Vital Signs Pulse 78 06/09/25 08:18 BP 122/72 06/09/25 08:18 Pulse Ox 97 06/09/25 08:18 Oxygen Delivery Method Room Air 06/09/25 08:18 BMI result Body Mass Index 29.6 Tobacco/Smoking Status: Tobacco use Status Tobacco use date assessed 05/18/25 06/09/25 08:19 Patient Tobacco Use Status Never used Tobacco 06/09/25 08:19 e-Cigarette/Vaping Use Never Used 06/09/25 08:19 Thrive Assessment: Date of Thrive Assessment Date Thrive assessed 10/21/24 06/09/25 08:19 Coding Level of Care Code Est Pt Level 5 (72889) Diagnoses Seen in emergency room Z76.89 Hydronephrosis, left N13.30 Bladder wall thickening N32.89 Irritable bowel syndrome with alternating bowel habits K58.2 Bipolar 1 disorder F31.9 Anxiety, generalized F41.1 Recurrent major depressive disorder, in partial remission F33.41 Active/Remission status: in partial remission Other specified hypothyroidism E03.8 Time Spent (min) 40 Comment Reviewing emergency room note/labs/kiuy-rn-hhkm/coordination of care Assessment & Plan Assessment & Plan (1) Seen in emergency room: Code(s): Z76.89 - Persons encountering health services in other specified circumstances Category: Medical (2) Hydronephrosis, left: Code(s): N13.30 - Unspecified hydronephrosis Category: Medical (3) Bladder wall thickening: Code(s): N32.89 - Other specified disorders of bladder Category: Medical (4) Irritable bowel syndrome with alternating bowel habits: Code(s): K58.2 - Mixed irritable bowel syndrome Category: Medical (5) Bipolar 1 disorder: Code(s): F31.9 - Bipolar disorder, unspecified Category: Medical (6) Anxiety, generalized: Code(s): F41.1 - Generalized anxiety disorder Category: Medical (7) Major depression, recurrent: Code(s): F33.9 - Major depressive disorder, recurrent, unspecified Category: Medical Qualifiers: Active/Remission status: in partial remission Qualified Code(s): F33.41 - Major depressive disorder, recurrent, in partial remission (8) Other specified hypothyroidism: Code(s): E03.8 - Other specified hypothyroidism Category: Medical Plan Patient is 75-year-old female came in today for emergency room visit follow-up Dated 05/30/2025 She presented with lower abdominal discomfort and diarrhea with urgency loose stool passing for past several days. Patient has a history of cholecystectomy She had no history of any recent sick contacts, antibiotic or travel On abdominal exam in emergency room she had mild tenderness across the lower abdomen but no guarding or rebound Her blood pressure was 1 30 x 70 which later on increased to 150 x [address] scan of abdomen as well as urine analysis CT scan did not show any acute pathology other than mild hydronephrosis and perhaps mild bladder wall thickening. Urinalysis did not show any signs of UTI Her lab values showed white count of 13.9 hematocrit 39.4 Electrolytes stable Liver enzymes stable After evaluation and IV fluid patient was discharged with a diagnosis of diarrhea and abdominal pain of unclear cause She was given a script of dicyclomine 20 mg tablets 10 count Her other regular medications are Gabapentin 300 mg b.i.d. Quetiapine 300 mg at bedtime Levothyroxine 100 mcg Fluoxetine 20 mg Buspirone 10 mg t.i.d. She came in today for a follow-up appointment Patient suffers from severe anxiety and severe depression She was under care of psych med prescriber at [facility], however she does not want to go back to their care anymore She is off lorazepam Hydronephrosis: - Imaging revealed mild hydronephrosis without identifiable calculi. - Thickness of bladder wall noted to be slightly increased. Anxiety and Depression: - The patient reports improvement in mood and overall well-being over the past week. Now taking buspirone 10 mg t.i.d. along with fluoxetine Diarrhea: - The patient experienced diarrhea but reports feeling better now. - Previously prescribed dicyclomine for abdominal cramping related to meals, but did not take it recently due to symptom improvement. Problem List - Diarrhea resolved - Mild hydronephrosis - Anxiety and Depression - bladder wall thickening - history of IBS Patient Instructions - Continue current medications as prescribed and monitor symptoms. - Consult with a urologist for further evaluation of hydronephrosis. - Report any changes in symptoms or new discomforts. - you may cancel appointment for next month, and return in three-month for follow-up appointment Orders: Referrals Urology Referral N32.89 - Other specified disorders of bladder Medications: Changed From buspirone 10 mg PO TID 30 days 90 tabs 0RF To buspirone 10 mg PO TID 270 tabs 0RF 90 days From fluoxetine (Prozac) 20 mg PO BID 60 caps 0RF To fluoxetine (Prozac) 20 mg PO BID 180 caps 0RF 90 days Refilled gabapentin 300 mg PO BID 180 caps 0RF 90 days levothyroxine Take it on empty stomach and do not eat anything for 20 minutes 100 mcg PO DAILY 90 tabs 0RF 90 days quetiapine 300 mg PO BEDTIME 90 tabs 0RF 90 days
== END 2025-06-09 08:37 | disposition home or self-care (01) ==
LOC: HO.HMCC 08:13
PROVIDERS: PCP Internal Medicine; Visit Provider Internal Medicine
DX: K58.2 Mixed irritable bowel syndrome (principal); F31.9 Bipolar disorder, unspecified; Z76.89 Persons encountering health services in other specified circumstances; N13.30 Unspecified hydronephrosis; N32.89 Other specified disorders of bladder; F41.1 Generalized anxiety disorder; F33.41 Major depressive disorder, recurrent, in partial remission; E03.8 Other specified hypothyroidism

== ENCOUNTER → 2025-06-09 08:13 | Outpatient (BNVA) | payer MEDICARE, SELFPAY | PROVIDERS: PCP Internal Medicine; Visit Provider Internal Medicine | DX: Z76.89 Persons encountering health services in other specified circumstances (principal); N13.30 Unspecified hydronephrosis; N32.89 Other specified disorders of bladder; K58.2 Mixed irritable bowel syndrome; F41.1 Generalized anxiety disorder; F33.41 Major depressive disorder, recurrent, in partial remission; E03.8 Other specified hypothyroidism | CPT/HCPCS: 99212 ==

== ENCOUNTER 2025-07-06 13:51 | Outpatient (REF) | payer MEDICARE, SELFPAY | END 2025-07-06 13:52 | disposition home or self-care (01) | LOC: HO.MAMMO 13:51 | PROVIDERS: PCP Internal Medicine; Visit Provider Internal Medicine | DX: Z12.31 Encounter for screening mammogram for malignant neoplasm of breast (principal) | CPT/HCPCS: 77063; 77067 ==

== ENCOUNTER → 2025-07-06 15:45 | Outpatient (BNV) | payer MEDICARE, SELFPAY | PROVIDERS: PCP Internal Medicine; Visit Provider Internal Medicine | DX: Z12.31 Encounter for screening mammogram for malignant neoplasm of breast (principal) | CPT/HCPCS: 77063; 77067 ==

== ENCOUNTER 2025-08-16 12:18 | Outpatient (AMB) | payer MEDICARE, SELFPAY ==
--- NOTE | 2025-08-16 12:29 | MHC.OFFVIS ---
Intake Visit Reasons: mild hydro/bladder wall thickening Intake Note: New Patient is present for Mild Hydronephrosis ,& Bladder wall Thickening Urology Rx:None Blood Thinners:none Imaging completed: Abd CT 05/30/25 PVR:173 MLS Track Coach Required: No Accompanied by: Self / Same As Patient Allergies anasperine Allergy (Unknown, Uncoded 08/16/25 12:31) swelling HPI Comments Details: Shelly is a 75 year old female patient of Dr. Mckeon. She has a past medical history of anxiety, depression, and hypothyroidism. She presents to the office today as a new patient for mild hydronephrosis and bladder wall thickening. In discussion with the patient today she reports having seeked emergency room care services a few months ago as she had been experiencing issues with diarrhea and abdominal discomfort at which time a CT was ordered and performed. These results were reviewed and communicated with the patient today. 05/31 mild right-sided hydronephrosis without obstructive calculus. Circumferential bladder wall thickening may be related to a degree of under distention per radiology report. She does report noting a fullness to the bladder area for quite some time. She denies any bothersome urinary issues. She denies urinary urgency, urinary frequency, incontinence, nocturia, hematuria, dysuria, foul smelling urine, changes to urinary stream, flank pain, fever, and or chills. She is happy with her current voiding parameters. Unable to obtain urine for urinalysis today however PVR 173mls. We did discuss incomplete bladder emptying, mild hydro and potential bladder wall thickening noted on recent imaging. We did discussed further treatment options of these urological conditions and risks and benefits of these treatment options. All questions were answered. She otherwise offers no other issues or concerns at this time. BUN: 03/28 16, 03/29 20, 07/29 16, 11/30 17, 06/30 26, 08/30 22, 01/29 17, 05/31 17 Creatinine: 03/28 0.91, 03/29 1.22, 07/29 0.99, 11/30 1.10, 06/30 1.08, 08/30 0.99, 01/29 1.03, 05/31 1.03 PFSH Medical History Hypothyroidism Surgical History History of back surgery Hx of cholecystectomy Family History Father Heart disease Mother Diabetes mellitus Social History Housing: Other (mobile home) Patient Tobacco Use Status: Never used Tobacco e-Cigarette/Vaping Use: Never Used service: No Current occupational status: retired Cognitive needs: No Hearing needs: No Vision needs: No Review of Systems Const All systems reviewed & are unremarkable except as noted in HPI and below Physical Exam Const General: cooperative, healthy appearing, comfortable, no acute distress, well developed, alert and awake Orientation/consciousness: patient oriented x3 Limitations: no limitations HEENT Head: Yes normal to inspection, Yes normocephalic and Yes atraumatic Ears: hearing grossly normal bilaterally Eyes General: appearance normal, both eyes and all related structures Neck Neck: Yes normal visual inspection and Yes trachea midline Chest Chest palpation & inspection: normal inspection of the chest Resp Effort & Inspection: normal respiratory effort and able to speak in complete sentences Cardio Rate: regular rate GI Inspection: Yes normal to inspection General: Yes no CVA tenderness Back/Spine/Pelvis Back: no CVA tenderness Skin General skin exam: no rashes or lesions noted Neuro General: patient oriented x3 Extrem General: Yes normal to inspection Psych Appearance: grossly normal and well kempt Mental Status: mental status grossly normal Speech and movement: Normal speech and movement present and Clear speech present Affect: normal affect Attitude: cooperative Thought process: Normal thought process present Thought content: Normal thought content present Insight: Fair insight present (Psych) Judgement: Fair judgement present (Psych) Office Procedures Post Void Residual Post Residual Void Post Void Residual (PVR): 173 [id number] Void Residual by ultrasound Results Reviewed Results Reviewed: Date of Service: 05/30/25 Procedure(s): CT abdomen pelvis w IV con Findings: Small hiatal hernia. Diffuse esophageal mural thickening, nonspecific. Atelectasis. Hepatomegaly with steatosis. Thickening of the adrenal glands, nonspecific. Bilateral hypodense renal cysts. Mild right-sided hydronephrosis without obstructive calculus. Fluid-filled bowel. No bowel obstruction. Fat containing umbilical hernia. Normal appendix. Scattered colonic diverticulosis without diverticulitis or colitis. Circumferential bladder wall thickening. Osteopenia with diffuse multilevel spondylosis. Multilevel Schmorl's nodes. Diffuse atheromatous plaque disease throughout the aorta and branch vessels, without aneurysmal dilatation. Postcholecystectomy. IMPRESSION: 1. Mild right-sided hydronephrosis without obstructive calculus. 2. Circumferential bladder wall thickening may be related to degree of underdistention or mild cystitis. Assessment & Plan Assessment & Plan (1) Bladder wall thickening: Code(s): N32.89 - Other specified disorders of bladder Category: Medical (2) Hydronephrosis, left: Code(s): N13.30 - Unspecified hydronephrosis Category: Medical (3) Incomplete bladder emptying: Code(s): R33.9 - Retention of urine, unspecified Category: Medical Plan Unable to obtain urine for urinalysis however PVR [address] imaging results reviewed with the patient today; as noted above. Start Flomax as discussed and prescribed. We did discussed potential causes of bladder wall thickening, mild hydronephrosis, and incomplete bladder emptying; we discussed risks and benefits of these interventions. All questions were answered. We did discussed lifestyle modifications to assist with incomplete bladder emptying such as double voiding. Will obtain BUN and creatinine for further assessment evaluation. Will obtain retroperitoneal ultrasound for further assessment evaluation. We did discussed near future in office cystoscopy and or urodynamics for further assessment evaluation Orders: Orders Creatinine Today R39.15 - Urgency of urination US retroperitoneal comp Today N13.30 - Unspecified hydronephrosis, N32.89 - Other specified disorders of bladder, R33.9 - Retention of urine, unspecified Blood Urea Nitrogen Today R39.15 - Urgency of urination Medications: New tamsulosin 0.4 mg PO BEDTIME 30 caps 3RF 30 days N40.1 - Benign prostatic hyperplasia with lower urinary tract symptoms, R35.1 - Nocturia Patient Instructions: The patient had an opportunity to ask questions regarding the treatment plan. All questions were answered. Physical exam, labs, and imaging were discussed and reviewed in detail. As well as risks, benefits, and discussion of treatment choices. No major barriers to understanding were identified. The patient expressed understanding and agreement with the above treatment plan. The patient was made aware they should contact our office by phone for worsening of their current condition, the appearance of new symptoms, or with any questions or concerns. Compliance is encouraged with any medications and follow up testing that is ordered. It is a privilege to be allowed the opportunity to participate in? your urological care.? Again, if you have any questions or concerns If you have any questions or concerns please do not hesitate to contact me. The office is [phone]. This note is constructed using voice recognition software. While every effort has been made to ensure accuracy community health agent errors may have been included. Yours sincerely, FARHANA Neal-RUBÉN Coding Level of Care Code New Pt Level 4 (54945) Diagnoses Bladder wall thickening N32.89 Hydronephrosis, left N13.30 Incomplete bladder emptying R33.9 CPT Codes Post Residual Void - PVR CPT Code: 08877-Nflf Void Residual by ultrasound ([id number])
== END 2025-08-16 13:29 | disposition home or self-care (01) ==
LOC: HO.HUSH 12:19
PROVIDERS: PCP Internal Medicine; Visit Provider Nurse Practitioner Family
DX: N32.89 Other specified disorders of bladder (principal); N13.30 Unspecified hydronephrosis; R33.9 Retention of urine, unspecified
CPT/HCPCS: 99204

== ENCOUNTER → 2025-08-16 12:18 | Outpatient (BNVA) | payer MEDICARE, SELFPAY | PROVIDERS: PCP Internal Medicine; Visit Provider Nurse Practitioner Family | DX: N13.30 Unspecified hydronephrosis (principal); N32.89 Other specified disorders of bladder; R33.9 Retention of urine, unspecified | CPT/HCPCS: 51798; 99202 ==

== ENCOUNTER 2025-09-14 10:01 | Outpatient (AMB) | payer MEDICARE, SELFPAY ==
--- NOTE | 2025-09-14 13:06 | A.OFFPC_ITS ---
Intake Visit Reasons: 3 months f/up Allergies anasperine Allergy (Unknown, Uncoded 08/16/25 12:31) swelling Medication List - Last Reconciled 09/14/25 by Jami Mckeon MD buspirone 10 mg PO TID 90 days fluoxetine (Prozac) 20 mg PO BID 90 days gabapentin 300 mg PO BID 90 days levothyroxine 100 mcg PO DAILY 90 days quetiapine 300 mg PO BEDTIME 90 days tamsulosin 0.4 mg PO BEDTIME 30 days Tobacco use date assessed: 05/18/25 Dental Screening Dental Screen Date: 05/18/25 HPI 3 months f/up HPI Details Patient to 75 year old Heavenly, who suffers from severe anxiety and depression. Currently taking a few medication to control the symptoms. She is on [place] [facility] at night as well 300 mg. Patient isolating medication and her symptoms are well controlled these days. There are no side effects She is under care of urologist currently and is scheduled for bladder ultrasound coming up in October. She will return for her regular follow up with me in three months. Patient does not need any refills at this time.? PFSH Medical History Hypothyroidism Surgical History History of back surgery Hx of cholecystectomy Family History Father Heart disease Mother Diabetes mellitus Social History Housing: Other (mobile home) Patient Tobacco Use Status: Never used Tobacco e-Cigarette/Vaping Use: Never Used service: No Current occupational status: retired Cognitive needs: No Hearing needs: No Vision needs: No Questionnaire Thrive Questionnaire Date Thrive assessed: 10/21/24 BATSHEVA-7 AMB Questionnaire BATSHEVA-7 Date BATSHEVA - 7 assessed: 01/22/25 Source: Developed by Drs. Jason Malin, Yohana Fritz, Rei Trevino and colleagues, with an educational shonda from [employer]. Review of Systems Const Denies chills and Denies fever(s) ENT Denies epistaxis and Denies nasal discharge Card Denies chest pain Resp Denies chest congestion, Denies cough and Denies hemoptysis GI Denies diarrhea and Denies nausea Skin/Breast Denies rash Neuro Reports no additional complaints Psych Reports no additional complaints Endo Reports no additional complaints Physical exam (Primary Care) Tobacco/Smoking Status: Tobacco use Status Tobacco use date assessed 05/18/25 06/09/25 08:19 Patient Tobacco Use Status Never used Tobacco 06/09/25 08:19 e-Cigarette/Vaping Use Never Used 06/09/25 08:19 Thrive Assessment: Date of Thrive Assessment Date Thrive assessed 10/21/24 06/09/25 08:19 Telehealth Telehealth Telehealth Platform: [employer] Location of provider rendering services: practice address Location of patient: address on file Patient Identification confirmed using: Name, : Yes Telehealth method: voice only Patient verbally consented to treatment: Yes Patient verbally consented to billing insurance company: Yes Patient informed of any privacy concerns related to visit: Yes Minutes spent on Phone/Video with Pt.: 13 Coding Level of Care Code Tele Est Pt Level 3 (72741) Diagnoses Bipolar 1 disorder F31.9 Bladder wall thickening N32.89 Anxiety, generalized F41.1 Recurrent major depressive disorder, in partial remission F33.41 Active/Remission status: in partial remission Other specified hypothyroidism E03.8 Hydronephrosis, left N13.30 Assessment & Plan Assessment & Plan (1) Bipolar 1 disorder: Code(s): F31.9 - Bipolar disorder, unspecified Category: Medical (2) Bladder wall thickening: Code(s): N32.89 - Other specified disorders of bladder Category: Medical (3) Anxiety, generalized: Code(s): F41.1 - Generalized anxiety disorder Category: Medical (4) Major depression, recurrent: Code(s): F33.9 - Major depressive disorder, recurrent, unspecified Category: Medical Qualifiers: Active/Remission status: in partial remission Qualified Code(s): F33.41 - Major depressive disorder, recurrent, in partial remission (5) Other specified hypothyroidism: Code(s): E03.8 - Other specified hypothyroidism Category: Medical (6) Hydronephrosis, left: Code(s): N13.30 - Unspecified hydronephrosis Category: Medical Plan Patient to 75 year old Heavenly, who suffers from severe anxiety and depression. Currently taking a few medication to control the symptoms. She is on [place] [facility] at night as well 300 mg. Patient isolating medication and her symptoms are well controlled these days. There are no side effects She is under care of urologist currently and is scheduled for bladder ultrasound coming up in October. She will return for her regular follow up with me in three months. Patient does not need any refills at this time.?
== END 2025-09-14 14:11 | disposition home or self-care (01) ==
LOC: HO.HMCC 10:01
PROVIDERS: PCP Internal Medicine; Visit Provider Internal Medicine
DX: F31.9 Bipolar disorder, unspecified (principal); N32.89 Other specified disorders of bladder; F41.1 Generalized anxiety disorder; F33.41 Major depressive disorder, recurrent, in partial remission; E03.8 Other specified hypothyroidism; N13.30 Unspecified hydronephrosis